=== PATIENT | male | born 1995 | race Caucasian/White ===

== ENCOUNTER 2018-04-12 16:28 | Emergency (ER) | payer BC, OTHER ==
[~2018-04-12] VITALS: Ht 175.3 cm; Wt 53.1 kg
[~2018-04-12 16:28] MED LIST: CEFP200 PO; CLON.1 PO; CLON.5 PO; CYCL10 PO; Clonazepam0.5 MG PO; INSUASPI SUBQ; INSULANI SUBQ; INSULANPEN SC; Lantus100 UNIT/1 SC; NAPR500 PO; Novolog Fl100 UNIT/1 SC; OLAN5 PO; OMEPRAZOLE MAGN20 MG PO; ONDA4 PO; ONDA8 PO; Percocet 5-3251 EACH PO; QUET25 PO; SERT100 PO; TRAZ50 PO; ZOLP5 PO; Zofran Odt4 MG SL
[2018-04-12 17:02] LABS: BASOPHILS ABSOLUTE AUTO 0.02 K/mm3 (0.00-0.23); BASOPHILS PERCENT AUTO 0 % (0-2); EOSINOPHILS PERCENT AUTO 0 % (0-6); Hematocrit 42.4 % (37.0-53.0); Hemoglobin 14.7 g/dL (13.5-17.5); IMMATURE GRAN ABSOLUTE AUTO 0.04 K/mm3 (0.00-0.10); IMMATURE GRAN PERCENT AUTO 0 % (0-1); LYMPHOCYTES ABSOLUTE AUTO 0.86 K/mm3 (0.84-5.20); LYMPHOCYTES PERCENT AUTO 7 % (21-46); MONOCYTES ABSOLUTE AUTO 0.18 K/mm3 (0.16-1.47); MONOCYTES PERCENT AUTO 2 % (4-13); Mean Corpuscular HGB 29.4 pg (26.0-34.0); Mean Corpuscular HGB Conc 34.7 g/dL (31.5-36.5); Mean Corpuscular Volume 85 fL (80-100); Mean Platelet Volume 10.1 fL (9.1-12.4); NEUTROPHILS ABSOLUTE AUTO 10.89 K/mm3 (1.96-9.15); NEUTROPHILS PERCENT AUTO 91 % (41-73); Platelet Count 260 K/mm3 (150-400); RDW Coefficient Variation 12.4 % (11.7-14.2); RDW Standard Deviation 38.1 fL (35.1-46.3); White Blood Cell Count 11.99 K/mm3 (4.00-11.30)
[2018-04-12 17:33] LABS: Alanine Aminotransfer (ALT/SGP 24 U/L (12-78); Albumin, Blood 4.6 g/dL (3.4-5.0); Albumin/Globulin Ratio 1.4 (0.8-1.8); Alk Phos 67 U/L (50-136); Anion Gap 13 mmol/L (6-16); Aspartate Aminotrans (AST/SGOT 15 U/L (12-37); Beta-hydroxybutyrate 36.4 mg/dL (0.2-2.8); Bilirubin, Total 1.2 mg/dL (0.1-1.0); Blood Urea Nitrogen 9 mg/dL (8-24); Bun/Creatinine Ratio 14.2 (12.0-20.0); CO2, Blood 24 mmol/L (21-32); Calcium, Blood 9.5 mg/dL (8.5-10.1); Chloride, Blood 102 mmol/L (98-108); Creatinine, Blood 0.63 mg/dL (0.60-1.20); Globulin, Blood 3.2 g/dL (2.2-4.0); Glomerular Filtration Rate >60 (60-); Glucose, Blood 268 mg/dL (70-99); Potassium, Blood 3.9 mmol/L (3.5-5.5); Sodium, Blood 139 mmol/L (136-145); Total Protein, Blood 7.8 g/dL (6.4-8.2)
[2018-04-12 19:05] LABS: Source, Urine Clean Catch
[2018-04-12 19:09] LABS: Appearance, Urine Clear (Clear); Bilirubin, Urine Neg (Neg); Blood, Urine Neg (Neg); Color, Urine Yellow (P-Yellow); Glucose Qualitative, Urine 4+ (Neg); Ketones, Urine 4+ (Neg); Leukocyte Esterase, Urine Neg (Neg); Nitrite, Urine Neg (Neg); Protein, Urine 2+ (Neg); Urobilinogen, Urine NORM (Normal)
[2018-04-12 19:12] LABS: Red Blood Cells, Urine 0-2 /hpf (0-2)
[2018-04-12 19:13] LABS: Bacteria Rare /hpf; Mucus Light (0-Heavy); Squamous Epithelial Cells Rare /hpf (Few)
[2018-04-12] MEDS ORDERED: Zofran Odt4 MG PO (19:25)
== END 2018-04-12 20:00 | disposition home or self-care (01) ==
LOC: ER 16:28
PROVIDERS: Emergency Medicine
DX: E10.65 Type 1 diabetes mellitus with hyperglycemia (principal); R10.13 Epigastric pain; R11.2 Nausea with vomiting, unspecified; F12.90 Cannabis use, unspecified, uncomplicated; F17.210 Nicotine dependence, cigarettes, uncomplicated; Z88.0 Allergy status to penicillin; Z88.6 Allergy status to analgesic agent
CPT/HCPCS: 36415; 71046; 80053; 81001; 82010; 82947; 83690; 85025; 96361; 96374; 99283; J1815; J2405; J7030

== ENCOUNTER 2018-07-01 08:16 | Emergency (ER) | payer BC, OTHER ==
[~2018-07-01] VITALS: Ht 175.3 cm; Wt 77.1 kg
[~2018-07-01 08:16] MED LIST changes: +Zofran Odt4 MG PO
[2018-07-01] MEDS ORDERED: NAPR500 PO (09:24)
[2018-07-01] MEDS ORDERED: CYCL10 PO (09:24)
[2018-07-01 10:05] LABS: Base Excess Venous 4.2 mmol/L; Bicarbonate Venous 27.3 mmol/L (24.0-30.0); PCO2 Venous 49.5 mmHg (38-42); PO2 Venous 115 mmHg (38-42); pH Blood Venous 7.38 (7.34-7.37)
[2018-07-01 10:12] LABS: BASOPHILS ABSOLUTE AUTO 0.02 K/mm3 (0.00-0.23); BASOPHILS PERCENT AUTO 0 % (0-2); EOSINOPHILS ABSOLUTE AUTO 0.01 K/mm3 (0.00-0.68); EOSINOPHILS PERCENT AUTO 0 % (0-6); Hematocrit 39.6 % (37.0-53.0); Hemoglobin 13.3 g/dL (13.5-17.5); IMMATURE GRAN ABSOLUTE AUTO 0.03 K/mm3 (0.00-0.10); IMMATURE GRAN PERCENT AUTO 0 % (0-1); LYMPHOCYTES ABSOLUTE AUTO 1.32 K/mm3 (0.84-5.20); LYMPHOCYTES PERCENT AUTO 12 % (21-46); MONOCYTES ABSOLUTE AUTO 0.46 K/mm3 (0.16-1.47); MONOCYTES PERCENT AUTO 4 % (4-13); Mean Corpuscular HGB 29.4 pg (26.0-34.0); Mean Corpuscular HGB Conc 33.6 g/dL (31.5-36.5); Mean Corpuscular Volume 87 fL (80-100); Mean Platelet Volume 9.8 fL (9.1-12.4); NEUTROPHILS ABSOLUTE AUTO 9.68 K/mm3 (1.96-9.15); NEUTROPHILS PERCENT AUTO 84 % (41-73); Platelet Count 242 K/mm3 (150-400); RDW Coefficient Variation 12.2 % (11.7-14.2); RDW Standard Deviation 39.1 fL (35.1-46.3); Red Blood Cell Count 4.53 M/mm3 (4.30-5.90); White Blood Cell Count 11.52 K/mm3 (4.00-11.30)
[2018-07-01 10:18] LABS: Alanine Aminotransfer (ALT/SGP 22 U/L (12-78); Albumin, Blood 4.2 g/dL (3.4-5.0); Albumin/Globulin Ratio 1.4 (0.8-1.8); Alk Phos 55 U/L (50-136); Anion Gap 8 mmol/L (6-16); Aspartate Aminotrans (AST/SGOT 14 U/L (12-37); Bilirubin, Total 0.7 mg/dL (0.1-1.0); Blood Urea Nitrogen 12 mg/dL (8-24); Bun/Creatinine Ratio 19.1 (12.0-20.0); CO2, Blood 28 mmol/L (21-32); Calcium, Blood 8.7 mg/dL (8.5-10.1); Chloride, Blood 105 mmol/L (98-108); Creatinine, Blood 0.63 mg/dL (0.60-1.20); Globulin, Blood 2.9 g/dL (2.2-4.0); Glomerular Filtration Rate >60 (60-); Glucose, Blood 180 mg/dL (70-99); Potassium, Blood 4.2 mmol/L (3.5-5.5); Sodium, Blood 141 mmol/L (136-145); Total Protein, Blood 7.1 g/dL (6.4-8.2)
[2018-07-01] MEDS ORDERED: PROM25 PO (10:53)
[2018-07-01] MEDS ORDERED: Prilosec Otc20 MG PO (10:53)
[2018-07-01] MEDS ORDERED: MIRALAX17 GM PO (10:53)
== END 2018-07-01 11:14 | disposition home or self-care (01) ==
LOC: ER 08:16
PROVIDERS: Emergency Medicine
DX: R10.12 Left upper quadrant pain (principal); R11.2 Nausea with vomiting, unspecified; E10.9 Type 1 diabetes mellitus without complications; F41.9 Anxiety disorder, unspecified; F32.9 Major depressive disorder, single episode, unspecified; F17.210 Nicotine dependence, cigarettes, uncomplicated; Z88.0 Allergy status to penicillin; Z88.6 Allergy status to analgesic agent
CPT/HCPCS: 36415; 74022; 80053; 81000; 82803; 83690; 85025; 96361; 96374; 99284-25; J2550; J7120

== ENCOUNTER 2018-11-29 17:39 | Emergency (ER) | payer BC, OTHER ==
[~2018-11-29] VITALS: Ht 175.3 cm; Wt 77.1 kg
[~2018-11-29 17:39] MED LIST changes: +MIRALAX17 GM PO; +PROM25 PO; +Prilosec Otc20 MG PO
[2018-11-29 18:24] LABS: BASOPHILS ABSOLUTE AUTO 0.04 K/mm3 (0.00-0.23); BASOPHILS PERCENT AUTO 0 % (0-2); EOSINOPHILS PERCENT AUTO 0 % (0-6); Hematocrit 44.2 % (37.0-53.0); Hemoglobin 15.1 g/dL (13.5-17.5); IMMATURE GRAN ABSOLUTE AUTO 0.04 K/mm3 (0.00-0.10); IMMATURE GRAN PERCENT AUTO 0 % (0-1); LYMPHOCYTES ABSOLUTE AUTO 1.21 K/mm3 (0.84-5.20); LYMPHOCYTES PERCENT AUTO 8 % (21-46); MONOCYTES PERCENT AUTO 3 % (4-13); Mean Corpuscular HGB 29.4 pg (26.0-34.0); Mean Corpuscular HGB Conc 34.2 g/dL (31.5-36.5); Mean Corpuscular Volume 86 fL (80-100); Mean Platelet Volume 10.3 fL (9.1-12.4); NEUTROPHILS ABSOLUTE AUTO 12.74 K/mm3 (1.96-9.15); NEUTROPHILS PERCENT AUTO 88 % (41-73); Platelet Count 300 K/mm3 (150-400); RDW Standard Deviation 38.2 fL (35.1-46.3); Red Blood Cell Count 5.13 M/mm3 (4.30-5.90); White Blood Cell Count 14.43 K/mm3 (4.00-11.30)
[2018-11-29 18:45] LABS: Alanine Aminotransfer (ALT/SGP 31 U/L (12-78); Albumin, Blood 4.5 g/dL (3.4-5.0); Albumin/Globulin Ratio 1.2 (0.8-1.8); Alk Phos 72 U/L (50-136); Anion Gap 9 mmol/L (6-16); Aspartate Aminotrans (AST/SGOT 10 U/L (12-37); Bilirubin, Total 0.7 mg/dL (0.1-1.0); Blood Urea Nitrogen 11 mg/dL (8-24); Bun/Creatinine Ratio 15.6 (12.0-20.0); CO2, Blood 27 mmol/L (21-32); Calcium, Blood 9.2 mg/dL (8.5-10.1); Chloride, Blood 102 mmol/L (98-108); Creatinine, Blood 0.71 mg/dL (0.60-1.20); Globulin, Blood 3.7 g/dL (2.2-4.0); Glomerular Filtration Rate >60 (60-); Glucose, Blood 210 mg/dL (70-99); Potassium, Blood 3.7 mmol/L (3.5-5.5); Sodium, Blood 138 mmol/L (136-145); Total Protein, Blood 8.2 g/dL (6.4-8.2)
[2018-11-29] MEDS ORDERED: ONDA4ODT MM (22:11)
[2018-11-29] MEDS ORDERED: PHENERGAN25 MG PR (22:11)
[2018-11-29] MEDS ORDERED: OMEPRAZOLE MAGN20 MG PO (22:11)
== END 2018-11-29 22:42 | disposition home or self-care (01) ==
LOC: ER 17:39
PROVIDERS: Physician Assistant
DX: K52.9 Noninfective gastroenteritis and colitis, unspecified (principal); E10.9 Type 1 diabetes mellitus without complications; F41.9 Anxiety disorder, unspecified; F32.9 Major depressive disorder, single episode, unspecified; F17.210 Nicotine dependence, cigarettes, uncomplicated; Z88.1 Allergy status to other antibiotic agents; Z88.6 Allergy status to analgesic agent; Z79.899 Other long term (current) drug therapy
CPT/HCPCS: 36415; 80053; 82947; 83690; 85025; 93005; 93010; 96361; 96374; 96375; 99284-25; J1200; J1630; J2405; J2550; J7030

== ENCOUNTER 2018-12-02 15:51 | Emergency (ER) | payer BC, OTHER ==
[~2018-12-02] VITALS: Ht 175.3 cm; Wt 74.8 kg
[2018-12-02 16:43] LABS: BASOPHILS ABSOLUTE AUTO 0.03 K/mm3 (0.00-0.23); BASOPHILS PERCENT AUTO 0 % (0-2); EOSINOPHILS PERCENT AUTO 0 % (0-6); Hematocrit 43.4 % (37.0-53.0); Hemoglobin 14.8 g/dL (13.5-17.5); IMMATURE GRAN ABSOLUTE AUTO 0.04 K/mm3 (0.00-0.10); IMMATURE GRAN PERCENT AUTO 0 % (0-1); LYMPHOCYTES ABSOLUTE AUTO 1.61 K/mm3 (0.84-5.20); LYMPHOCYTES PERCENT AUTO 12 % (21-46); MONOCYTES ABSOLUTE AUTO 0.73 K/mm3 (0.16-1.47); MONOCYTES PERCENT AUTO 6 % (4-13); Mean Corpuscular HGB 29.4 pg (26.0-34.0); Mean Corpuscular HGB Conc 34.1 g/dL (31.5-36.5); Mean Corpuscular Volume 86 fL (80-100); NEUTROPHILS ABSOLUTE AUTO 10.87 K/mm3 (1.96-9.15); NEUTROPHILS PERCENT AUTO 82 % (41-73); Platelet Count 272 K/mm3 (150-400); Red Blood Cell Count 5.03 M/mm3 (4.30-5.90); White Blood Cell Count 13.28 K/mm3 (4.00-11.30)
[2018-12-02 17:23] LABS: Magnesium, Blood 2.4 mg/dL (1.6-2.4)
[2018-12-02 17:32] LABS: Alanine Aminotransfer (ALT/SGP 58 U/L (12-78); Albumin, Blood 3.8 g/dL (3.4-5.0); Albumin/Globulin Ratio 1.2 (0.8-1.8); Alk Phos 65 U/L (50-136); Anion Gap 11 mmol/L (6-16); Aspartate Aminotrans (AST/SGOT 36 U/L (12-37); Beta-hydroxybutyrate 11.5 mg/dL (0.2-2.8); Bilirubin, Total 1.4 mg/dL (0.1-1.0); Blood Urea Nitrogen 15 mg/dL (8-24); Bun/Creatinine Ratio 21.5 (12.0-20.0); CO2, Blood 24 mmol/L (21-32); Chloride, Blood 101 mmol/L (98-108); Globulin, Blood 3.2 g/dL (2.2-4.0); Glomerular Filtration Rate >60 (60-); Glucose, Blood 224 mg/dL (70-99); Sodium, Blood 136 mmol/L (136-145)
[2018-12-02 19:58] LABS: Source, Urine Clean Catch
[2018-12-02 20:05] LABS: Appearance, Urine Clear (Clear); Bilirubin, Urine Neg (Neg); Blood, Urine 1+ (Neg); Color, Urine Yellow (P-Yellow); Glucose Qualitative, Urine 2+ (Neg); Ketones, Urine 4+ (Neg); Leukocyte Esterase, Urine Neg (Neg); Nitrite, Urine Neg (Neg); Protein, Urine 1+ (Neg); Specific Gravity, Urine 1.025 (1.003-1.022); Urobilinogen, Urine 2+ (Normal)
[2018-12-02 20:37] LABS: Bacteria Not Seen /hpf; Red Blood Cells, Urine 0-2 /hpf (0-2); Squamous Epithelial Cells Rare /hpf (Few); White Blood Cells, Urine 0-2 /hpf (0-5)
[2018-12-02] MEDS ORDERED: PROM25 PO (21:52)
[2018-12-02] MEDS ORDERED: ONDA4ODT MM (21:52)
== END 2018-12-02 22:03 | disposition home or self-care (01) ==
LOC: ER 15:51
PROVIDERS: Physician Assistant
DX: E10.65 Type 1 diabetes mellitus with hyperglycemia (principal); E86.0 Dehydration; K29.70 Gastritis, unspecified, without bleeding; Z88.0 Allergy status to penicillin; Z88.8 Allergy status to other drugs, medicaments and biological substances; Z79.899 Other long term (current) drug therapy; F41.9 Anxiety disorder, unspecified; F32.9 Major depressive disorder, single episode, unspecified; F17.210 Nicotine dependence, cigarettes, uncomplicated
CPT/HCPCS: 36415; 80053; 81001; 82010; 82947; 83735; 85025; 93005; 93010; 96361; 96374; 96375; 99283-25; J2405; J2550; J7030

== ENCOUNTER → 2018-12-02 | Outpatient (CLI) | payer BC, OTHER ==
[~2018-12-02] MED LIST changes: +ONDA4ODT MM; +PHENERGAN25 MG PR
[2018-12-02 13:30] LABS: BASOPHILS ABSOLUTE AUTO 0.03 K/mm3 (0.00-0.23); BASOPHILS PERCENT AUTO 0 % (0-2); EOSINOPHILS ABSOLUTE AUTO 0.02 K/mm3 (0.00-0.68); EOSINOPHILS PERCENT AUTO 0 % (0-6); Hematocrit 47.5 % (37.0-53.0); Hemoglobin 16.6 g/dL (13.5-17.5); IMMATURE GRAN ABSOLUTE AUTO 0.05 K/mm3 (0.00-0.10); IMMATURE GRAN PERCENT AUTO 0 % (0-1); LYMPHOCYTES ABSOLUTE AUTO 1.52 K/mm3 (0.84-5.20); LYMPHOCYTES PERCENT AUTO 11 % (21-46); MONOCYTES ABSOLUTE AUTO 0.78 K/mm3 (0.16-1.47); MONOCYTES PERCENT AUTO 6 % (4-13); Mean Corpuscular HGB 29.2 pg (26.0-34.0); Mean Corpuscular HGB Conc 34.9 g/dL (31.5-36.5); Mean Corpuscular Volume 84 fL (80-100); Mean Platelet Volume 10.2 fL (9.1-12.4); NEUTROPHILS ABSOLUTE AUTO 11.63 K/mm3 (1.96-9.15); NEUTROPHILS PERCENT AUTO 83 % (41-73); Platelet Count 319 K/mm3 (150-400); RDW Coefficient Variation 12.3 % (11.7-14.2); RDW Standard Deviation 37.1 fL (35.1-46.3); Red Blood Cell Count 5.69 M/mm3 (4.30-5.90); White Blood Cell Count 14.03 K/mm3 (4.00-11.30)
[2018-12-02 13:45] LABS: Alanine Aminotransfer (ALT/SGP 55 U/L (12-78); Albumin, Blood 4.6 g/dL (3.4-5.0); Albumin/Globulin Ratio 1.2 (0.8-1.8); Alk Phos 78 U/L (40-126); Anion Gap 13 mmol/L (6-16); Aspartate Aminotrans (AST/SGOT 34 U/L (12-37); Bilirubin, Total 1.7 mg/dL (0.1-1.0); Blood Urea Nitrogen 16 mg/dL (8-24); CO2, Blood 29 mmol/L (21-32); Calcium, Blood 9.7 mg/dL (8.5-10.1); Chloride, Blood 94 mmol/L (98-108); Globulin, Blood 3.7 g/dL (2.2-4.0); Glomerular Filtration Rate >60 (60-); Glucose, Blood 216 mg/dL (70-99); Potassium, Blood 3.9 mmol/L (3.5-5.5); Sodium, Blood 136 mmol/L (136-145); Total Protein, Blood 8.3 g/dL (6.4-8.2)
== END ==
LOC: LAB SHORT 13:24 → LAB EV 13:24
PROVIDERS: Emergency Medicine
DX: R11.2 Nausea with vomiting, unspecified (principal); R10.9 Unspecified abdominal pain
CPT/HCPCS: 80053; 82010; 83690; 85025

== ENCOUNTER 2018-12-04 20:25 | Emergency (ER) | payer BC, OTHER ==
[~2018-12-04] VITALS: Ht 175.3 cm; Wt 72.6 kg
[2018-12-04 21:10] LABS: BASOPHILS ABSOLUTE AUTO 0.05 K/mm3 (0.00-0.23); BASOPHILS PERCENT AUTO 0 % (0-2); EOSINOPHILS ABSOLUTE AUTO 0.02 K/mm3 (0.00-0.68); EOSINOPHILS PERCENT AUTO 0 % (0-6); Hemoglobin 15.4 g/dL (13.5-17.5); IMMATURE GRAN ABSOLUTE AUTO 0.04 K/mm3 (0.00-0.10); IMMATURE GRAN PERCENT AUTO 0 % (0-1); LYMPHOCYTES ABSOLUTE AUTO 1.74 K/mm3 (0.84-5.20); LYMPHOCYTES PERCENT AUTO 15 % (21-46); MONOCYTES ABSOLUTE AUTO 0.61 K/mm3 (0.16-1.47); MONOCYTES PERCENT AUTO 5 % (4-13); Mean Corpuscular HGB 29.3 pg (26.0-34.0); Mean Corpuscular HGB Conc 34.2 g/dL (31.5-36.5); Mean Corpuscular Volume 86 fL (80-100); Mean Platelet Volume 9.9 fL (9.1-12.4); NEUTROPHILS ABSOLUTE AUTO 9.04 K/mm3 (1.96-9.15); NEUTROPHILS PERCENT AUTO 79 % (41-73); Platelet Count 309 K/mm3 (150-400); RDW Coefficient Variation 11.8 % (11.7-14.2); Red Blood Cell Count 5.25 M/mm3 (4.30-5.90)
[2018-12-04 21:53] LABS: Beta-hydroxybutyrate 5.7 mg/dL (0.2-2.8)
[2018-12-04 22:14] LABS: Alanine Aminotransfer (ALT/SGP 148 U/L (12-78); Albumin, Blood 4.2 g/dL (3.4-5.0); Albumin/Globulin Ratio 1.3 (0.8-1.8); Alk Phos 72 U/L (50-136); Anion Gap 9 mmol/L (6-16); Aspartate Aminotrans (AST/SGOT 67 U/L (12-37); Bilirubin, Total 1.1 mg/dL (0.1-1.0); Blood Urea Nitrogen 11 mg/dL (8-24); CO2, Blood 30 mmol/L (21-32); Calcium, Blood 8.8 mg/dL (8.5-10.1); Chloride, Blood 102 mmol/L (98-108); Creatinine, Blood 0.79 mg/dL (0.60-1.20); Globulin, Blood 3.3 g/dL (2.2-4.0); Glomerular Filtration Rate >60 (60-); Glucose, Blood 40 mg/dL (70-99); Potassium, Blood 3.5 mmol/L (3.5-5.5); Sodium, Blood 141 mmol/L (136-145); Total Protein, Blood 7.5 g/dL (6.4-8.2)
== END 2018-12-05 00:28 | disposition home or self-care (01) ==
LOC: ER 20:25
PROVIDERS: Emergency Medicine
DX: K52.9 Noninfective gastroenteritis and colitis, unspecified (principal); E10.649 Type 1 diabetes mellitus with hypoglycemia without coma; Z88.8 Allergy status to other drugs, medicaments and biological substances; Z79.4 Long term (current) use of insulin; F32.9 Major depressive disorder, single episode, unspecified; F41.9 Anxiety disorder, unspecified; F17.210 Nicotine dependence, cigarettes, uncomplicated
CPT/HCPCS: 36415; 80053; 82010; 82947; 83690; 85025; 96374; 96375; 99284-25; J2405

== ENCOUNTER 2019-04-20 15:52 | Emergency (ER) | payer BC, OTHER ==
[~2019-04-20] VITALS: Ht 175.3 cm; Wt 77.1 kg
[2019-04-20 16:24] LABS: BASOPHILS ABSOLUTE AUTO 0.04 K/mm3 (0.00-0.23); BASOPHILS PERCENT AUTO 0 % (0-2); EOSINOPHILS ABSOLUTE AUTO 0.02 K/mm3 (0.00-0.68); EOSINOPHILS PERCENT AUTO 0 % (0-6); Hematocrit 45.4 % (37.0-53.0); Hemoglobin 15.2 g/dL (13.5-17.5); IMMATURE GRAN ABSOLUTE AUTO 0.08 K/mm3 (0.00-0.10); IMMATURE GRAN PERCENT AUTO 0 % (0-1); LYMPHOCYTES ABSOLUTE AUTO 1.36 K/mm3 (0.84-5.20); LYMPHOCYTES PERCENT AUTO 7 % (21-46); MONOCYTES ABSOLUTE AUTO 0.63 K/mm3 (0.16-1.47); MONOCYTES PERCENT AUTO 3 % (4-13); Mean Corpuscular HGB Conc 33.5 g/dL (31.5-36.5); Mean Corpuscular Volume 87 fL (80-100); Mean Platelet Volume 10.3 fL (9.1-12.4); NEUTROPHILS ABSOLUTE AUTO 16.38 K/mm3 (1.96-9.15); NEUTROPHILS PERCENT AUTO 89 % (41-73); Platelet Count 295 K/mm3 (150-400); RDW Coefficient Variation 12.4 % (11.7-14.2); RDW Standard Deviation 38.8 fL (35.1-46.3); Red Blood Cell Count 5.25 M/mm3 (4.30-5.90); White Blood Cell Count 18.51 K/mm3 (4.00-11.30)
[2019-04-20 16:40] LABS: Alanine Aminotransfer (ALT/SGP 25 U/L (12-78); Albumin, Blood 4.7 g/dL (3.4-5.0); Albumin/Globulin Ratio 1.3 (0.8-1.8); Alk Phos 71 U/L (50-136); Anion Gap 8 mmol/L (6-16); Aspartate Aminotrans (AST/SGOT 13 U/L (12-37); Bilirubin, Total 0.8 mg/dL (0.1-1.0); Blood Urea Nitrogen 13 mg/dL (8-24); Bun/Creatinine Ratio 19.1 (12.0-20.0); CO2, Blood 28 mmol/L (21-32); Calcium, Blood 9.8 mg/dL (8.5-10.1); Chloride, Blood 105 mmol/L (98-108); Creatinine, Blood 0.68 mg/dL (0.60-1.20); Globulin, Blood 3.5 g/dL (2.2-4.0); Glomerular Filtration Rate >60 (60-); Glucose, Blood 167 mg/dL (70-99); Sodium, Blood 141 mmol/L (136-145); Total Protein, Blood 8.2 g/dL (6.4-8.2)
[2019-04-20] MEDS ORDERED: INSULANPEN SC (17:57)
[2019-04-20 18:03] LABS: Source, Urine Clean Catch
[2019-04-20 18:08] LABS: Bilirubin, Urine Neg (Neg); Blood, Urine Neg (Neg); Glucose Qualitative, Urine Neg (Neg); Ketones, Urine 4+ (Neg); Leukocyte Esterase, Urine Neg (Neg); Nitrite, Urine Neg (Neg); Protein, Urine 1+ (Neg); Urobilinogen, Urine NORM (Normal)
[2019-04-20 18:16] LABS: Appearance, Urine Clear (Clear); Color, Urine Yellow (P-Yellow)
[2019-04-20] MEDS ORDERED: COMPAZINE10 MG PO (18:29)
== END 2019-04-20 19:03 | disposition home or self-care (01) ==
LOC: ER 15:52
PROVIDERS: Physician Assistant
DX: R11.2 Nausea with vomiting, unspecified (principal); E86.0 Dehydration; E11.9 Type 2 diabetes mellitus without complications; F41.9 Anxiety disorder, unspecified; F31.9 Bipolar disorder, unspecified; F17.210 Nicotine dependence, cigarettes, uncomplicated
CPT/HCPCS: 36415; 80053; 82947; 85025; 96361; 96374; 96375; 99284-25; J1200; J1630; J2405; J7030

== ENCOUNTER → 2019-04-22 | Outpatient (CLI) | payer BC, OTHER ==
[~2019-04-22] MED LIST changes: +ARTHRITIS PAIN57 GM TOP; +COMPAZINE10 MG PO; +METO10 PO; +Norco 5-325 Ta1 EACH PO; +Protonix40 MG PO
[2019-04-22 10:18] LABS: BASOPHILS ABSOLUTE AUTO 0.02 K/mm3 (0.00-0.23); BASOPHILS PERCENT AUTO 0 % (0-2); EOSINOPHILS PERCENT AUTO 0 % (0-6); Hematocrit 41.7 % (37.0-53.0); Hemoglobin 14.6 g/dL (13.5-17.5); IMMATURE GRAN ABSOLUTE AUTO 0.04 K/mm3 (0.00-0.10); IMMATURE GRAN PERCENT AUTO 0 % (0-1); LYMPHOCYTES ABSOLUTE AUTO 1.14 K/mm3 (0.84-5.20); LYMPHOCYTES PERCENT AUTO 8 % (21-46); MONOCYTES ABSOLUTE AUTO 0.62 K/mm3 (0.16-1.47); MONOCYTES PERCENT AUTO 4 % (4-13); Mean Corpuscular HGB 29.4 pg (26.0-34.0); Mean Platelet Volume 10.1 fL (9.1-12.4); NEUTROPHILS ABSOLUTE AUTO 12.85 K/mm3 (1.96-9.15); NEUTROPHILS PERCENT AUTO 88 % (41-73); Platelet Count 275 K/mm3 (150-400); RDW Coefficient Variation 12.5 % (11.7-14.2); RDW Standard Deviation 37.9 fL (35.1-46.3); Red Blood Cell Count 4.97 M/mm3 (4.30-5.90); White Blood Cell Count 14.67 K/mm3 (4.00-11.30)
[2019-04-22 10:27] LABS: Mean Corpuscular Volume 84 fL (80-100)
[2019-04-22 10:28] LABS: Alanine Aminotransfer (ALT/SGP 25 U/L (12-78); Albumin, Blood 4.5 g/dL (3.4-5.0); Albumin/Globulin Ratio 1.3 (0.8-1.8); Alk Phos 68 U/L (40-126); Anion Gap 12 mmol/L (6-16); Aspartate Aminotrans (AST/SGOT 14 U/L (12-37); Bilirubin, Total 1.1 mg/dL (0.1-1.0); Blood Urea Nitrogen 14 mg/dL (8-24); Bun/Creatinine Ratio 17.5 (12.0-20.0); CO2, Blood 29 mmol/L (21-32); Calcium, Blood 9.2 mg/dL (8.5-10.1); Chloride, Blood 97 mmol/L (98-108); Globulin, Blood 3.5 g/dL (2.2-4.0); Glomerular Filtration Rate >60 (60-); Glucose, Blood 171 mg/dL (70-99); Potassium, Blood 3.9 mmol/L (3.5-5.5); Sodium, Blood 138 mmol/L (136-145)
== END | disposition home or self-care (01) ==
LOC: LAB EV 10:12 → LAB SHORT 10:12
PROVIDERS: Physician Assistant Medical
DX: R10.84 Generalized abdominal pain (principal)
CPT/HCPCS: 80053; 83690; 85025

== ENCOUNTER 2019-04-24 19:27 | Emergency (ER) | payer BC, OTHER ==
[~2019-04-24] VITALS: Ht 177.8 cm; Wt 73.0 kg
[~2019-04-24 19:27] MED LIST changes: -ARTHRITIS PAIN57 GM TOP; -METO10 PO; -Norco 5-325 Ta1 EACH PO; -Protonix40 MG PO
== END 2019-04-24 23:11 | disposition home or self-care (01) ==
LOC: ER 19:27
DX: R11.2 Nausea with vomiting, unspecified (principal); R19.7 Diarrhea, unspecified; Z88.0 Allergy status to penicillin; Z88.6 Allergy status to analgesic agent; Z79.4 Long term (current) use of insulin; Z79.899 Other long term (current) drug therapy; E10.9 Type 1 diabetes mellitus without complications; F32.9 Major depressive disorder, single episode, unspecified; F41.9 Anxiety disorder, unspecified; F17.210 Nicotine dependence, cigarettes, uncomplicated
CPT/HCPCS: 76705; 82947; 96361; 96374; 96375; 99284-25; J1200; J1630; J2550; J7030

== ENCOUNTER → 2019-04-24 | Outpatient (CLI) | payer BC, OTHER ==
[2019-04-24 18:26] LABS: BASOPHILS ABSOLUTE AUTO 0.02 K/mm3 (0.00-0.23); BASOPHILS PERCENT AUTO 0 % (0-2); EOSINOPHILS ABSOLUTE AUTO 0.02 K/mm3 (0.00-0.68); EOSINOPHILS PERCENT AUTO 0 % (0-6); Hematocrit 42.8 % (37.0-53.0); IMMATURE GRAN ABSOLUTE AUTO 0.02 K/mm3 (0.00-0.10); IMMATURE GRAN PERCENT AUTO 0 % (0-1); LYMPHOCYTES ABSOLUTE AUTO 1.83 K/mm3 (0.84-5.20); LYMPHOCYTES PERCENT AUTO 19 % (21-46); MONOCYTES ABSOLUTE AUTO 0.63 K/mm3 (0.16-1.47); MONOCYTES PERCENT AUTO 6 % (4-13); Mean Corpuscular Volume 83 fL (80-100); Mean Platelet Volume 10.3 fL (9.1-12.4); NEUTROPHILS ABSOLUTE AUTO 7.27 K/mm3 (1.96-9.15); NEUTROPHILS PERCENT AUTO 74 % (41-73); Platelet Count 291 K/mm3 (150-400); RDW Coefficient Variation 12.3 % (11.7-14.2); Red Blood Cell Count 5.18 M/mm3 (4.30-5.90); White Blood Cell Count 9.79 K/mm3 (4.00-11.30)
[2019-04-24 18:35] LABS: Alanine Aminotransfer (ALT/SGP 22 U/L (12-78); Albumin, Blood 4.3 g/dL (3.4-5.0); Albumin/Globulin Ratio 1.3 (0.8-1.8); Alk Phos 67 U/L (40-126); Anion Gap 11 mmol/L (6-16); Aspartate Aminotrans (AST/SGOT 15 U/L (12-37); Bilirubin, Total 1.4 mg/dL (0.1-1.0); Blood Urea Nitrogen 12 mg/dL (8-24); Bun/Creatinine Ratio 16.9 (12.0-20.0); CO2, Blood 29 mmol/L (21-32); Calcium, Blood 9.5 mg/dL (8.5-10.1); Chloride, Blood 99 mmol/L (98-108); Creatinine, Blood 0.71 mg/dL (0.60-1.20); Globulin, Blood 3.4 g/dL (2.2-4.0); Glomerular Filtration Rate >60 (60-); Glucose, Blood 130 mg/dL (70-99); Potassium, Blood 3.7 mmol/L (3.5-5.5); Sodium, Blood 139 mmol/L (136-145); Total Protein, Blood 7.7 g/dL (6.4-8.2)
== END | disposition home or self-care (01) ==
LOC: LAB EV 18:20 → LAB SHORT 18:20
PROVIDERS: Physician Assistant
DX: R10.13 Epigastric pain (principal)
CPT/HCPCS: 80053; 83690; 85025

== ENCOUNTER 2019-04-26 00:34 | Emergency (ER) | payer BC, OTHER ==
[~2019-04-26] VITALS: Ht 177.8 cm; Wt 72.6 kg
[2019-04-26 04:07] LABS: BASOPHILS ABSOLUTE AUTO 0.07 K/mm3 (0.00-0.23); BASOPHILS PERCENT AUTO 1 % (0-2); EOSINOPHILS ABSOLUTE AUTO 0.13 K/mm3 (0.00-0.68); EOSINOPHILS PERCENT AUTO 2 % (0-6); Hematocrit 40.4 % (37.0-53.0); Hemoglobin 13.6 g/dL (13.5-17.5); IMMATURE GRAN ABSOLUTE AUTO 0.01 K/mm3 (0.00-0.10); IMMATURE GRAN PERCENT AUTO 0 % (0-1); LYMPHOCYTES ABSOLUTE AUTO 1.87 K/mm3 (0.84-5.20); LYMPHOCYTES PERCENT AUTO 24 % (21-46); MONOCYTES ABSOLUTE AUTO 0.59 K/mm3 (0.16-1.47); MONOCYTES PERCENT AUTO 8 % (4-13); Mean Corpuscular HGB 28.9 pg (26.0-34.0); Mean Corpuscular HGB Conc 33.7 g/dL (31.5-36.5); Mean Platelet Volume 10.3 fL (9.1-12.4); NEUTROPHILS ABSOLUTE AUTO 5.01 K/mm3 (1.96-9.15); NEUTROPHILS PERCENT AUTO 65 % (41-73); Platelet Count 239 K/mm3 (150-400); RDW Coefficient Variation 11.9 % (11.7-14.2); RDW Standard Deviation 37.4 fL (35.1-46.3); White Blood Cell Count 7.68 K/mm3 (4.00-11.30)
[2019-04-26 04:09] LABS: Mean Corpuscular Volume 86 fL (80-100)
[2019-04-26 04:31] LABS: Alanine Aminotransfer (ALT/SGP 22 U/L (12-78); Albumin, Blood 3.8 g/dL (3.4-5.0); Albumin/Globulin Ratio 1.4 (0.8-1.8); Alk Phos 57 U/L (50-136); Anion Gap 9 mmol/L (6-16); Aspartate Aminotrans (AST/SGOT 9 U/L (12-37); Bilirubin, Total 1.4 mg/dL (0.1-1.0); Blood Urea Nitrogen 10 mg/dL (8-24); Bun/Creatinine Ratio 15.4 (12.0-20.0); CO2, Blood 27 mmol/L (21-32); Calcium, Blood 8.4 mg/dL (8.5-10.1); Chloride, Blood 99 mmol/L (98-108); Creatinine, Blood 0.65 mg/dL (0.60-1.20); Globulin, Blood 2.7 g/dL (2.2-4.0); Glomerular Filtration Rate >60 (60-); Glucose, Blood 301 mg/dL (70-99); Magnesium, Blood 2.1 mg/dL (1.6-2.4); Sodium, Blood 135 mmol/L (136-145); Total Protein, Blood 6.5 g/dL (6.4-8.2)
[2019-04-26] MEDS ORDERED: METO10 PO (05:28)
[2019-04-26] MEDS ORDERED: Protonix40 MG PO (05:28)
== END 2019-04-26 08:10 | disposition home or self-care (01) ==
LOC: ER 00:34
PROVIDERS: Emergency Medicine
DX: G43.A0 Cyclical vomiting, in migraine, not intractable (principal); E86.0 Dehydration; E10.65 Type 1 diabetes mellitus with hyperglycemia; F41.9 Anxiety disorder, unspecified; F32.9 Major depressive disorder, single episode, unspecified; F17.200 Nicotine dependence, unspecified, uncomplicated; Z88.1 Allergy status to other antibiotic agents; Z79.4 Long term (current) use of insulin
CPT/HCPCS: 36415; 80053; 82947; 83690; 83735; 85025; 96361; 96374; 96375; 96376; 99284-25; J1200; J1630; J2765; J7120

== ENCOUNTER 2019-06-09 17:01 | Emergency (ER) | payer OTHER ==
[~2019-06-09] VITALS: Ht 177.8 cm; Wt 77.1 kg
[~2019-06-09 17:01] MED LIST changes: +METO10 PO; +Protonix40 MG PO
[2019-06-09 17:58] LABS: BASOPHILS ABSOLUTE AUTO 0.04 K/mm3 (0.00-0.23); BASOPHILS PERCENT AUTO 0 % (0-2); EOSINOPHILS ABSOLUTE AUTO 0.06 K/mm3 (0.00-0.68); EOSINOPHILS PERCENT AUTO 0 % (0-6); Hematocrit 43.8 % (37.0-53.0); Hemoglobin 14.9 g/dL (13.5-17.5); IMMATURE GRAN ABSOLUTE AUTO 0.11 K/mm3 (0.00-0.10); IMMATURE GRAN PERCENT AUTO 1 % (0-1); LYMPHOCYTES ABSOLUTE AUTO 1.49 K/mm3 (0.84-5.20); LYMPHOCYTES PERCENT AUTO 9 % (21-46); MONOCYTES ABSOLUTE AUTO 1.16 K/mm3 (0.16-1.47); MONOCYTES PERCENT AUTO 7 % (4-13); Mean Corpuscular HGB 29.3 pg (26.0-34.0); Mean Corpuscular Volume 86 fL (80-100); Mean Platelet Volume 10.4 fL (9.1-12.4); NEUTROPHILS ABSOLUTE AUTO 14.16 K/mm3 (1.96-9.15); NEUTROPHILS PERCENT AUTO 83 % (41-73); Platelet Count 255 K/mm3 (150-400); RDW Coefficient Variation 12.3 % (11.7-14.2); RDW Standard Deviation 38.8 fL (35.1-46.3); Red Blood Cell Count 5.09 M/mm3 (4.30-5.90); White Blood Cell Count 17.02 K/mm3 (4.00-11.30)
[2019-06-09 18:08] LABS: Alanine Aminotransfer (ALT/SGP 31 U/L (12-78); Albumin, Blood 4.3 g/dL (3.4-5.0); Albumin/Globulin Ratio 1.2 (0.8-1.8); Alk Phos 75 U/L (50-136); Anion Gap 8 mmol/L (6-16); Aspartate Aminotrans (AST/SGOT 22 U/L (12-37); Bilirubin, Total 0.9 mg/dL (0.1-1.0); Blood Urea Nitrogen 13 mg/dL (8-24); Bun/Creatinine Ratio 19.8 (12.0-20.0); CO2, Blood 28 mmol/L (21-32); Calcium, Blood 9.7 mg/dL (8.5-10.1); Chloride, Blood 104 mmol/L (98-108); Creatinine, Blood 0.66 mg/dL (0.60-1.20); Globulin, Blood 3.6 g/dL (2.2-4.0); Glomerular Filtration Rate >60 (60-); Glucose, Blood 140 mg/dL (70-99); Potassium, Blood 3.8 mmol/L (3.5-5.5); Sodium, Blood 140 mmol/L (136-145); Total Protein, Blood 7.9 g/dL (6.4-8.2)
[2019-06-09 18:10] LABS: International Normalized Ratio 1.02; Prothrombin Time Results 10.8 Sec (9.7-11.5)
[2019-06-09 19:17] LABS: Source, Urine Clean Catch
[2019-06-09 19:27] LABS: Bilirubin, Urine Neg (Neg); Blood, Urine 5+ (Neg); Glucose Qualitative, Urine Neg (Neg); Ketones, Urine 3+ (Neg); Leukocyte Esterase, Urine Neg (Neg); Nitrite, Urine Neg (Neg); Protein, Urine 3+ (Neg); Specific Gravity, Urine 1.015 (1.003-1.022); Urobilinogen, Urine NORM (Normal)
[2019-06-09 19:34] LABS: Appearance, Urine Clear (Clear); Color, Urine Yellow (P-Yellow)
[2019-06-09 19:36] LABS: Amorphous Light (0-Heavy); Bacteria Few /hpf; Hyaline Casts 0-2 /lpf (0-2); Squamous Epithelial Cells Not Seen /hpf (Few)
[2019-06-09] MEDS ORDERED: CYCL10 PO (19:51)
[2019-06-09] MEDS ORDERED: Norco 5-325 Ta1 EACH PO (19:51)
== END 2019-06-09 20:52 | disposition home or self-care (01) ==
LOC: ER 17:01
PROVIDERS: Physician Assistant
DX: S40.012A Contusion of left shoulder, initial encounter (principal); M54.2 Cervicalgia; M25.561 Pain in right knee; R07.9 Chest pain, unspecified; M85.80 Other specified disorders of bone density and structure, unspecified site; M54.6 Pain in thoracic spine; V49.9XXA Car occupant (driver) (passenger) injured in unspecified traffic accident, initial encounter; Z88.0 Allergy status to penicillin; Z88.2 Allergy status to sulfonamides; Z79.899 Other long term (current) drug therapy; E10.9 Type 1 diabetes mellitus without complications; F32.9 Major depressive disorder, single episode, unspecified; F41.9 Anxiety disorder, unspecified; F17.210 Nicotine dependence, cigarettes, uncomplicated
CPT/HCPCS: 36415; 71260; 72125; 73562-RT; 80053; 81001; 83690; 85025; 85610; 85730; 86850; 86900; 86901; 90471; 90714; 96361; 96374-59; 96375-59; 99284-25; J2270; J3010; J7030; L0160; Q9967

== ENCOUNTER 2019-06-20 00:24 | Emergency (ER) | payer BC, OTHER ==
[~2019-06-20] VITALS: Ht 175.3 cm; Wt 77.1 kg
[~2019-06-20 00:24] MED LIST changes: +Norco 5-325 Ta1 EACH PO
[2019-06-20 03:36] LABS: BASOPHILS ABSOLUTE AUTO 0.02 K/mm3 (0.00-0.23); BASOPHILS PERCENT AUTO 0 % (0-2); EOSINOPHILS PERCENT AUTO 0 % (0-6); Hematocrit 39.9 % (37.0-53.0); Hemoglobin 13.6 g/dL (13.5-17.5); IMMATURE GRAN ABSOLUTE AUTO 0.05 K/mm3 (0.00-0.10); IMMATURE GRAN PERCENT AUTO 0 % (0-1); LYMPHOCYTES ABSOLUTE AUTO 1.17 K/mm3 (0.84-5.20); LYMPHOCYTES PERCENT AUTO 9 % (21-46); MONOCYTES ABSOLUTE AUTO 0.43 K/mm3 (0.16-1.47); MONOCYTES PERCENT AUTO 3 % (4-13); Mean Corpuscular HGB 29.1 pg (26.0-34.0); Mean Corpuscular HGB Conc 34.1 g/dL (31.5-36.5); Mean Corpuscular Volume 85 fL (80-100); Mean Platelet Volume 9.7 fL (9.1-12.4); NEUTROPHILS ABSOLUTE AUTO 11.14 K/mm3 (1.96-9.15); NEUTROPHILS PERCENT AUTO 87 % (41-73); Platelet Count 311 K/mm3 (150-400); RDW Coefficient Variation 12.5 % (11.7-14.2); RDW Standard Deviation 38.7 fL (35.1-46.3); Red Blood Cell Count 4.67 M/mm3 (4.30-5.90); White Blood Cell Count 12.81 K/mm3 (4.00-11.30)
[2019-06-20 03:37] LABS: Base Excess Venous 3.3 mmol/L; Bicarbonate Venous 27.2 mmol/L (24.0-30.0); PO2 Venous 117 mmHg (38-42); pH Blood Venous 7.45 (7.34-7.37)
[2019-06-20 03:58] LABS: Alanine Aminotransfer (ALT/SGP 25 U/L (12-78); Albumin, Blood 4.1 g/dL (3.4-5.0); Albumin/Globulin Ratio 1.1 (0.8-1.8); Alk Phos 89 U/L (50-136); Anion Gap 10 mmol/L (6-16); Aspartate Aminotrans (AST/SGOT 11 U/L (12-37); Bilirubin, Total 0.8 mg/dL (0.1-1.0); Blood Urea Nitrogen 16 mg/dL (8-24); Bun/Creatinine Ratio 29.5 (12.0-20.0); CO2, Blood 27 mmol/L (21-32); Calcium, Blood 9.2 mg/dL (8.5-10.1); Chloride, Blood 100 mmol/L (98-108); Creatinine, Blood 0.54 mg/dL (0.60-1.20); Ethanol (Alcohol), Blood, Med <3 mg/dL; Globulin, Blood 3.7 g/dL (2.2-4.0); Glomerular Filtration Rate >60 (60-); Glucose, Blood 235 mg/dL (70-99); Magnesium, Blood 1.9 mg/dL (1.6-2.4); Sodium, Blood 137 mmol/L (136-145); Total Protein, Blood 7.8 g/dL (6.4-8.2)
[2019-06-20 04:10] LABS: Beta-hydroxybutyrate 7.2 mg/dL (0.2-2.8)
[2019-06-20 04:23] LABS: Source, Urine Clean Catch
[2019-06-20 04:27] LABS: Bilirubin, Urine Neg (Neg); Blood, Urine 1+ (Neg); Glucose Qualitative, Urine 4+ (Neg); Ketones, Urine 4+ (Neg); Leukocyte Esterase, Urine Neg (Neg); Nitrite, Urine Neg (Neg); Protein, Urine 2+ (Neg); Specific Gravity, Urine 1.025 (1.003-1.022); Urobilinogen, Urine NORM (Normal)
[2019-06-20 04:32] LABS: Appearance, Urine Clear (Clear); Color, Urine Yellow (P-Yellow)
[2019-06-20 04:37] LABS: Amorphous Light (0-Heavy); Bacteria Few /hpf; Mucus Light (0-Heavy); Squamous Epithelial Cells Not Seen /hpf (Few)
[2019-06-20 04:41] LABS: U Amphetamine Screen Not Detected; U Barbituate Screen Not Detected; U Benzodiazapine Screen Not Detected; U Buprenorphine Screen Not Detected; U Cannabinoids Screen DETECTED; U Cocaine Screen Not Detected; U Methadone Screen Not Detected; U Methamphetamine Screen Not Detected; U Opiates Screen Not Detected; U Oxycodone Screen Not Detected; U Phencyclidine Screen Not Detected; U Propoxyphene Screen Not Detected
== END 2019-06-20 06:45 | disposition home or self-care (01) ==
LOC: ER 00:24
PROVIDERS: Emergency Medicine
DX: G43.A0 Cyclical vomiting, in migraine, not intractable (principal); E10.65 Type 1 diabetes mellitus with hyperglycemia; F17.210 Nicotine dependence, cigarettes, uncomplicated; Z88.1 Allergy status to other antibiotic agents; Z88.8 Allergy status to other drugs, medicaments and biological substances; Z79.899 Other long term (current) drug therapy
CPT/HCPCS: 36415; 80053; 81001; 82010; 82803; 83690; 83735; 85025; 96361; 96374; 96375; 96376; 99283-25; G0480; J1200; J1630; J2765; J7030

== ENCOUNTER 2019-07-26 23:14 | Emergency (ER) | payer BC, OTHER ==
[~2019-07-26] VITALS: Ht 175.3 cm; Wt 77.1 kg
[2019-07-27 00:08] LABS: BASOPHILS ABSOLUTE AUTO 0.02 K/mm3 (0.00-0.23); BASOPHILS PERCENT AUTO 0 % (0-2); EOSINOPHILS PERCENT AUTO 0 % (0-6); Hematocrit 41.2 % (37.0-53.0); IMMATURE GRAN ABSOLUTE AUTO 0.05 K/mm3 (0.00-0.10); IMMATURE GRAN PERCENT AUTO 0 % (0-1); LYMPHOCYTES ABSOLUTE AUTO 0.77 K/mm3 (0.84-5.20); LYMPHOCYTES PERCENT AUTO 5 % (21-46); MONOCYTES ABSOLUTE AUTO 0.32 K/mm3 (0.16-1.47); MONOCYTES PERCENT AUTO 2 % (4-13); Mean Corpuscular HGB 29.2 pg (26.0-34.0); Mean Corpuscular Volume 86 fL (80-100); Mean Platelet Volume 10.2 fL (9.1-12.4); NEUTROPHILS ABSOLUTE AUTO 13.23 K/mm3 (1.96-9.15); NEUTROPHILS PERCENT AUTO 92 % (41-73); Platelet Count 277 K/mm3 (150-400); RDW Coefficient Variation 12.1 % (11.7-14.2); White Blood Cell Count 14.39 K/mm3 (4.00-11.30)
[2019-07-27 00:34] LABS: Alanine Aminotransfer (ALT/SGP 25 U/L (12-78); Albumin, Blood 4.2 g/dL (3.4-5.0); Albumin/Globulin Ratio 1.1 (0.8-1.8); Alk Phos 82 U/L (50-136); Anion Gap 11 mmol/L (6-16); Aspartate Aminotrans (AST/SGOT 11 U/L (12-37); Bilirubin, Total 0.9 mg/dL (0.1-1.0); Blood Urea Nitrogen 14 mg/dL (8-24); Bun/Creatinine Ratio 26.1 (12.0-20.0); CO2, Blood 26 mmol/L (21-32); Calcium, Blood 9.4 mg/dL (8.5-10.1); Chloride, Blood 101 mmol/L (98-108); Creatinine, Blood 0.54 mg/dL (0.60-1.20); Globulin, Blood 3.7 g/dL (2.2-4.0); Glomerular Filtration Rate >60 (60-); Glucose, Blood 295 mg/dL (70-99); Potassium, Blood 3.7 mmol/L (3.5-5.5); Sodium, Blood 138 mmol/L (136-145); Total Protein, Blood 7.9 g/dL (6.4-8.2)
[2019-07-27] MEDS ORDERED: ARTHRITIS PAIN57 GM TOP (01:02)
[2019-07-27] MEDS ORDERED: METO10 PO (01:02)
[2019-07-28] MEDS ORDERED: PROM25 PO (03:11)
== END 2019-07-27 01:44 | disposition home or self-care (01) ==
LOC: ER 23:14
PROVIDERS: Emergency Medicine
DX: E10.65 Type 1 diabetes mellitus with hyperglycemia (principal); G43.A0 Cyclical vomiting, in migraine, not intractable; F17.210 Nicotine dependence, cigarettes, uncomplicated; Z88.0 Allergy status to penicillin; Z88.8 Allergy status to other drugs, medicaments and biological substances
CPT/HCPCS: 36415; 80053; 82010; 82947; 85025; 93005; 93010; 96361; 96374; 96375; 99284-25; J1200; J1630; J1815; J2405; J7030

== ENCOUNTER 2019-07-27 23:35 | Emergency (ER) | payer BC, OTHER ==
[~2019-07-27] VITALS: Ht 175.3 cm; Wt 77.1 kg
[~2019-07-27 23:35] MED LIST changes: +ARTHRITIS PAIN57 GM TOP
[2019-07-28 01:10] LABS: BASOPHILS ABSOLUTE AUTO 0.04 K/mm3 (0.00-0.23); BASOPHILS PERCENT AUTO 0 % (0-2); EOSINOPHILS ABSOLUTE AUTO 0.01 K/mm3 (0.00-0.68); EOSINOPHILS PERCENT AUTO 0 % (0-6); Hematocrit 39.9 % (37.0-53.0); Hemoglobin 13.7 g/dL (13.5-17.5); IMMATURE GRAN ABSOLUTE AUTO 0.06 K/mm3 (0.00-0.10); IMMATURE GRAN PERCENT AUTO 0 % (0-1); LYMPHOCYTES ABSOLUTE AUTO 1.28 K/mm3 (0.84-5.20); LYMPHOCYTES PERCENT AUTO 9 % (21-46); MONOCYTES ABSOLUTE AUTO 0.63 K/mm3 (0.16-1.47); MONOCYTES PERCENT AUTO 4 % (4-13); Mean Corpuscular HGB 29.5 pg (26.0-34.0); Mean Corpuscular HGB Conc 34.3 g/dL (31.5-36.5); Mean Corpuscular Volume 86 fL (80-100); NEUTROPHILS ABSOLUTE AUTO 12.71 K/mm3 (1.96-9.15); NEUTROPHILS PERCENT AUTO 86 % (41-73); Platelet Count 272 K/mm3 (150-400); RDW Coefficient Variation 12.1 % (11.7-14.2); Red Blood Cell Count 4.65 M/mm3 (4.30-5.90); White Blood Cell Count 14.73 K/mm3 (4.00-11.30)
[2019-07-28 01:33] LABS: Alanine Aminotransfer (ALT/SGP 28 U/L (12-78); Albumin, Blood 4.4 g/dL (3.4-5.0); Albumin/Globulin Ratio 1.2 (0.8-1.8); Alk Phos 85 U/L (50-136); Anion Gap 8 mmol/L (6-16); Aspartate Aminotrans (AST/SGOT 25 U/L (12-37); Blood Urea Nitrogen 12 mg/dL (8-24); Bun/Creatinine Ratio 20.2 (12.0-20.0); CO2, Blood 29 mmol/L (21-32); Calcium, Blood 9.5 mg/dL (8.5-10.1); Chloride, Blood 99 mmol/L (98-108); Creatinine, Blood 0.59 mg/dL (0.60-1.20); Globulin, Blood 3.8 g/dL (2.2-4.0); Glomerular Filtration Rate >60 (60-); Glucose, Blood 88 mg/dL (70-99); Potassium, Blood 3.8 mmol/L (3.5-5.5); Sodium, Blood 136 mmol/L (136-145); Total Protein, Blood 8.2 g/dL (6.4-8.2)
[2019-07-28 01:39] LABS: Beta-hydroxybutyrate 8.5 mg/dL (0.2-2.8)
[2019-07-28] MEDS ORDERED: PROM25 PO (03:11)
== END 2019-07-28 03:18 | disposition home or self-care (01) ==
LOC: ER 23:35
PROVIDERS: Emergency Medicine
DX: R11.2 Nausea with vomiting, unspecified (principal); E86.0 Dehydration; R10.9 Unspecified abdominal pain; E10.9 Type 1 diabetes mellitus without complications; F32.9 Major depressive disorder, single episode, unspecified; F41.9 Anxiety disorder, unspecified; F17.210 Nicotine dependence, cigarettes, uncomplicated; Z88.0 Allergy status to penicillin; Z88.6 Allergy status to analgesic agent; Z79.899 Other long term (current) drug therapy
CPT/HCPCS: 36415; 80053; 82010; 82800; 83690; 85025; 96361; 96374; 96375; 96376; 99283; J1630; J2550; J7120

== ENCOUNTER → 2019-07-29 | Outpatient (CLI) | payer BC, OTHER ==
[2019-07-29 13:56] LABS: Alanine Aminotransfer (ALT/SGP 22 U/L (12-78); Albumin, Blood 4.2 g/dL (3.4-5.0); Albumin/Globulin Ratio 1.2 (0.8-1.8); Alk Phos 81 U/L (40-126); Anion Gap 10 mmol/L (6-16); Aspartate Aminotrans (AST/SGOT 13 U/L (12-37); Bilirubin, Total 0.9 mg/dL (0.1-1.0); Blood Urea Nitrogen 8 mg/dL (8-24); Bun/Creatinine Ratio 9.9 (12.0-20.0); CO2, Blood 29 mmol/L (21-32); Chloride, Blood 97 mmol/L (98-108); Creatinine, Blood 0.81 mg/dL (0.60-1.20); Globulin, Blood 3.6 g/dL (2.2-4.0); Glomerular Filtration Rate >60 (60-); Glucose, Blood 254 mg/dL (70-99); Potassium, Blood 3.7 mmol/L (3.5-5.5); Sodium, Blood 136 mmol/L (136-145); Total Protein, Blood 7.8 g/dL (6.4-8.2)
== END | disposition home or self-care (01) ==
LOC: LAB EV 13:32 → LAB SHORT 13:32
PROVIDERS: Family Medicine
DX: R11.2 Nausea with vomiting, unspecified (principal)
CPT/HCPCS: 80053; 83690

== ENCOUNTER → 2019-08-03 | Outpatient (CLI) | payer BC, OTHER | END | disposition home or self-care (01) | LOC: LAB SHORT 15:33 → LAB EV 15:33 | DX: R10.13 Epigastric pain (principal) | CPT/HCPCS: 87338 ==

== ENCOUNTER 2020-04-19 18:15 | Emergency (ER) | payer OTHER ==
[~2020-04-19] VITALS: Ht 175.3 cm; Wt 86.2 kg
[2020-04-19 18:51] LABS: BASOPHILS ABSOLUTE AUTO 0.03 K/mm3 (0.00-0.23); BASOPHILS PERCENT AUTO 0 % (0-2); EOSINOPHILS PERCENT AUTO 0 % (0-6); Hematocrit 43.9 % (37.0-53.0); Hemoglobin 14.8 g/dL (13.5-17.5); IMMATURE GRAN ABSOLUTE AUTO 0.07 K/mm3 (0.00-0.10); IMMATURE GRAN PERCENT AUTO 0 % (0-1); LYMPHOCYTES ABSOLUTE AUTO 0.79 K/mm3 (0.84-5.20); LYMPHOCYTES PERCENT AUTO 4 % (21-46); MONOCYTES ABSOLUTE AUTO 0.29 K/mm3 (0.16-1.47); MONOCYTES PERCENT AUTO 2 % (4-13); Mean Corpuscular HGB 28.6 pg (26.0-34.0); Mean Corpuscular HGB Conc 33.7 g/dL (31.5-36.5); Mean Corpuscular Volume 85 fL (80-100); Mean Platelet Volume 10.1 fL (9.1-12.4); NEUTROPHILS ABSOLUTE AUTO 17.16 K/mm3 (1.96-9.15); NEUTROPHILS PERCENT AUTO 94 % (41-73); Platelet Count 322 K/mm3 (150-400); RDW Coefficient Variation 11.9 % (11.7-14.2); RDW Standard Deviation 36.5 fL (35.1-46.3); Red Blood Cell Count 5.18 M/mm3 (4.30-5.90); White Blood Cell Count 18.34 K/mm3 (4.00-11.30)
[2020-04-19 19:17] LABS: Base Excess Venous -2.3 mmol/L; Bicarbonate Venous 24.2 mmol/L (24.0-30.0); PCO2 Venous 22.8 mmHg (38-42); PO2 Venous 58.6 mmHg (38-42)
[2020-04-19 19:18] LABS: pH Blood Venous 7.55 (7.34-7.37)
[2020-04-19 19:24] LABS: Alanine Aminotransfer (ALT/SGP 29 U/L (12-78); Albumin, Blood 4.8 g/dL (3.4-5.0); Albumin/Globulin Ratio 1.3 (0.8-1.8); Alk Phos 81 U/L (50-136); Anion Gap 16 mmol/L (6-16); Aspartate Aminotrans (AST/SGOT 16 U/L (12-37); Bilirubin, Total 1.5 mg/dL (0.1-1.0); Blood Urea Nitrogen 18 mg/dL (8-24); Bun/Creatinine Ratio 25.8 (12.0-20.0); CO2, Blood 20 mmol/L (21-32); Calcium, Blood 9.8 mg/dL (8.5-10.1); Chloride, Blood 100 mmol/L (98-108); Globulin, Blood 3.7 g/dL (2.2-4.0); Glomerular Filtration Rate >60 (60-); Glucose, Blood 289 mg/dL (70-99); Potassium, Blood 3.8 mmol/L (3.5-5.5); Sodium, Blood 136 mmol/L (136-145); Total Protein, Blood 8.5 g/dL (6.4-8.2)
[2020-04-19 20:40] LABS: Source, Urine Clean Catch
[2020-04-19 20:45] LABS: Bilirubin, Urine Neg (Neg); Blood, Urine 1+ (Neg); Glucose Qualitative, Urine 4+ (Neg); Ketones, Urine 4+ (Neg); Leukocyte Esterase, Urine Neg (Neg); Nitrite, Urine Neg (Neg); Protein, Urine 1+ (Neg); Urobilinogen, Urine NORM (Normal)
[2020-04-19 20:50] LABS: Appearance, Urine Clear (Clear); Color, Urine Yellow (P-Yellow)
[2020-04-19 20:52] LABS: Bacteria Few /hpf; Red Blood Cells, Urine 0-2 /hpf (0-2); Squamous Epithelial Cells Rare /hpf (Few)
[2020-04-19] MEDS ORDERED: PROM25 PO (22:35)
[2020-04-19 22:55] LABS: Calcium, Ionized (POC) 1.14 mmol/L (1.10-1.46); Chloride (POC) 101 mmol/L (98-108); Creatinine (POC) 0.6 mg/dL (0.8-1.3); Glucose (ISTAT POC) 300 mg/dL (70-99); Hemoglobin (POC) 13.3 g/dL (13.5-17.5); Potassium (POC) 4.1 mmol/L (3.5-5.5); Sodium (POC) 136 mmol/L (135-148); Total CO2 (POC) 23 mmol/L (21-32)
[2020-04-22] MEDS ORDERED: COMPAZINE10 MG PO (17:44)
== END 2020-04-19 23:56 | disposition home or self-care (01) ==
LOC: ER 18:15
PROVIDERS: Emergency Medicine; Physician Assistant
DX: E10.9 Type 1 diabetes mellitus without complications (principal); E86.0 Dehydration; R10.13 Epigastric pain; R11.2 Nausea with vomiting, unspecified; Z88.0 Allergy status to penicillin; Z88.6 Allergy status to analgesic agent; F17.210 Nicotine dependence, cigarettes, uncomplicated
CPT/HCPCS: 36415; 71046; 80047; 80053; 81001; 82803; 82947; 83690; 85014; 85025; 87086; 93005; 93010; 96361; 96374; 96375; 99285-25; J1200; J1630; J1815; J2405; J7030; J7120

== ENCOUNTER 2020-04-26 19:26 | Observation (INO) | payer BC, OTHER ==
[~2020-04-26] VITALS: Ht 177.8 cm; Wt 82.0 kg
[~2020-04-26 19:26] MED LIST changes: +BASAGLAR K100 UNIT/1 SC
[2020-04-26] MEDS ORDERED: NOVOLOG FL100 UNIT/3 SC (19:43)
--- NOTE | 2020-04-27 04:08 | NUR ---
SHIFT SUMMARY- PT. NEW ADMISSION FROM THE ED. A&OX4, TRANSFERRED INDEPENDENTLY INTO BED. NO C/O N/V, PAIN, OR DISCOMFORT. PT. ASLEEP DURING MOST OF THE NIGHT, NO APPARENT DISTRESS NOTED. IV FLUIDS RUNNING. CALL LIGHT WITHIN REACH AND SIDE RAILS UP X2. WILL CONTINUE TO MONITOR.
[2020-04-27 05:36] LABS: BASOPHILS ABSOLUTE AUTO 0.05 K/mm3 (0.00-0.23); BASOPHILS PERCENT AUTO 0 % (0-2); EOSINOPHILS ABSOLUTE AUTO 0.27 K/mm3 (0.00-0.68); EOSINOPHILS PERCENT AUTO 2 % (0-6); Hematocrit 42.2 % (37.0-53.0); Hemoglobin 14.4 g/dL (13.5-17.5); IMMATURE GRAN ABSOLUTE AUTO 0.06 K/mm3 (0.00-0.10); IMMATURE GRAN PERCENT AUTO 0 % (0-1); LYMPHOCYTES ABSOLUTE AUTO 4.37 K/mm3 (0.84-5.20); LYMPHOCYTES PERCENT AUTO 32 % (21-46); MONOCYTES ABSOLUTE AUTO 1.39 K/mm3 (0.16-1.47); MONOCYTES PERCENT AUTO 10 % (4-13); Mean Corpuscular HGB 28.9 pg (26.0-34.0); Mean Corpuscular HGB Conc 34.1 g/dL (31.5-36.5); Mean Corpuscular Volume 85 fL (80-100); Mean Platelet Volume 10.2 fL (9.1-12.4); NEUTROPHILS PERCENT AUTO 55 % (41-73); Platelet Count 313 K/mm3 (150-400); RDW Coefficient Variation 11.7 % (11.7-14.2); RDW Standard Deviation 35.5 fL (35.1-46.3); Red Blood Cell Count 4.99 M/mm3 (4.30-5.90); White Blood Cell Count 13.54 K/mm3 (4.00-11.30)
[2020-04-27 06:14] LABS: Alanine Aminotransfer (ALT/SGP 155 U/L (12-78); Albumin, Blood 3.1 g/dL (3.4-5.0); Albumin/Globulin Ratio 1.1 (0.8-1.8); Alk Phos 65 U/L (50-136); Anion Gap 6 mmol/L (6-16); Aspartate Aminotrans (AST/SGOT 76 U/L (12-37); Bilirubin, Total 2.2 mg/dL (0.1-1.0); Blood Urea Nitrogen 16 mg/dL (8-24); Bun/Creatinine Ratio 18.1 (12.0-20.0); CO2, Blood 36 mmol/L (21-32); Calcium, Blood 7.9 mg/dL (8.5-10.1); Chloride, Blood 93 mmol/L (98-108); Creatinine, Blood 0.88 mg/dL (0.60-1.20); Globulin, Blood 2.8 g/dL (2.2-4.0); Glomerular Filtration Rate >60 (60-); Glucose, Blood 41 mg/dL (70-99); Potassium, Blood 2.7 mmol/L (3.5-5.5); Sodium, Blood 135 mmol/L (136-145); Total Protein, Blood 5.9 g/dL (6.4-8.2)
--- NOTE | 2020-04-27 06:47 | NUR ---
RECEIVED CALL FROM LAB WITH GLUCOSE RESULT OF 41. PT. ASYMPTOMATIC. A&O SITTING UP IN BED. PT. GIVEN OJ AND A SANDWICH TO EAT. NOTIFIED DR. BETHEA, GIVEN ORDER FOR 1 AMP D50. THIS NURSE HELD MED DUE TO REPEAT BS OF 73. PT. IS AWAKE CONTS TO BE ASYMPTOMATIC SITTING UP IN BED, NO APPARENT DISTRESS NOTED. WILL CONT TO MONITOR.
[2020-04-27 08:59] LABS: Source, Urine Clean Catch
[2020-04-27 09:10] LABS: Bilirubin, Urine Neg (Neg); Blood, Urine Neg (Neg); Glucose Qualitative, Urine Neg (Neg); Ketones, Urine Neg (Neg); Leukocyte Esterase, Urine Neg (Neg); Nitrite, Urine Neg (Neg); Protein, Urine Neg (Neg); Specific Gravity, Urine 1.005 (1.003-1.022); Urobilinogen, Urine 1+ (Normal)
[2020-04-27 09:27] LABS: Appearance, Urine Clear (Clear); Color, Urine Yellow (P-Yellow)
[2020-04-27 09:34] LABS: U Amphetamine Screen Not Detected; U Barbituate Screen Not Detected; U Benzodiazapine Screen Not Detected; U Buprenorphine Screen Not Detected; U Cannabinoids Screen DETECTED; U Cocaine Screen Not Detected; U Methadone Screen Not Detected; U Methamphetamine Screen Not Detected; U Opiates Screen Not Detected; U Oxycodone Screen Not Detected; U Phencyclidine Screen Not Detected; U Propoxyphene Screen Not Detected
[2020-04-27 13:45] LABS: Anion Gap 4 mmol/L (6-16); Blood Urea Nitrogen 14 mg/dL (8-24); CO2, Blood 37 mmol/L (21-32); Calcium, Blood 8.2 mg/dL (8.5-10.1); Chloride, Blood 94 mmol/L (98-108); Creatinine, Blood 0.94 mg/dL (0.60-1.20); Glomerular Filtration Rate >60 (60-); Glucose, Blood 141 mg/dL (70-99); Potassium, Blood 3.3 mmol/L (3.5-5.5); Sodium, Blood 135 mmol/L (136-145)
--- NOTE | 2020-04-27 17:54 | NUR ---
SUMMARY PT SITTING UP IN BED EATING DINNER, PT HAS SLEPT OFF AND ON T/O THE DAY, PT WAS ABLE TO GET UP AND TAKE A SHOWER, PT REPORTED EMESIS AT THE BEGINNING OF THE SHIFT, BUT NONE SINCE THEN, VSS, NO ACUTE CHANGES, WILL CONT TO MONITOR
--- NOTE | 2020-04-28 04:18 | NUR ---
SHIFT SUMMARY ADMITTED FOR TRANSAMINITIS. FULL CODE. PLAN IS FOR DC TODAY IF LABS SHOW IMPROVEMENT. HE CAME IN WITH N/V (HX OF CANNABIS HYPEREMESIS SYNDROME). HE DOES SELF MEDICATE WITH MARIJUANA DAILY TO MANAGE HIS MENTAL HEALTH ISSUES. HE WAS FOUND TO BE SEVERELY DEHYDRATED ON ADMIT. HE IS A DM1, ADA DIET, ACHS CHEMSTICKS. REPORTING HE FEELS MUCH IMPROVED, HE DID EAT DINNER AND A SNACK THIS PAST DINNERTIME. IV POTASSIUM GIVEN THIS SHIFT ORDERED.
[2020-04-28 05:19] LABS: BASOPHILS ABSOLUTE AUTO 0.06 K/mm3 (0.00-0.23); BASOPHILS PERCENT AUTO 1 % (0-2); EOSINOPHILS ABSOLUTE AUTO 0.27 K/mm3 (0.00-0.68); EOSINOPHILS PERCENT AUTO 3 % (0-6); Hemoglobin 12.8 g/dL (13.5-17.5); IMMATURE GRAN ABSOLUTE AUTO 0.03 K/mm3 (0.00-0.10); IMMATURE GRAN PERCENT AUTO 0 % (0-1); LYMPHOCYTES ABSOLUTE AUTO 3.38 K/mm3 (0.84-5.20); LYMPHOCYTES PERCENT AUTO 34 % (21-46); MONOCYTES ABSOLUTE AUTO 0.86 K/mm3 (0.16-1.47); MONOCYTES PERCENT AUTO 9 % (4-13); Mean Corpuscular HGB 28.8 pg (26.0-34.0); Mean Corpuscular HGB Conc 32.8 g/dL (31.5-36.5); Mean Corpuscular Volume 88 fL (80-100); Mean Platelet Volume 10.7 fL (9.1-12.4); NEUTROPHILS ABSOLUTE AUTO 5.26 K/mm3 (1.96-9.15); NEUTROPHILS PERCENT AUTO 53 % (41-73); Platelet Count 263 K/mm3 (150-400); RDW Coefficient Variation 11.5 % (11.7-14.2); RDW Standard Deviation 36.9 fL (35.1-46.3); Red Blood Cell Count 4.44 M/mm3 (4.30-5.90); White Blood Cell Count 9.86 K/mm3 (4.00-11.30)
[2020-04-28 05:44] LABS: Alanine Aminotransfer (ALT/SGP 123 U/L (12-78); Albumin, Blood 2.9 g/dL (3.4-5.0); Alk Phos 59 U/L (50-136); Anion Gap 2 mmol/L (6-16); Aspartate Aminotrans (AST/SGOT 41 U/L (12-37); Bilirubin, Total 1.1 mg/dL (0.1-1.0); Blood Urea Nitrogen 13 mg/dL (8-24); Bun/Creatinine Ratio 15.5 (12.0-20.0); CO2, Blood 33 mmol/L (21-32); Calcium, Blood 8.1 mg/dL (8.5-10.1); Chloride, Blood 102 mmol/L (98-108); Creatinine, Blood 0.84 mg/dL (0.60-1.20); Globulin, Blood 2.8 g/dL (2.2-4.0); Glomerular Filtration Rate >60 (60-); Glucose, Blood 209 mg/dL (70-99); Potassium, Blood 5.1 mmol/L (3.5-5.5); Sodium, Blood 137 mmol/L (136-145); Total Protein, Blood 5.7 g/dL (6.4-8.2)
[2020-04-28] MEDS ORDERED: ACET325 PO (10:47)
[2020-04-28] MEDS ORDERED: OLAN5 PO (10:47)
[2020-04-28] MEDS ORDERED: PROM25 PO (10:48)
[2020-04-28] MEDS ORDERED: GLUCAGON EMERGEN1 MG IJ (10:48)
--- NOTE | 2020-04-28 11:08 | NUR ---
SUMMARY/DISCHARGE PT DISCHARGED TO HOME, PT VERBALIZED UNDERSTANDING OF DISCHARGE INSTRUCTIONS REGARDING MEDS AND FOLLOW UP, PT DECLINED A WHEELCHAIR AND WAS ABLE TO AMBULATE SAFELY TO THE ELEVATOR
== END 2020-04-28 10:56 | disposition home or self-care (01) ==
LOC: ER 19:26 → MEDS 21:48
PROVIDERS: Family Medicine; Nurse Practitioner Acute Care; ADMIT Internal Medicine
DX: R11.2 Nausea with vomiting, unspecified (principal); F12.99 Cannabis use, unspecified with unspecified cannabis-induced disorder; E10.65 Type 1 diabetes mellitus with hyperglycemia; F31.9 Bipolar disorder, unspecified; F17.210 Nicotine dependence, cigarettes, uncomplicated; R74.0 Nonspecific elevation of levels of transaminase and lactic acid dehydrogenase [LDH]; R65.10 Systemic inflammatory response syndrome (SIRS) of non-infectious origin without acute organ dysfunction; E86.0 Dehydration; Z88.0 Allergy status to penicillin; Z88.6 Allergy status to analgesic agent; Z79.899 Other long term (current) drug therapy
CPT/HCPCS: 36415; 71045; 76705; 80048; 80053; 81003; 82947; 83735; 85025; 96360; 96361; 96372; 96374; 99285-25; A9270-GY; G0378; G0480; J1650; J1815; J2765; J3480; J7030; J7120

== ENCOUNTER 2020-08-15 11:14 | Inpatient (IN) | payer OTHER ==
[~2020-08-15] VITALS: Ht 172.7 cm; Wt 79.5 kg
[~2020-08-15 11:14] MED LIST changes: +ACET325 PO; +GLUCAGON EMERGEN1 MG IJ; +NOVOLOG FL100 UNIT/3 SC
[2020-08-15 12:00] LABS: Calcium, Ionized (POC) 0.94 mmol/L (1.10-1.46); Chloride (POC) 88 mmol/L (98-108); Glucose (ISTAT POC) 203 mg/dL (70-99); Hemoglobin (POC) 18.7 g/dL (13.5-17.5); Potassium (POC) 3.8 mmol/L (3.5-5.5); Sodium (POC) 131 mmol/L (135-148); Total CO2 (POC) 30 mmol/L (21-32)
[2020-08-15 12:15] LABS: BASOPHILS ABSOLUTE AUTO 0.04 K/mm3 (0.00-0.23); BASOPHILS PERCENT AUTO 0 % (0-2); Base Excess Venous 11.5 mmol/L; Bicarbonate Venous 34.9 mmol/L (24.0-30.0); EOSINOPHILS ABSOLUTE AUTO 0.01 K/mm3 (0.00-0.68); EOSINOPHILS PERCENT AUTO 0 % (0-6); Hematocrit 50.6 % (37.0-53.0); Hemoglobin 17.8 g/dL (13.5-17.5); IMMATURE GRAN ABSOLUTE AUTO 0.13 K/mm3 (0.00-0.10); IMMATURE GRAN PERCENT AUTO 1 % (0-1); LYMPHOCYTES ABSOLUTE AUTO 1.83 K/mm3 (0.84-5.20); LYMPHOCYTES PERCENT AUTO 7 % (21-46); MONOCYTES ABSOLUTE AUTO 1.72 K/mm3 (0.16-1.47); MONOCYTES PERCENT AUTO 7 % (4-13); Mean Corpuscular HGB 28.5 pg (26.0-34.0); Mean Corpuscular HGB Conc 35.2 g/dL (31.5-36.5); Mean Corpuscular Volume 81 fL (80-100); Mean Platelet Volume 9.9 fL (9.1-12.4); NEUTROPHILS ABSOLUTE AUTO 21.31 K/mm3 (1.96-9.15); NEUTROPHILS PERCENT AUTO 85 % (41-73); PCO2 Venous 30.6 mmHg (38-42); PO2 Venous 38.1 mmHg (38-42); Platelet Count 428 K/mm3 (150-400); RDW Coefficient Variation 11.9 % (11.7-14.2); RDW Standard Deviation 34.1 fL (35.1-46.3); Red Blood Cell Count 6.25 M/mm3 (4.30-5.90); White Blood Cell Count 25.04 K/mm3 (4.00-11.30)
[2020-08-15 12:16] LABS: pH Blood Venous 7.64 (7.34-7.37)
[2020-08-15 12:36] LABS: Alanine Aminotransfer (ALT/SGP 34 U/L (12-78); Albumin, Blood 5.2 g/dL (3.4-5.0); Albumin/Globulin Ratio 1.2 (0.8-1.8); Alk Phos 102 U/L (50-136); Anion Gap 16 mmol/L (6-16); Aspartate Aminotrans (AST/SGOT 18 U/L (12-37); Bilirubin, Total 1.4 mg/dL (0.1-1.0); Blood Urea Nitrogen 31 mg/dL (8-24); Bun/Creatinine Ratio 30.1 (12.0-20.0); CO2, Blood 29 mmol/L (21-32); Calcium, Blood 10.8 mg/dL (8.5-10.1); Chloride, Blood 87 mmol/L (98-108); Creatinine, Blood 1.03 mg/dL (0.60-1.20); Globulin, Blood 4.5 g/dL (2.2-4.0); Glomerular Filtration Rate >60 (60-); Glucose, Blood 194 mg/dL (70-99); Potassium, Blood 3.3 mmol/L (3.5-5.5); Sodium, Blood 132 mmol/L (136-145); Total Protein, Blood 9.7 g/dL (6.4-8.2)
[2020-08-15 12:42] LABS: Beta-hydroxybutyrate 28.9 mg/dL (0.2-2.8); Magnesium, Blood 2.2 mg/dL (1.6-2.4)
[2020-08-15 14:02] LABS: Source, Urine Clean Catch
[2020-08-15 14:07] LABS: Bilirubin, Urine Neg (Neg); Blood, Urine 1+ (Neg); Glucose Qualitative, Urine 1+ (Neg); Ketones, Urine 3+ (Neg); Leukocyte Esterase, Urine Neg (Neg); Nitrite, Urine Neg (Neg); Protein, Urine 2+ (Neg); Urobilinogen, Urine NORM (Normal)
[2020-08-15 14:16] LABS: Appearance, Urine Clear (Clear); Color, Urine Yellow (P-Yellow)
[2020-08-15 14:18] LABS: Bacteria Rare /hpf; Hyaline Casts Rare /lpf (0-2); Mucus Light (0-Heavy); Red Blood Cells, Urine Not Seen /hpf (0-2); Squamous Epithelial Cells Rare /hpf (Few); White Blood Cells, Urine 0-2 /hpf (0-5)
--- NOTE | 2020-08-15 18:06 | NUR ---
PT AOX4, BUT VERY WITHDRAWN AND DOES NOT WANT TO TALK. TREATED NAUSEA PER EMAR. PT VERY TIRED AND WANTING TO SLEEP. PT DOES NOT WANT TO TALK WITH NURSING STAFF AND JUST ROLLS OVER TO SLEEP. PT HAS CALL LIGHT WITHIN REACH INDEPENDENT IN ROOM WILL CONTINE TO MONITOR.
[2020-08-15 18:31] LABS: U Amphetamine Screen Not Detected; U Barbituate Screen Not Detected; U Benzodiazapine Screen Not Detected; U Buprenorphine Screen Not Detected; U Cannabinoids Screen DETECTED; U Cocaine Screen Not Detected; U Methadone Screen Not Detected; U Methamphetamine Screen Not Detected; U Opiates Screen Not Detected; U Oxycodone Screen Not Detected; U Phencyclidine Screen Not Detected; U Propoxyphene Screen Not Detected
--- NOTE | 2020-08-16 01:34 | NUR ---
08/16/20 0105 PT C/O NAUSEA AND VOMITING. HAD EMESIS IN SEVERAL EMESIS BAGS WITH RESIDUAL GATORADE,SODA AND GASTRIC CONTENTS. STATES HE HAS HAD SOME VOMITING "THE PAST COUPLE HOURS". INFORMED PT TO NOTIFY RN SO SHE CAN GIVE HIM MEDS TO CONTROL N & V. STATES HE WILL. ALSO HE REQUESTED TO SHOWER NOW HE FEELS HE WILL FEEL BETTER AFTERWARDS. IV FLUIDS STOPPED AND SITE COVERED FOR SHOWER.
[2020-08-16 05:27] LABS: Hematocrit 38.3 % (37.0-53.0); Hemoglobin 12.9 g/dL (13.5-17.5); Mean Corpuscular HGB 28.5 pg (26.0-34.0); Mean Corpuscular HGB Conc 33.7 g/dL (31.5-36.5); Mean Corpuscular Volume 85 fL (80-100); Mean Platelet Volume 9.7 fL (9.1-12.4); Platelet Count 268 K/mm3 (150-400); RDW Coefficient Variation 11.8 % (11.7-14.2); RDW Standard Deviation 35.8 fL (35.1-46.3); Red Blood Cell Count 4.53 M/mm3 (4.30-5.90)
[2020-08-16 05:56] LABS: Anion Gap 9 mmol/L (6-16); Blood Urea Nitrogen 16 mg/dL (8-24); Bun/Creatinine Ratio 18.7 (12.0-20.0); CO2, Blood 28 mmol/L (21-32); Chloride, Blood 99 mmol/L (98-108); Creatinine, Blood 0.86 mg/dL (0.60-1.20); Glomerular Filtration Rate >60 (60-); Glucose, Blood 263 mg/dL (70-99); Potassium, Blood 3.6 mmol/L (3.5-5.5); Sodium, Blood 136 mmol/L (136-145)
[2020-08-16 05:59] LABS: Calcium, Blood 8.4 mg/dL (8.5-10.1)
--- NOTE | 2020-08-16 06:03 | NUR ---
08/16/20 0600 PT CONTINUES TO HAVE EPISODES OF N/V THROUGHOUT SHIFT. RN PAGED MD AND UPDATED CLINICAL NUTRITIONIST MD. NEW ANTI-EMETIC GIVEN. RN ENCOURAGED PT TO SLOW DOWN ON HIS INTAKE TO ALLOW STOMACH TO RECUPERATE. HE STATES, "I HAVE BEEN!" VITALS AND LABWORK STABLE.
--- NOTE | 2020-08-16 08:45 | NUR ---
PT SOME WHAT IRRITABLE UPON AWAKENING. DENIES PAIN. A/O X3. STATES NAUSEA PERSISTS, BUT NOT THROWING UP AT THIS TIME. H/R REG, NO MURMER NOTED. NO TELE. LUNGS CLEAR, RESP EASY, UNLABORED. ON R.A. BT X4 LAST BM 2-3 DAYS PER PT. BUT STATES THROWING UP ANYTHING HE EATS. VOIDS INDEPENDANT TO BATHROOM. BED IN LOW POSITION, CALL LITE IN REACH, CALLS APPROP
--- NOTE | 2020-08-16 18:29 | NUR ---
PT PLEASANT COOP TODAY. EMESIS HAS DECREASED MUCH. STATES ONLY 50CC THIS AFT. NO NEW CONCERNS. CONTINUES TO BE IND IN ROOM. BED IN LOW POSITION, CALL LITE IN REACH, CALLS APROP. BLOOD SUGARS WNL.
--- NOTE | 2020-08-16 20:16 | NUR ---
Reviewed discharge instructions wiht pt. Discussed increased risk of return of nausea wiht continued Cannabis uses. Pt states understanding and has a plan to reduce/quit use. He will continue his home insulin regimn and as phenergan if needed for nausea.
== END 2020-08-16 20:12 | disposition home or self-care (01) | DRG 641 ==
LOC: ER 11:14 → MEDS 11:15
PROVIDERS: Emergency Medicine; Nurse Practitioner Acute Care; ADMIT Internal Medicine
DX: E86.0 Dehydration (principal); R65.10 Systemic inflammatory response syndrome (SIRS) of non-infectious origin without acute organ dysfunction; E87.1 Hypo-osmolality and hyponatremia; E87.6 Hypokalemia; E10.69 Type 1 diabetes mellitus with other specified complication; E87.3 Alkalosis; E83.52 Hypercalcemia; F31.9 Bipolar disorder, unspecified; F17.210 Nicotine dependence, cigarettes, uncomplicated; Z86.14 Personal history of Methicillin resistant Staphylococcus aureus infection
CPT/HCPCS: 36415; 71045; 80047; 80048; 80053; 81001; 82010; 82803; 82947; 83735; 85014; 85025; 85027; 96361; 96374; 96375; 96376; 99284-25; A9270; A9270-GY; J0780; J1200; J1650; J2405; J2550; J2765; J3480; J7030

== ENCOUNTER 2021-01-04 10:00 | Emergency (ER) | payer OTHER ==
[~2021-01-04] VITALS: Ht 175.3 cm; Wt 90.7 kg
[2021-01-04 11:09] LABS: BASOPHILS ABSOLUTE AUTO 0.03 K/mm3 (0.00-0.23); BASOPHILS PERCENT AUTO 0 % (0-2); EOSINOPHILS ABSOLUTE AUTO 0.21 K/mm3 (0.00-0.68); EOSINOPHILS PERCENT AUTO 3 % (0-6); Hematocrit 46.1 % (37.0-53.0); Hemoglobin 15.4 g/dL (13.5-17.5); IMMATURE GRAN ABSOLUTE AUTO 0.03 K/mm3 (0.00-0.10); IMMATURE GRAN PERCENT AUTO 0 % (0-1); LYMPHOCYTES ABSOLUTE AUTO 1.74 K/mm3 (0.84-5.20); LYMPHOCYTES PERCENT AUTO 22 % (21-46); MONOCYTES ABSOLUTE AUTO 0.42 K/mm3 (0.16-1.47); MONOCYTES PERCENT AUTO 5 % (4-13); Mean Corpuscular HGB 28.4 pg (26.0-34.0); Mean Corpuscular HGB Conc 33.4 g/dL (31.5-36.5); Mean Corpuscular Volume 85 fL (80-100); Mean Platelet Volume 10.1 fL (9.1-12.4); NEUTROPHILS ABSOLUTE AUTO 5.33 K/mm3 (1.96-9.15); NEUTROPHILS PERCENT AUTO 69 % (41-73); Platelet Count 245 K/mm3 (150-400); RDW Coefficient Variation 12.2 % (11.7-14.2); RDW Standard Deviation 37.5 fL (35.1-46.3); Red Blood Cell Count 5.42 M/mm3 (4.30-5.90); White Blood Cell Count 7.76 K/mm3 (4.00-11.30)
[2021-01-04 11:22] LABS: Alanine Aminotransfer (ALT/SGP 20 U/L (12-78); Albumin, Blood 3.9 g/dL (3.4-5.0); Albumin/Globulin Ratio 1.1 (0.8-1.8); Alk Phos 59 U/L (50-136); Anion Gap 6 mmol/L (6-16); Aspartate Aminotrans (AST/SGOT 9 U/L (12-37); Bilirubin, Total 0.6 mg/dL (0.1-1.0); Blood Urea Nitrogen 11 mg/dL (8-24); Bun/Creatinine Ratio 15.9 (12.0-20.0); CO2, Blood 28 mmol/L (21-32); Chloride, Blood 109 mmol/L (98-108); Creatinine, Blood 0.69 mg/dL (0.60-1.20); Globulin, Blood 3.5 g/dL (2.2-4.0); Glomerular Filtration Rate >60 (60-); Glucose, Blood 92 mg/dL (70-99); Potassium, Blood 4.3 mmol/L (3.5-5.5); Sodium, Blood 143 mmol/L (136-145); Total Protein, Blood 7.4 g/dL (6.4-8.2)
[2021-01-04] MEDS ORDERED: PROM25 PO (11:48)
== END 2021-01-04 12:03 | disposition home or self-care (01) ==
LOC: ER 10:00
PROVIDERS: Emergency Medicine
DX: E10.9 Type 1 diabetes mellitus without complications (principal); R11.2 Nausea with vomiting, unspecified; Z88.0 Allergy status to penicillin; Z88.6 Allergy status to analgesic agent
CPT/HCPCS: 36415; 80053; 82947; 85025; 99283

== ENCOUNTER 2021-05-11 23:04 | Emergency (ER) | payer OTHER ==
[~2021-05-11] VITALS: Ht 175.3 cm; Wt 86.2 kg
[2021-05-11 23:41] LABS: BASOPHILS ABSOLUTE AUTO 0.05 K/mm3 (0.00-0.23); BASOPHILS PERCENT AUTO 1 % (0-2); EOSINOPHILS ABSOLUTE AUTO 0.28 K/mm3 (0.00-0.68); EOSINOPHILS PERCENT AUTO 3 % (0-6); Hematocrit 41.7 % (37.0-53.0); Hemoglobin 14.1 g/dL (13.5-17.5); IMMATURE GRAN ABSOLUTE AUTO 0.02 K/mm3 (0.00-0.10); IMMATURE GRAN PERCENT AUTO 0 % (0-1); LYMPHOCYTES ABSOLUTE AUTO 2.08 K/mm3 (0.84-5.20); LYMPHOCYTES PERCENT AUTO 20 % (21-46); MONOCYTES PERCENT AUTO 6 % (4-13); Mean Corpuscular HGB 29.1 pg (26.0-34.0); Mean Corpuscular HGB Conc 33.8 g/dL (31.5-36.5); Mean Corpuscular Volume 86 fL (80-100); NEUTROPHILS ABSOLUTE AUTO 7.38 K/mm3 (1.96-9.15); NEUTROPHILS PERCENT AUTO 71 % (41-73); Platelet Count 291 K/mm3 (150-400); RDW Coefficient Variation 12.3 % (11.7-14.2); RDW Standard Deviation 38.5 fL (35.1-46.3); Red Blood Cell Count 4.85 M/mm3 (4.30-5.90); White Blood Cell Count 10.41 K/mm3 (4.00-11.30)
[2021-05-11 23:46] LABS: Source, Urine Clean Catch
[2021-05-11 23:50] LABS: Blood, Urine 1+ (Neg); Glucose Qualitative, Urine 3+ (Neg); Ketones, Urine Neg (Neg); Leukocyte Esterase, Urine 1+ (Neg); Nitrite, Urine Pos (Neg); Protein, Urine 2+ (Neg); Specific Gravity, Urine 1.025 (1.003-1.022); Urobilinogen, Urine 2+ (Normal)
[2021-05-11 23:58] LABS: Appearance, Urine Clear (Clear); Bilirubin, Urine 2+ (Neg); Color, Urine Orange (P-Yellow)
[2021-05-11 23:59] LABS: Red Blood Cells, Urine 0-2 /hpf (0-2); Squamous Epithelial Cells Not Seen /hpf (Few); White Blood Cells, Urine 0-2 /hpf (0-5)
[2021-05-12] LABS: Bacteria Few /hpf
[2021-05-12 00:06] LABS: Alanine Aminotransfer (ALT/SGP 19 U/L (12-78); Albumin, Blood 3.9 g/dL (3.4-5.0); Albumin/Globulin Ratio 1.1 (0.8-1.8); Alk Phos 59 U/L (50-136); Anion Gap 5 mmol/L (6-16); Aspartate Aminotrans (AST/SGOT 8 U/L (12-37); Bilirubin, Total 0.3 mg/dL (0.1-1.0); Blood Urea Nitrogen 19 mg/dL (8-24); Bun/Creatinine Ratio 25.9 (12.0-20.0); CO2, Blood 28 mmol/L (21-32); CPK Creatine Kinase 170 U/L (39-308); Calcium, Blood 8.7 mg/dL (8.5-10.1); Chloride, Blood 108 mmol/L (98-108); Creatinine, Blood 0.73 mg/dL (0.60-1.20); Globulin, Blood 3.5 g/dL (2.2-4.0); Glomerular Filtration Rate >60 (60-); Glucose, Blood 131 mg/dL (70-99); Potassium, Blood 4.1 mmol/L (3.5-5.5); Sodium, Blood 141 mmol/L (136-145); Total Protein, Blood 7.4 g/dL (6.4-8.2)
[2021-05-12 00:11] LABS: Creatine Kinase MB <1.0 ng/mL (0.0-3.6); Creatine Kinase MB Index Unable to Calculate (0.0-4.0)
[2021-05-12 00:20] LABS: International Normalized Ratio 1.01; Prothrombin Time Results 10.9 Sec (9.7-11.5)
[2021-05-12] MEDS ORDERED: CEFD300 PO (02:46)
== END 2021-05-12 04:42 | disposition home or self-care (01) ==
LOC: ER 23:04
PROVIDERS: Emergency Medicine
DX: N39.0 Urinary tract infection, site not specified (principal); E10.9 Type 1 diabetes mellitus without complications; Z79.4 Long term (current) use of insulin; Z79.899 Other long term (current) drug therapy
CPT/HCPCS: 74176; 80053; 81001; 82550; 82553; 82947; 83605; 85025; 85610; 87086; 96374; 99283-25; J0696; J7030

== ENCOUNTER 2022-05-11 05:55 | Emergency (ER) | payer OTHER ==
[~2022-05-11] VITALS: Ht 177.8 cm; Wt 95.2 kg
[~2022-05-11 05:55] MED LIST changes: +CEFD300 PO
[2022-05-11 06:37] LABS: BASOPHILS ABSOLUTE AUTO 0.06 K/mm3 (0.00-0.23); BASOPHILS PERCENT AUTO 0 % (0-2); EOSINOPHILS ABSOLUTE AUTO 0.01 K/mm3 (0.00-0.68); EOSINOPHILS PERCENT AUTO 0 % (0-6); Hematocrit 51.3 % (37.0-53.0); Hemoglobin 18.4 g/dL (13.5-17.5); IMMATURE GRAN ABSOLUTE AUTO 0.08 K/mm3 (0.00-0.10); IMMATURE GRAN PERCENT AUTO 0 % (0-1); LYMPHOCYTES ABSOLUTE AUTO 1.67 K/mm3 (0.84-5.20); LYMPHOCYTES PERCENT AUTO 9 % (21-46); MONOCYTES ABSOLUTE AUTO 1.06 K/mm3 (0.16-1.47); MONOCYTES PERCENT AUTO 6 % (4-13); Mean Corpuscular HGB 29.3 pg (26.0-34.0); Mean Corpuscular HGB Conc 35.9 g/dL (31.5-36.5); Mean Corpuscular Volume 82 fL (80-100); Mean Platelet Volume 10.6 fL (9.1-12.4); NEUTROPHILS ABSOLUTE AUTO 15.63 K/mm3 (1.96-9.15); NEUTROPHILS PERCENT AUTO 85 % (41-73); Platelet Count 353 K/mm3 (150-400); RDW Coefficient Variation 11.6 % (11.7-14.2); RDW Standard Deviation 34.3 fL (35.1-46.3); Red Blood Cell Count 6.28 M/mm3 (4.30-5.90); White Blood Cell Count 18.51 K/mm3 (4.00-11.30)
[2022-05-11 06:49] LABS: Albumin, Blood 4.3 g/dL (3.4-5.0); Albumin/Globulin Ratio 1.2 (0.8-1.8); Bilirubin, Total 3.6 mg/dL (0.1-1.0); Bun/Creatinine Ratio 29.5 (12.0-20.0); Calcium, Blood 9.7 mg/dL (8.5-10.1); Creatinine, Blood 1.12 mg/dL (0.60-1.20); Globulin, Blood 3.7 g/dL (2.2-4.0); Magnesium, Blood 2.5 mg/dL (1.6-2.4); Potassium, Blood 3.2 mmol/L (3.5-5.5)
[2022-05-11 07:08] LABS: Influenza A, PCR NEGATIVE (NEGATIVE); Influenza B, PCR NEGATIVE (NEGATIVE); Resp Syncytial Virus, PCR NEGATIVE (NEGATIVE); SARS-Cov-2 (COVID-19) PCR, MMC NEGATIVE (NEGATIVE)
[2022-05-11 07:15] LABS: Base Excess Venous 16.5 mmol/L; Bicarbonate Venous 36.3 mmol/L (24.0-30.0); PCO2 Venous 55.2 mmHg (38-42); pH Blood Venous 7.47 (7.34-7.37)
[2022-05-11 10:38] LABS: Source, Urine Clean Catch
[2022-05-11 10:41] LABS: Appearance, Urine Clear (Clear); Bilirubin, Urine Neg (Neg); Blood, Urine 1+ (Neg); Color, Urine Amber (P-Yellow); Glucose Qualitative, Urine 4+ (Neg); Ketones, Urine 3+ (Neg); Leukocyte Esterase, Urine Neg (Neg); Nitrite, Urine Neg (Neg); Protein, Urine Neg (Neg); Urobilinogen, Urine 2+ (Normal)
[2022-05-11 11:01] LABS: Red Blood Cells, Urine 0-2 /hpf (0-2); White Blood Cells, Urine 0-2 /hpf (0-5)
[2022-05-11 11:02] LABS: Squamous Epithelial Cells Not Seen /hpf (Few)
[2022-05-11 11:03] LABS: Bacteria Mod /hpf; Mucus Light (0-Heavy)
[2022-05-11] MEDS ORDERED: METO10 PO (12:04)
[2022-06-28] MEDS ORDERED: METO10 PO (02:21)
[2022-07-22] MEDS ORDERED: ACET325 PO (13:39)
[2022-07-22] MEDS ORDERED: FAMO20 PO (13:39)
[2022-07-22] MEDS ORDERED: BASAGLAR K100 UNIT/1 SC (13:40)
[2022-07-22] MEDS ORDERED: HALO.5 PO (13:40)
== END 2022-05-11 12:11 | disposition home or self-care (01) ==
LOC: ER 05:55
PROVIDERS: Student in an Organized Health Care Education/Training Program
DX: E86.0 Dehydration (principal); F12.90 Cannabis use, unspecified, uncomplicated; R79.89 Other specified abnormal findings of blood chemistry; R11.2 Nausea with vomiting, unspecified; E11.9 Type 2 diabetes mellitus without complications; F17.200 Nicotine dependence, unspecified, uncomplicated; Z79.4 Long term (current) use of insulin; Z88.0 Allergy status to penicillin; Z88.8 Allergy status to other drugs, medicaments and biological substances; Z20.822 Contact with and (suspected) exposure to COVID-19
CPT/HCPCS: 0241U; 36415; 71045; 74177; 76705; 80053; 81001; 82010; 82248; 82803; 83690; 83735; 85025; 87086; 93005; 93010; 96365; 96366; 96368; 96375; 99284-25; J2405; J3475; J3480; J7030; J7050; J7120; Q9967

== ENCOUNTER 2022-06-29 03:40 | Emergency (ER) | payer OTHER ==
[~2022-06-29] VITALS: Ht 175.3 cm; Wt 86.2 kg
[2022-06-29 05:31] LABS: BASOPHILS ABSOLUTE AUTO 0.03 K/mm3 (0.00-0.23); BASOPHILS PERCENT AUTO 0 % (0-2); EOSINOPHILS PERCENT AUTO 0 % (0-6); Hemoglobin 14.4 g/dL (13.5-17.5); IMMATURE GRAN ABSOLUTE AUTO 0.03 K/mm3 (0.00-0.10); IMMATURE GRAN PERCENT AUTO 0 % (0-1); LYMPHOCYTES ABSOLUTE AUTO 1.36 K/mm3 (0.84-5.20); LYMPHOCYTES PERCENT AUTO 10 % (21-46); MONOCYTES ABSOLUTE AUTO 0.78 K/mm3 (0.16-1.47); MONOCYTES PERCENT AUTO 6 % (4-13); Mean Corpuscular HGB 29.6 pg (26.0-34.0); Mean Corpuscular HGB Conc 35.1 g/dL (31.5-36.5); Mean Corpuscular Volume 84 fL (80-100); Mean Platelet Volume 10.3 fL (9.1-12.4); NEUTROPHILS ABSOLUTE AUTO 10.89 K/mm3 (1.96-9.15); NEUTROPHILS PERCENT AUTO 83 % (41-73); Platelet Count 265 K/mm3 (150-400); RDW Coefficient Variation 12.1 % (11.7-14.2); Red Blood Cell Count 4.86 M/mm3 (4.30-5.90); White Blood Cell Count 13.09 K/mm3 (4.00-11.30)
[2022-06-29 06:05] LABS: Influenza A, PCR NEGATIVE (NEGATIVE); Influenza B, PCR NEGATIVE (NEGATIVE); Resp Syncytial Virus, PCR NEGATIVE (NEGATIVE); SARS-Cov-2 (COVID-19) PCR, MMC NEGATIVE (NEGATIVE)
[2022-06-29 06:15] LABS: Albumin, Blood 4.1 g/dL (3.4-5.0); Albumin/Globulin Ratio 1.3 (0.8-1.8); Beta-hydroxybutyrate 19.4 mg/dL (0.2-2.8); Bilirubin, Total 1.3 mg/dL (0.1-1.0); Bun/Creatinine Ratio 18.1 (12.0-20.0); Calcium, Blood 9.1 mg/dL (8.5-10.1); Creatinine, Blood 0.61 mg/dL (0.60-1.20); Globulin, Blood 3.1 g/dL (2.2-4.0); Potassium, Blood 3.6 mmol/L (3.5-5.5); Total Protein, Blood 7.2 g/dL (6.4-8.2)
[2022-06-29] MEDS ORDERED: HALO2 PO (06:54)
== END 2022-06-29 08:35 | disposition home or self-care (01) ==
LOC: ER 03:40
PROVIDERS: Emergency Medicine
DX: R11.2 Nausea with vomiting, unspecified (principal); F12.20 Cannabis dependence, uncomplicated; E86.0 Dehydration; Z20.822 Contact with and (suspected) exposure to COVID-19; Z79.899 Other long term (current) drug therapy
CPT/HCPCS: 0241U; 36415; 80053; 82010; 82800; 83690; 85025; 96361; 96374; 96375; 99283-25; J1790; J2550; J7030

== ENCOUNTER 2022-10-02 20:18 | Emergency (ER) | payer OTHER ==
[~2022-10-02] VITALS: Ht 175.3 cm; Wt 81.7 kg
[~2022-10-02 20:18] MED LIST changes: +FAMO20 PO; +HALO.5 PO; +HALO2 PO
[2022-10-02 21:22] LABS: Mean Corpuscular HGB 29.1 pg (26.0-34.0); Mean Corpuscular Volume 79 fL (80-100); Mean Platelet Volume 9.7 fL (9.1-12.4); Platelet Count 369 K/mm3 (150-400); RDW Coefficient Variation 12.1 % (11.7-14.2); RDW Standard Deviation 34.4 fL (35.1-46.3); Red Blood Cell Count 5.84 M/mm3 (4.30-5.90)
[2022-10-02 21:23] LABS: Base Excess Venous 11.2 mmol/L; Bicarbonate Venous 33.8 mmol/L (24.0-30.0); PCO2 Venous 38.2 mmHg (38-42); pH Blood Venous 7.55 (7.34-7.37)
[2022-10-02 22:19] LABS: Source, Urine Clean Catch
[2022-10-02 22:21] LABS: BAND PERCENT MAN 3 % (0-8); BASOPHILS PERCENT MAN 0 % (0-2); EOSINOPHILS PERCENT MAN 0 % (0-6); LYMPHOCYTES ABSOLUTE MAN 0.76 K/mm3 (0.84-5.20); LYMPHOCYTES PERCENT MAN 3 % (21-46); MONOCYTES ABSOLUTE MAN 2.29 K/mm3 (0.16-1.47); MONOCYTES PERCENT MAN 9 % (4-13); NEUTROPHILS ABSOLUTE MAN 22.44 K/mm3 (1.96-9.15); SEG NEUTROPHILS PERCENT MAN 85 % (41-73); TOTAL CELLS COUNTED 100
[2022-10-02 22:38] LABS: Bilirubin, Urine Neg (Neg); Blood, Urine 1+ (Neg); Color, Urine Yellow (P-Yellow); Glucose Qualitative, Urine 2+ (Neg); Ketones, Urine 4+ (Neg); Leukocyte Esterase, Urine 1+ (Neg); Nitrite, Urine Neg (Neg); Protein, Urine 2+ (Neg); Specific Gravity, Urine 1.025 (1.003-1.022); Urobilinogen, Urine 1+ (Normal)
[2022-10-02 22:41] LABS: Ethanol (Alcohol), Blood, Med <3 mg/dL
[2022-10-02 22:48] LABS: Alanine Aminotransfer (ALT/SGP 81 U/L (12-78); Albumin, Blood 4.9 g/dL (3.4-5.0); Albumin/Globulin Ratio 1.2 (0.8-1.8); Alk Phos 93 U/L (50-136); Anion Gap 18 mmol/L (6-16); Aspartate Aminotrans (AST/SGOT 37 U/L (12-37); Beta-hydroxybutyrate 55.2 mg/dL (0.2-2.8); Bilirubin, Total 1.6 mg/dL (0.1-1.0); Blood Urea Nitrogen 33 mg/dL (8-24); Bun/Creatinine Ratio 37.5 (12.0-20.0); CO2, Blood 31 mmol/L (21-32); Calcium, Blood 10.6 mg/dL (8.5-10.1); Chloride, Blood 81 mmol/L (98-108); Creatinine, Blood 0.88 mg/dL (0.60-1.20); Globulin, Blood 4.1 g/dL (2.2-4.0); Glomerular Filtration Rate 120 (60-); Glucose, Blood 187 mg/dL (70-99); Potassium, Blood 3.9 mmol/L (3.5-5.5); Sodium, Blood 130 mmol/L (136-145)
[2022-10-02 23:06] LABS: Appearance, Urine Hazy (Clear)
[2022-10-02 23:16] LABS: Influenza A, PCR NEGATIVE (NEGATIVE); Influenza B, PCR NEGATIVE (NEGATIVE); Resp Syncytial Virus, PCR NEGATIVE (NEGATIVE); SARS-Cov-2 (COVID-19) PCR, MMC NEGATIVE (NEGATIVE)
[2022-10-02 23:58] LABS: Osmolality, Serum 294 mos/KG (275-300)
[2022-10-03 00:26] LABS: U Amphetamine Screen Not Detected; U Barbituate Screen Not Detected; U Benzodiazapine Screen Not Detected; U Buprenorphine Screen Not Detected; U Cannabinoids Screen DETECTED; U Cocaine Screen Not Detected; U Methadone Screen Not Detected; U Methamphetamine Screen Not Detected; U Opiates Screen Not Detected; U Oxycodone Screen Not Detected; U Phencyclidine Screen Not Detected; U Propoxyphene Screen Not Detected
[2022-10-03 00:54] LABS: Bacteria Few /hpf; Mucus Mod (0-Heavy); Squamous Epithelial Cells Few /hpf (Few)
[2022-10-03 02:37] LABS: Bun/Creatinine Ratio 36.7 (12.0-20.0); Calcium, Blood 8.9 mg/dL (8.5-10.1); Creatinine, Blood 0.68 mg/dL (0.60-1.20); Potassium, Blood 3.4 mmol/L (3.5-5.5)
[2022-10-03] MEDS ORDERED: HALO5 PO (04:52)
== END 2022-10-03 05:00 | disposition home or self-care (01) ==
LOC: ER 20:18
PROVIDERS: Emergency Medicine; Student in an Organized Health Care Education/Training Program
DX: R11.2 Nausea with vomiting, unspecified (principal); F12.90 Cannabis use, unspecified, uncomplicated; E86.0 Dehydration; E10.10 Type 1 diabetes mellitus with ketoacidosis without coma; Z20.822 Contact with and (suspected) exposure to COVID-19; F17.200 Nicotine dependence, unspecified, uncomplicated; Z88.0 Allergy status to penicillin; Z88.6 Allergy status to analgesic agent; Z79.4 Long term (current) use of insulin
CPT/HCPCS: 0241U; 36415; 71045; 80048; 80053; 81001; 82010; 82803; 83605; 83690; 83735; 83930; 85025; 87086; G0480; J1630; J1790; J2405; J7030; J7120

== ENCOUNTER 2023-03-16 07:32 | Emergency (ER) | payer OTHER ==
[~2023-03-16] VITALS: Ht 175.3 cm; Wt 81.7 kg
[~2023-03-16 07:32] MED LIST changes: +HALO5 PO
[2023-03-16 09:00] LABS: Base Excess Venous 2.8 mmol/L; Bicarbonate Venous 26.5 mmol/L (24.0-30.0); PCO2 Venous 40.7 mmHg (38-42); pH Blood Venous 7.43 (7.34-7.37)
[2023-03-16 09:03] LABS: BASOPHILS ABSOLUTE AUTO 0.03 K/mm3 (0.00-0.23); BASOPHILS PERCENT AUTO 0 % (0-2); EOSINOPHILS PERCENT AUTO 0 % (0-6); Hematocrit 41.5 % (37.0-53.0); Hemoglobin 14.6 g/dL (13.5-17.5); IMMATURE GRAN ABSOLUTE AUTO 0.08 K/mm3 (0.00-0.10); IMMATURE GRAN PERCENT AUTO 1 % (0-1); LYMPHOCYTES ABSOLUTE AUTO 0.62 K/mm3 (0.84-5.20); LYMPHOCYTES PERCENT AUTO 4 % (21-46); MONOCYTES ABSOLUTE AUTO 0.89 K/mm3 (0.16-1.47); MONOCYTES PERCENT AUTO 5 % (4-13); Mean Corpuscular HGB 28.8 pg (26.0-34.0); Mean Corpuscular HGB Conc 35.2 g/dL (31.5-36.5); Mean Corpuscular Volume 82 fL (80-100); Mean Platelet Volume 9.9 fL (9.1-12.4); NEUTROPHILS ABSOLUTE AUTO 15.53 K/mm3 (1.96-9.15); NEUTROPHILS PERCENT AUTO 91 % (41-73); Platelet Count 309 K/mm3 (150-400); RDW Coefficient Variation 11.9 % (11.7-14.2); RDW Standard Deviation 35.3 fL (35.1-46.3); Red Blood Cell Count 5.07 M/mm3 (4.30-5.90); White Blood Cell Count 17.15 K/mm3 (4.00-11.30)
[2023-03-16 09:28] LABS: Magnesium, Blood 1.8 mg/dL (1.6-2.4)
[2023-03-16 09:40] VITALS: BP 137/80
[2023-03-16 10:00] LABS: Albumin, Blood 4.4 g/dL (3.4-5.0); Albumin/Globulin Ratio 1.2 (0.8-1.8); Bilirubin, Total 1.2 mg/dL (0.1-1.0); Bun/Creatinine Ratio 27.7 (12.0-20.0); Calcium, Blood 9.7 mg/dL (8.5-10.1); Creatinine, Blood 0.76 mg/dL (0.60-1.20); Globulin, Blood 3.6 g/dL (2.2-4.0); Potassium, Blood 3.6 mmol/L (3.5-5.5)
[2023-03-16 10:02] LABS: Beta-hydroxybutyrate 51.1 mg/dL (0.2-2.8)
[2023-03-16] MEDS ORDERED: INSULANI ×2 (10:57→10:59)
[2023-03-16] MEDS ORDERED: NOVOLOG100 UNIT/2 INJ (10:57)
[2023-03-16] MEDS ORDERED: CATAPRES-TTS 11 EAC1 (10:58)
[2023-03-16] MEDS ORDERED: COMPAZINE10 MG PO (11:13)
[2023-03-18] MEDS ORDERED: POTCHL20ER PO (11:29)
[2023-03-18] MEDS ORDERED: ONDA4 PO (11:29)
[2023-03-18] MEDS ORDERED: PROM25 PO (11:29)
== END 2023-03-16 11:45 | disposition home or self-care (01) ==
LOC: ER 07:32
PROVIDERS: Emergency Medicine
DX: R11.2 Nausea with vomiting, unspecified (principal); E86.0 Dehydration; E10.65 Type 1 diabetes mellitus with hyperglycemia; F17.200 Nicotine dependence, unspecified, uncomplicated; Z79.4 Long term (current) use of insulin
CPT/HCPCS: 80053; 82010; 82803; 82947; 83690; 83735; 85025; J0780; J7030

== ENCOUNTER 2023-08-16 18:03 | Inpatient (IN) | payer OTHER ==
[~2023-08-16] VITALS: Ht 175.3 cm; Wt 86.2 kg
[~2023-08-16 18:03] MED LIST changes: +CATAPRES-TTS 11 EAC1; +INSULANI; +NOVOLOG100 UNIT/2 INJ; +POTCHL20ER PO
[2023-08-16 18:31] LABS: BASOPHILS ABSOLUTE AUTO 0.03 K/mm3 (0.00-0.23); BASOPHILS PERCENT AUTO 0 % (0-2); EOSINOPHILS PERCENT AUTO 0 % (0-6); Hematocrit 43.1 % (37.0-53.0); Hemoglobin 14.8 g/dL (13.5-17.5); IMMATURE GRAN ABSOLUTE AUTO 0.06 K/mm3 (0.00-0.10); IMMATURE GRAN PERCENT AUTO 0 % (0-1); LYMPHOCYTES ABSOLUTE AUTO 0.72 K/mm3 (0.84-5.20); LYMPHOCYTES PERCENT AUTO 5 % (21-46); MONOCYTES ABSOLUTE AUTO 0.25 K/mm3 (0.16-1.47); MONOCYTES PERCENT AUTO 2 % (4-13); Mean Corpuscular HGB 28.9 pg (26.0-34.0); Mean Corpuscular HGB Conc 34.3 g/dL (31.5-36.5); Mean Corpuscular Volume 84 fL (80-100); Mean Platelet Volume 9.7 fL (9.1-12.4); NEUTROPHILS ABSOLUTE AUTO 14.58 K/mm3 (1.96-9.15); NEUTROPHILS PERCENT AUTO 93 % (41-73); Platelet Count 333 K/mm3 (150-400); RDW Coefficient Variation 12.2 % (11.7-14.2); Red Blood Cell Count 5.12 M/mm3 (4.30-5.90); White Blood Cell Count 15.64 K/mm3 (4.00-11.30)
[2023-08-16 19:47] LABS: Albumin, Blood 4.4 g/dL (3.4-5.0); Albumin/Globulin Ratio 1.2 (0.8-1.8); Bilirubin, Total 0.9 mg/dL (0.1-1.0); Bun/Creatinine Ratio 20.5 (12.0-20.0); Creatinine, Blood 0.68 mg/dL (0.60-1.20); Globulin, Blood 3.7 g/dL (2.2-4.0); Magnesium, Blood 1.9 mg/dL (1.6-2.4); Total Protein, Blood 8.1 g/dL (6.4-8.2)
[2023-08-16 22:05] LABS: Base Excess Venous 0.4 mmol/L; Bicarbonate Venous 24.9 mmol/L (24.0-30.0); PCO2 Venous 37.3 mmHg (38-42); pH Blood Venous 7.43 (7.34-7.37)
[2023-08-16 22:24] LABS: Source, Urine Clean Catch
[2023-08-16 22:34] LABS: Bilirubin, Urine Neg (Neg); Blood, Urine 2+ (Neg); Glucose Qualitative, Urine 4+ (Neg); Ketones, Urine 4+ (Neg); Leukocyte Esterase, Urine Neg (Neg); Nitrite, Urine Neg (Neg); Protein, Urine 2+ (Neg); Urobilinogen, Urine NORM (Normal)
[2023-08-16 23:01] LABS: Appearance, Urine Clear (Clear); Color, Urine Yellow (P-Yellow)
[2023-08-16 23:02] LABS: Bacteria Rare /hpf; Squamous Epithelial Cells Rare /hpf (Few); White Blood Cells, Urine 0-2 /hpf (0-5)
[2023-08-17 02:59] LABS: BASOPHILS ABSOLUTE AUTO 0.02 K/mm3 (0.00-0.23); BASOPHILS PERCENT AUTO 0 % (0-2); EOSINOPHILS PERCENT AUTO 0 % (0-6); Hematocrit 40.4 % (37.0-53.0); Hemoglobin 13.8 g/dL (13.5-17.5); IMMATURE GRAN ABSOLUTE AUTO 0.06 K/mm3 (0.00-0.10); IMMATURE GRAN PERCENT AUTO 0 % (0-1); LYMPHOCYTES ABSOLUTE AUTO 0.94 K/mm3 (0.84-5.20); LYMPHOCYTES PERCENT AUTO 6 % (21-46); MONOCYTES ABSOLUTE AUTO 0.69 K/mm3 (0.16-1.47); MONOCYTES PERCENT AUTO 5 % (4-13); Mean Corpuscular HGB 29.2 pg (26.0-34.0); Mean Corpuscular HGB Conc 34.2 g/dL (31.5-36.5); Mean Corpuscular Volume 85 fL (80-100); Mean Platelet Volume 9.7 fL (9.1-12.4); NEUTROPHILS ABSOLUTE AUTO 13.42 K/mm3 (1.96-9.15); NEUTROPHILS PERCENT AUTO 89 % (41-73); Platelet Count 295 K/mm3 (150-400); RDW Coefficient Variation 12.3 % (11.7-14.2); RDW Standard Deviation 38.3 fL (35.1-46.3); Red Blood Cell Count 4.73 M/mm3 (4.30-5.90); White Blood Cell Count 15.13 K/mm3 (4.00-11.30)
[2023-08-17 03:19] LABS: Albumin, Blood 3.7 g/dL (3.4-5.0); Albumin/Globulin Ratio 1.2 (0.8-1.8); Bilirubin, Total 0.9 mg/dL (0.1-1.0); Bun/Creatinine Ratio 18.4 (12.0-20.0); Calcium, Blood 8.5 mg/dL (8.5-10.1); Creatinine, Blood 0.71 mg/dL (0.60-1.20); Globulin, Blood 3.1 g/dL (2.2-4.0); Total Protein, Blood 6.8 g/dL (6.4-8.2)
[2023-08-17 03:23] LABS: U Amphetamine Screen Not Detected; U Barbituate Screen Not Detected; U Benzodiazapine Screen Not Detected; U Buprenorphine Screen Not Detected; U Cannabinoids Screen DETECTED; U Cocaine Screen Not Detected; U Methadone Screen Not Detected; U Methamphetamine Screen Not Detected; U Opiates Screen Not Detected; U Oxycodone Screen Not Detected; U Phencyclidine Screen Not Detected; U Propoxyphene Screen Not Detected
[2023-08-17 05:55] VITALS: BP 173/92
[2023-08-17 07:49] VITALS: BP 124/68
[2023-08-17 16:31] VITALS: BP 170/96
[2023-08-17 17:00] VITALS: BP 154/90
--- NOTE | 2023-08-17 18:37 | NUR ---
SHIFT SUMMARY: PATIENT IS A/OX4. PLEASANT AND COOPERATIVE c CARE. DENIES CP/PRESSURE, SOB, AND DIZZINESS. REPORTS NAUSEA AND HAD VOMITING 300 MLS OF BILE COLOR. PATIENT HAD 2 SHOWERED THIS SHIFT. PER PATIENT "SHOWERED HELPS c MY NAUSEA." MEDICATED X1 c PRN NAUSEA MEDS c GOOD EFFECT. PATIENT TOLERATED WELL ON CL DIET AND REQUESTED NOT TO ADVANCED TO FL. BS IN THE 200'S RANGE THIS SHIFT, MEDICATED c INSULIN PER EMAR COVERAGE. PATIENT IS INDEPENDENT IN ROOM. VITAL SIGNS REVIEWED. PIV TO RAC INFUSING NS AT 100 MLS/HR. CALL LIGHT IN REACH.
[2023-08-17 20:06] VITALS: BP 151/90
[2023-08-18 04:07] VITALS: BP 160/96
--- NOTE | 2023-08-18 07:27 | NUR ---
SHIFT SUMMARY PATIENT IS A/Ox4, MILDLY IRRITABLE/WITHDRAWN, COOPERATIVE WITH CARES. DENIES PAIN/DISCOMFORT. C/O ONGOING NAUSEA, MEDICATED PER DEC, TOLERATED WELL. PATIENT REQUESTED TO SHOWER X1 THIS SHIFT. MOSTLY INDEPENDENT IN ROOM. NO ACUTE CHANGES NOTED OVERNIGHT. BED LOCKED AND IN LOWEST POSITION, CALL LIGHT WITHIN REACH.
[2023-08-18 07:50] VITALS: BP 135/75
[2023-08-18 08:57] LABS: BASOPHILS ABSOLUTE AUTO 0.04 K/mm3 (0.00-0.23); BASOPHILS PERCENT AUTO 0 % (0-2); EOSINOPHILS PERCENT AUTO 0 % (0-6); Hematocrit 40.4 % (37.0-53.0); Hemoglobin 14.2 g/dL (13.5-17.5); IMMATURE GRAN ABSOLUTE AUTO 0.08 K/mm3 (0.00-0.10); IMMATURE GRAN PERCENT AUTO 0 % (0-1); LYMPHOCYTES ABSOLUTE AUTO 1.51 K/mm3 (0.84-5.20); LYMPHOCYTES PERCENT AUTO 8 % (21-46); MONOCYTES ABSOLUTE AUTO 0.91 K/mm3 (0.16-1.47); MONOCYTES PERCENT AUTO 5 % (4-13); Mean Corpuscular HGB 29.5 pg (26.0-34.0); Mean Corpuscular HGB Conc 35.1 g/dL (31.5-36.5); Mean Corpuscular Volume 84 fL (80-100); NEUTROPHILS ABSOLUTE AUTO 15.72 K/mm3 (1.96-9.15); NEUTROPHILS PERCENT AUTO 86 % (41-73); Platelet Count 294 K/mm3 (150-400); RDW Coefficient Variation 12.1 % (11.7-14.2); Red Blood Cell Count 4.81 M/mm3 (4.30-5.90); White Blood Cell Count 18.26 K/mm3 (4.00-11.30)
[2023-08-18 09:31] LABS: Albumin, Blood 3.9 g/dL (3.4-5.0); Albumin/Globulin Ratio 1.2 (0.8-1.8); Bilirubin, Total 1.5 mg/dL (0.1-1.0); Bun/Creatinine Ratio 15.5 (12.0-20.0); Calcium, Blood 8.9 mg/dL (8.5-10.1); Creatinine, Blood 0.65 mg/dL (0.60-1.20); Globulin, Blood 3.3 g/dL (2.2-4.0); Potassium, Blood 3.6 mmol/L (3.5-5.5); Total Protein, Blood 7.2 g/dL (6.4-8.2)
[2023-08-18 15:50] VITALS: BP 160/88
[2023-08-18] MEDS ORDERED: HALO.5 PO (16:30)
--- NOTE | 2023-08-18 16:41 | NUR ---
SHIFT/DISCHARGE SUMMARY: PATIENT IS A/OX4. PLEASANT AND COOPERATIVE c CARE. USES CALL LIGHT APPROPRIATELY AND ABLE TO MAKE NEEDS KNOWN. PATIENT TOLERATING CL DIET FOR BREAKFAST. PATIENT REQUESTED TO ADVANCE HIS DIET TO FL AT LUNCH, ATE ABOUT COUPLE BITES FOR LUNCH. REPORTS NAUSEA, MEDICATED c PRN NAUSEA MEDS PER EMAR c GOOD EFFECT. PATIENT IS CONTINENCE OF BOWELS AND BLADDER, AMBULATES TO BATHROOM INDEPENDENTLY. BS IN THE 200'S RANGE THIS SHIFT, RECEIVED INSULIN COVERAGE PER EMAR. AT AROUND 1500'S PATIENT REQUESTED TO BE DISCHARGE. THIS RN NOTIFIED DR. CHAPPELL c PATIENT REQUEST. PER DR. CHAPPELL SHE WILL PLACED DISCHARGE ORDER IN. PATIENT DISCHARGE HOME. DISCHARGE INSTRUCTIONS PACKET GIVEN TO PATIENT. EDUCATE PATIENT REGARDING ADMITTING DX'S OF N/V, S/S, TX, SELF CARE, NEW PRESCRIBED NAUSEA MEDS AND TO FOLLOW UP c HIS PCP WITHIN A WEEK. PATIENT VERBALIZED UNDERSTANDING AND NO FURTHER QUESTIONS. RX WAS FAXED TO PATIENT PREFERRED PHARMACY ([facility]). ALL PATIENT PERSONAL BELONGINGS WERE SENT HOME c THE PATIENT. PATIENT LEFT THE ROOM AT AROUND 1642 AND WAS TRANSPORTED VIA WHEELCHAIR BY [facility] STAFF[facility]ULIO CÉSAR TO PATIENT ENTRANCE.
== END 2023-08-18 16:55 | disposition home or self-care (01) | DRG 74 ==
LOC: ER 18:03 → MEDS 18:04
PROVIDERS: Internal Medicine; Physician Assistant; Student in an Organized Health Care Education/Training Program; ADMIT Internal Medicine
DX: E10.43 Type 1 diabetes mellitus with diabetic autonomic (poly)neuropathy (principal); D68.00 Von Willebrand disease, unspecified; K31.84 Gastroparesis; M54.9 Dorsalgia, unspecified; G89.29 Other chronic pain; F41.9 Anxiety disorder, unspecified; E86.0 Dehydration; E10.65 Type 1 diabetes mellitus with hyperglycemia; F12.90 Cannabis use, unspecified, uncomplicated; F32.A Depression, unspecified; D72.829 Elevated white blood cell count, unspecified; F17.210 Nicotine dependence, cigarettes, uncomplicated; Z88.1 Allergy status to other antibiotic agents; Z88.8 Allergy status to other drugs, medicaments and biological substances; Z79.4 Long term (current) use of insulin; Z79.899 Other long term (current) drug therapy; Z86.14 Personal history of Methicillin resistant Staphylococcus aureus infection; Z71.51 Drug abuse counseling and surveillance of drug abuser
CPT/HCPCS: 36415; 74177; 80053; 81001; 82803; 82947; 83690; 83735; 83880; 85025; 93005; 93010; 96361; 96372; 96374; 96375; 99285-25; A9270; G0378; J0780; J1650; J1790; J1815; J1885; J2405; J2765; J7030; Q9967

== ENCOUNTER 2023-09-18 09:06 | Emergency (ER) | payer OTHER ==
[~2023-09-18] VITALS: Ht 175.3 cm; Wt 90.7 kg
[2023-09-18 10:44] LABS: Source, Urine Clean Catch
[2023-09-18 10:51] LABS: Appearance, Urine Clear (Clear); Bilirubin, Urine Neg (Neg); Blood, Urine 1+ (Neg); Glucose Qualitative, Urine 4+ (Neg); Ketones, Urine 4+ (Neg); Leukocyte Esterase, Urine Neg (Neg); Nitrite, Urine Neg (Neg); Protein, Urine Neg (Neg); Urobilinogen, Urine NORM (Normal)
[2023-09-18 10:53] LABS: BASOPHILS ABSOLUTE AUTO 0.02 K/mm3 (0.00-0.23); BASOPHILS PERCENT AUTO 0 % (0-2); EOSINOPHILS PERCENT AUTO 0 % (0-6); Hematocrit 48.1 % (37.0-53.0); Hemoglobin 16.4 g/dL (13.5-17.5); IMMATURE GRAN ABSOLUTE AUTO 0.07 K/mm3 (0.00-0.10); IMMATURE GRAN PERCENT AUTO 1 % (0-1); LYMPHOCYTES ABSOLUTE AUTO 0.69 K/mm3 (0.84-5.20); LYMPHOCYTES PERCENT AUTO 5 % (21-46); MONOCYTES ABSOLUTE AUTO 0.62 K/mm3 (0.16-1.47); MONOCYTES PERCENT AUTO 5 % (4-13); Mean Corpuscular HGB 28.8 pg (26.0-34.0); Mean Corpuscular HGB Conc 34.1 g/dL (31.5-36.5); Mean Corpuscular Volume 84 fL (80-100); Mean Platelet Volume 9.8 fL (9.1-12.4); NEUTROPHILS ABSOLUTE AUTO 11.67 K/mm3 (1.96-9.15); NEUTROPHILS PERCENT AUTO 89 % (41-73); Platelet Count 354 K/mm3 (150-400); RDW Coefficient Variation 12.3 % (11.7-14.2); RDW Standard Deviation 37.3 fL (35.1-46.3); White Blood Cell Count 13.07 K/mm3 (4.00-11.30)
[2023-09-18 11:04] LABS: Color, Urine Pale Yellow (P-Yellow)
[2023-09-18 11:06] LABS: Influenza A, PCR NEGATIVE (NEGATIVE); Influenza B, PCR NEGATIVE (NEGATIVE); Resp Syncytial Virus, PCR NEGATIVE (NEGATIVE); SARS-Cov-2 (COVID-19) PCR, MMC NEGATIVE (NEGATIVE)
[2023-09-18 11:09] LABS: White Blood Cells, Urine 0-2 /hpf (0-5)
[2023-09-18 11:10] LABS: Bacteria Rare /hpf; Red Blood Cells, Urine 0-2 /hpf (0-2); Squamous Epithelial Cells Rare /hpf (Few)
[2023-09-18 12:02] LABS: Albumin, Blood 4.8 g/dL (3.4-5.0); Albumin/Globulin Ratio 1.1 (0.8-1.8); Bilirubin, Total 1.3 mg/dL (0.1-1.0); Bun/Creatinine Ratio 25.2 (12.0-20.0); Creatinine, Blood 0.95 mg/dL (0.60-1.20); Globulin, Blood 4.3 g/dL (2.2-4.0); Potassium, Blood 4.5 mmol/L (3.5-5.5); Total Protein, Blood 9.1 g/dL (6.4-8.2)
[2023-09-18 12:31] LABS: Base Excess Venous -0.8 mmol/L; Bicarbonate Venous 23.6 mmol/L (24.0-30.0); PCO2 Venous 42.2 mmHg (38-42); pH Blood Venous 7.37 (7.34-7.37)
[2023-09-18] MEDS ORDERED: LOPE2C PO (14:54)
[2023-09-18] MEDS ORDERED: ONDA4ODT MM (14:54)
[2023-09-18 15:45] VITALS: BP 133/72
== END 2023-09-18 15:58 | disposition home or self-care (01) ==
LOC: ER 09:06
PROVIDERS: Emergency Medicine; Student in an Organized Health Care Education/Training Program
DX: E86.0 Dehydration (principal); R11.2 Nausea with vomiting, unspecified; R19.7 Diarrhea, unspecified; E10.65 Type 1 diabetes mellitus with hyperglycemia; F17.210 Nicotine dependence, cigarettes, uncomplicated; Z79.899 Other long term (current) drug therapy; Z88.0 Allergy status to penicillin; Z88.6 Allergy status to analgesic agent
CPT/HCPCS: 0241U; 80053; 81001; 82803; 82947; 83690; 85025; 96361; 96374; 96376; 99283; J2405; J7030

== ENCOUNTER 2023-09-21 09:37 | Observation (INO) | payer OTHER ==
[2023-09-21] VITALS (7 sets, daily range): BP systolic 111–152; BP diastolic 62–127
[~2023-09-21] VITALS: Ht 175.3 cm; Wt 90.5 kg
[~2023-09-21 09:37] MED LIST changes: +LOPE2C PO
[2023-09-21 10:29] LABS: BASOPHILS ABSOLUTE AUTO 0.04 K/mm3 (0.00-0.23); BASOPHILS PERCENT AUTO 0 % (0-2); EOSINOPHILS ABSOLUTE AUTO 0.03 K/mm3 (0.00-0.68); EOSINOPHILS PERCENT AUTO 0 % (0-6); Hematocrit 46.7 % (37.0-53.0); Hemoglobin 16.7 g/dL (13.5-17.5); IMMATURE GRAN ABSOLUTE AUTO 0.09 K/mm3 (0.00-0.10); IMMATURE GRAN PERCENT AUTO 1 % (0-1); LYMPHOCYTES ABSOLUTE AUTO 1.95 K/mm3 (0.84-5.20); LYMPHOCYTES PERCENT AUTO 13 % (21-46); MONOCYTES ABSOLUTE AUTO 1.32 K/mm3 (0.16-1.47); MONOCYTES PERCENT AUTO 8 % (4-13); Mean Corpuscular HGB Conc 35.8 g/dL (31.5-36.5); Mean Corpuscular Volume 81 fL (80-100); Mean Platelet Volume 9.9 fL (9.1-12.4); NEUTROPHILS ABSOLUTE AUTO 12.22 K/mm3 (1.96-9.15); NEUTROPHILS PERCENT AUTO 78 % (41-73); Platelet Count 365 K/mm3 (150-400); RDW Coefficient Variation 11.6 % (11.7-14.2); RDW Standard Deviation 33.8 fL (35.1-46.3); Red Blood Cell Count 5.75 M/mm3 (4.30-5.90); White Blood Cell Count 15.65 K/mm3 (4.00-11.30)
[2023-09-21 10:47] LABS: Albumin, Blood 4.1 g/dL (3.4-5.0); Albumin/Globulin Ratio 1.2 (0.8-1.8); Bilirubin, Total 2.3 mg/dL (0.1-1.0); Bun/Creatinine Ratio 34.3 (12.0-20.0); Calcium, Blood 9.2 mg/dL (8.5-10.1); Creatinine, Blood 0.61 mg/dL (0.60-1.20); Globulin, Blood 3.3 g/dL (2.2-4.0); Potassium, Blood 4.1 mmol/L (3.5-5.5); Total Protein, Blood 7.4 g/dL (6.4-8.2)
[2023-09-21 11:00] LABS: Magnesium, Blood 2.1 mg/dL (1.6-2.4); Phosphorus, Blood 3.5 mg/dL (2.5-4.9)
[2023-09-21 11:22] LABS: Bicarbonate Venous 27.8 mmol/L (24.0-30.0); PCO2 Venous 39.4 mmHg (38-42); pH Blood Venous 7.46 (7.34-7.37)
[2023-09-21 11:45] LABS: Influenza A, PCR NEGATIVE (NEGATIVE); Influenza B, PCR NEGATIVE (NEGATIVE); Resp Syncytial Virus, PCR NEGATIVE (NEGATIVE); SARS-Cov-2 (COVID-19) PCR, MMC NEGATIVE (NEGATIVE)
[2023-09-21 13:41] LABS: Source, Urine Clean Catch
[2023-09-21 13:50] LABS: Appearance, Urine Clear (Clear); Bilirubin, Urine Neg (Neg); Blood, Urine Neg (Neg); Color, Urine Yellow (P-Yellow); Glucose Qualitative, Urine 4+ (Neg); Ketones, Urine 4+ (Neg); Leukocyte Esterase, Urine Neg (Neg); Nitrite, Urine Neg (Neg); Protein, Urine Neg (Neg); Urobilinogen, Urine NORM (Normal)
[2023-09-21 15:52] LABS: Albumin, Blood 3.4 g/dL (3.4-5.0); Albumin/Globulin Ratio 1.2 (0.8-1.8); Bilirubin, Total 1.9 mg/dL (0.1-1.0); Bun/Creatinine Ratio 33.1 (12.0-20.0); Calcium, Blood 8.2 mg/dL (8.5-10.1); Creatinine, Blood 0.73 mg/dL (0.60-1.20); Globulin, Blood 2.9 g/dL (2.2-4.0); Potassium, Blood 4.5 mmol/L (3.5-5.5); Total Protein, Blood 6.3 g/dL (6.4-8.2)
--- NOTE | 2023-09-21 17:40 | NUR ---
ARRIVAL TO ICU PT ARRIVED TO ICU 11 AT THIS TIME. PT TRANSFERRED SELF TO BED. HE IS RECEIVING INSULIN 4UNITS/HR AND NS 150ML/HR. HE IS ALERT AND ORIENTED, ABLE TO ANSWER HEATLH HISTORY QUESTIONS. HE REPORTS HE HAS BEEN FEELING SICK SINCE EARLIER IN THE WEEK AND WAS SEEN AND DISCHARGED FROM THE ED THIS WEEK. HE HAS NOT BEEN EATING WELL THE LAST COUPLE DAYS AND EXPERIENCING NAUSEA AND VOMITING. SINUS TACH ON MONITOR WITH RATE IN 100S. SBP 130S. HE DENIES NAUSEA AT THIS TIME. ICE WATER PROVIDED. ODIN GUAN AT BEDSIDE PLACING POWERGLIDE.
[2023-09-21 17:56] LABS: Glucose, Blood 547 mg/dL (70-99)
[2023-09-21 19:21] LABS: Glucose, Blood 414 mg/dL (70-99)
[2023-09-21 22:20] LABS: Bun/Creatinine Ratio 33.4 (12.0-20.0); Calcium, Blood 7.9 mg/dL (8.5-10.1); Creatinine, Blood 0.57 mg/dL (0.60-1.20); Magnesium, Blood 2.1 mg/dL (1.6-2.4); Phosphorus, Blood 3.1 mg/dL (2.5-4.9); Potassium, Blood 3.7 mmol/L (3.5-5.5)
--- NOTE | 2023-09-21 22:53 | NUR ---
ASSUMED CARE OF PT AT 1900 TODAY. INSULIN GTT INFUSING PER MD ORDERS AND TITRATED DOWN BLOOD GLUCOSE HAS DECREASED. LAST FSBS 213, DR CHICAS NOTIFIED OF BLOOD GLUCOSE AND CURRENT LAB RESULTS. ORDERS RECEIVED FOR D5 1/2 NS @ 150, CONTINUE INSULIN GTT WITH GLUCOSE GOAL 200-300, HAVE PT EAT AND CALL BACK DR CHICAS AROUND 0000 TO REASSESS NEED FOR INSULIN GTT VS SQ INSULIN. TELEPHONE ORDERS READ BACK AND VERIFIED WITH PHYSICIAN.
[2023-09-22] VITALS (9 sets, daily range): BP systolic 116–148; BP diastolic 55–84
--- NOTE | 2023-09-22 02:24 | NUR ---
FOLLOWED UP WITH DR CHICAS DIRECTED. NEW ORDERS RECEIVED: LANTUS 60u SQ (HOME DOSE) X1 NOW AND DAILY, MONITOR FSBS 1-2 HRS, TURN OFF INSULIN GTT AND D51/2NS WHEN FSBS<200. TELEPHONE ORDERS READ BACK AND VERIFIED WITH PHYSICIAN. NO ACUTE CHANGES IN PT CONDITION, WILL CONTINUE TO MONITOR AND NOTIFY MD OF CHANGES.
[2023-09-22 03:54] LABS: Calcium, Blood 7.8 mg/dL (8.5-10.1); Creatinine, Blood 0.58 mg/dL (0.60-1.20); Magnesium, Blood 2.1 mg/dL (1.6-2.4); Phosphorus, Blood 2.6 mg/dL (2.5-4.9); Potassium, Blood 3.9 mmol/L (3.5-5.5)
--- NOTE | 2023-09-22 06:25 | NUR ---
SHIFT SUMMARY: NO ACUTE CHANGES SINCE LAST NOTE. FSBS NOW LESS THAN 200, INSULIN AND D51/2NS INFUSIONS STOPPED PER DR CHICAS'S ORDERS. PT HAS BEEN STABLE T/O THE NIGHT, AM LABS REVIEWED. WILL CONTINUE TO MONITOR FOR CHANGES AND NOTIFY MD. PT IS ABLE TO USE CALL LIGHT FOR NEEDS, CALL LIGHT IN REACH. WILL GIVE REPORT TO AM RN.
--- NOTE | 2023-09-22 07:00 | NUR ---
ASSUMPTION OF CARE PT TRANSITIONED TO SC INSULIN REGIMEN DURING THE NIGHT. HE IS ALERT AND ORIENTED. INDEPENDENT IN ROOM. TOLERATING PO FLUIDS WELL, EATING BREAKFAST NOW. NSR ON MONITOR, BP STABLE. SPO2 >98%. PT VOIDING WITHOUT DIFFICULTY. HOSPITALIST AT BEDSIDE, PLAN FOR DISCHARGE. PT AGREEABLE WITH PLAN.
--- NOTE | 2023-09-22 09:45 | NUR ---
DISCHARGE PT ATE SOME BREAKFAST AND DRANK A CHOCOLATE GLUCERNA. PT BECAME NAUSEOUS, MEDICATED PER EMAR. PT HAD ONE EPISODE OF EMESIS AND SYMPTOMS RESOLVED. PT REPORTS FEELING WELL ENOUGH TO GO HOME. DOCTOR'S NOTE PROVIDED BY HOSPITALIST. DISCHARGE INSTRUCTIONS PROVIDED. PT DRESSED SELF AND GATHERED BELONGINGS. PT DENIED ASSISTANCE OUT OF DEPARTMENT AND AMBULATED WITH STEADY GAIT OUT OF UNIT AT 0945.
== END 2023-09-22 09:45 | disposition home or self-care (01) ==
LOC: ER 09:37 → SURS 09:38 → ER 09:38 → ICUE 16:38
PROVIDERS: Student in an Organized Health Care Education/Training Program; ADMIT Internal Medicine
DX: E10.10 Type 1 diabetes mellitus with ketoacidosis without coma (principal); R11.2 Nausea with vomiting, unspecified; G89.29 Other chronic pain; M54.9 Dorsalgia, unspecified; F32.A Depression, unspecified; F17.210 Nicotine dependence, cigarettes, uncomplicated; F12.929 Cannabis use, unspecified with intoxication, unspecified; Z79.4 Long term (current) use of insulin; Z88.9 Allergy status to unspecified drugs, medicaments and biological substances
CPT/HCPCS: 0241U; 36415; 76705; 80048; 80053; 81003; 82010; 82803; 82947; 83690; 83735; 84100; 85025; 93005; 93010; 96360; 96361; 96372; 96374; 96375; 99285-25; A9270; C1751; G0378; J1650; J1790; J1815; J1885; J2765; J7030; J7042

== ENCOUNTER 2023-11-03 12:43 | Emergency (ER) | payer OTHER ==
[~2023-11-03] VITALS: Ht 175.3 cm; Wt 90.7 kg
[2023-11-03 13:13] LABS: Base Excess Venous 18.3 mmol/L; Bicarbonate Venous 41.4 mmol/L (24.0-30.0)
[2023-11-03 13:15] LABS: PO2 Venous 80.3 mmHg (38-42); pH Blood Venous 7.66 (7.34-7.37)
[2023-11-03 13:18] LABS: BASOPHILS ABSOLUTE AUTO 0.04 K/mm3 (0.00-0.23); BASOPHILS PERCENT AUTO 0 % (0-2); EOSINOPHILS PERCENT AUTO 0 % (0-6); Hematocrit 45.3 % (37.0-53.0); Hemoglobin 16.3 g/dL (13.5-17.5); IMMATURE GRAN ABSOLUTE AUTO 0.08 K/mm3 (0.00-0.10); IMMATURE GRAN PERCENT AUTO 0 % (0-1); LYMPHOCYTES ABSOLUTE AUTO 1.75 K/mm3 (0.84-5.20); LYMPHOCYTES PERCENT AUTO 8 % (21-46); MONOCYTES ABSOLUTE AUTO 1.65 K/mm3 (0.16-1.47); MONOCYTES PERCENT AUTO 8 % (4-13); Mean Corpuscular Volume 81 fL (80-100); Mean Platelet Volume 9.8 fL (9.1-12.4); NEUTROPHILS PERCENT AUTO 84 % (41-73); Platelet Count 369 K/mm3 (150-400); RDW Coefficient Variation 12.1 % (11.7-14.2); RDW Standard Deviation 34.8 fL (35.1-46.3); Red Blood Cell Count 5.62 M/mm3 (4.30-5.90); White Blood Cell Count 21.52 K/mm3 (4.00-11.30)
[2023-11-03 14:00] LABS: Albumin, Blood 4.5 g/dL (3.4-5.0); Albumin/Globulin Ratio 1.2 (0.8-1.8); Bilirubin, Total 1.5 mg/dL (0.1-1.0); Bun/Creatinine Ratio 29.4 (12.0-20.0); Calcium, Blood 9.5 mg/dL (8.5-10.1); Creatinine, Blood 0.72 mg/dL (0.60-1.20); Globulin, Blood 3.8 g/dL (2.2-4.0); Potassium, Blood 2.7 mmol/L (3.5-5.5); Total Protein, Blood 8.3 g/dL (6.4-8.2)
[2023-11-03 16:24] LABS: Source, Urine Clean Catch
[2023-11-03 16:31] LABS: Appearance, Urine Clear (Clear); Bilirubin, Urine Neg (Neg); Blood, Urine 1+ (Neg); Color, Urine Yellow (P-Yellow); Glucose Qualitative, Urine 3+ (Neg); Ketones, Urine 3+ (Neg); Leukocyte Esterase, Urine Neg (Neg); Nitrite, Urine Neg (Neg); Protein, Urine 2+ (Neg); Specific Gravity, Urine 1.015 (1.003-1.022); Urobilinogen, Urine NORM (Normal)
[2023-11-03 16:49] LABS: Bacteria Rare /hpf; Squamous Epithelial Cells Not Seen /hpf (Few); White Blood Cells, Urine 0-2 /hpf (0-5)
[2023-11-03] MEDS ORDERED: ONDA4ODT MM (18:19)
[2023-11-03] MEDS ORDERED: PROM12.5S PR (18:19)
[2023-11-03] MEDS ORDERED: METO10 PO (18:19)
[2023-11-03 19:00] VITALS: BP 117/62
== END 2023-11-03 19:13 | disposition home or self-care (01) ==
LOC: ER 12:43
PROVIDERS: Student in an Organized Health Care Education/Training Program
DX: E87.1 Hypo-osmolality and hyponatremia (principal); E87.6 Hypokalemia; E86.0 Dehydration; R10.13 Epigastric pain; M54.9 Dorsalgia, unspecified; G89.29 Other chronic pain; R31.29 Other microscopic hematuria; E10.65 Type 1 diabetes mellitus with hyperglycemia; F17.210 Nicotine dependence, cigarettes, uncomplicated
CPT/HCPCS: 80053; 81001; 82010; 82803; 82947; 85025; 96365; 96375; 96376; 99284-25; A9270; C9113; J1200; J1790; J3480; J7030

== ENCOUNTER 2023-11-09 15:17 | Inpatient (IN) | payer OTHER ==
[~2023-11-09] VITALS: Ht 170.2 cm; Wt 87.7 kg
[~2023-11-09 15:17] MED LIST changes: +PROM12.5S PR
[2023-11-09 17:54] LABS: Albumin, Blood 4.5 g/dL (3.4-5.0); Albumin/Globulin Ratio 1.2 (0.8-1.8); Bilirubin, Total 2.5 mg/dL (0.1-1.0); Calcium, Blood 10.6 mg/dL (8.5-10.1); Creatinine, Blood 1.54 mg/dL (0.60-1.20); Globulin, Blood 3.8 g/dL (2.2-4.0); Potassium, Blood 2.6 mmol/L (3.5-5.5); Total Protein, Blood 8.3 g/dL (6.4-8.2)
[2023-11-09 17:55] LABS: Beta-hydroxybutyrate 32.9 mg/dL (0.2-2.8)
[2023-11-09 18:46] LABS: Hematocrit 49.3 % (37.0-53.0); Hemoglobin 18.5 g/dL (13.5-17.5); Mean Corpuscular HGB Conc 37.5 g/dL (31.5-36.5); Mean Corpuscular Volume 77 fL (80-100); Mean Platelet Volume 10.7 fL (9.1-12.4); Platelet Count 493 K/mm3 (150-400); RDW Coefficient Variation 11.7 % (11.7-14.2); RDW Standard Deviation 31.6 fL (35.1-46.3); Red Blood Cell Count 6.37 M/mm3 (4.30-5.90); White Blood Cell Count 32.98 K/mm3 (4.00-11.30)
[2023-11-09 19:55] LABS: BASOPHILS PERCENT MAN 0 % (0-2); EOSINOPHILS PERCENT MAN 0 % (0-6); LYMPHOCYTES % ATYPICAL MANUAL 3 % (0-0); LYMPHOCYTES ABSOLUTE MAN 2.63 K/mm3 (0.84-5.20); LYMPHOCYTES PERCENT MAN 5 % (21-46); MONOCYTES PERCENT MAN 7 % (4-13); NEUTROPHILS ABSOLUTE MAN 28.03 K/mm3 (1.96-9.15); SEG NEUTROPHILS PERCENT MAN 85 % (41-73); TOTAL CELLS COUNTED 100
[2023-11-09 20:13] LABS: Bicarbonate Venous 49.4 mmol/L (24.0-30.0); PCO2 Venous 34.9 mmHg (38-42); pH Blood Venous 7.72 (7.34-7.37)
[2023-11-09 20:27] LABS: Influenza A, PCR NEGATIVE (NEGATIVE); Influenza B, PCR NEGATIVE (NEGATIVE); Resp Syncytial Virus, PCR NEGATIVE (NEGATIVE); SARS-Cov-2 (COVID-19) PCR, MMC NEGATIVE (NEGATIVE)
[2023-11-09 21:12] LABS: Magnesium, Blood 2.4 mg/dL (1.6-2.4)
[2023-11-09 21:32] LABS: Bun/Creatinine Ratio 29.1 (12.0-20.0); Creatinine, Blood 1.48 mg/dL (0.60-1.20); Potassium, Blood 2.3 mmol/L (3.5-5.5)
[2023-11-10] VITALS (7 sets, daily range): BP systolic 108–148; BP diastolic 64–96
[2023-11-10 01:06] LABS: Source, Urine Clean Catch
[2023-11-10 01:08] LABS: Bilirubin, Urine Neg (Neg); Blood, Urine 2+ (Neg); Glucose Qualitative, Urine 2+ (Neg); Ketones, Urine 3+ (Neg); Leukocyte Esterase, Urine 1+ (Neg); Nitrite, Urine Neg (Neg); Protein, Urine 2+ (Neg); Urobilinogen, Urine 2+ (Normal)
[2023-11-10 01:17] LABS: Appearance, Urine Clear (Clear); Color, Urine Yellow (P-Yellow)
[2023-11-10 01:18] LABS: Amorphous Light (0-Heavy); Bacteria Rare /hpf; Hyaline Casts 25-50 /lpf (0-2); Red Blood Cells, Urine 0-2 /hpf (0-2); Squamous Epithelial Cells Rare /hpf (Few); White Blood Cells, Urine 0-2 /hpf (0-5)
[2023-11-10 01:25] LABS: U Amphetamine Screen Not Detected; U Barbituate Screen Not Detected; U Benzodiazapine Screen Not Detected; U Buprenorphine Screen Not Detected; U Cannabinoids Screen DETECTED; U Cocaine Screen Not Detected; U Methadone Screen Not Detected; U Methamphetamine Screen Not Detected; U Opiates Screen Not Detected; U Oxycodone Screen Not Detected; U Phencyclidine Screen Not Detected
[2023-11-10 05:48] LABS: Bun/Creatinine Ratio 33.6 (12.0-20.0); Calcium, Blood 8.2 mg/dL (8.5-10.1); Creatinine, Blood 0.95 mg/dL (0.60-1.20); Potassium, Blood 2.5 mmol/L (3.5-5.5)
--- NOTE | 2023-11-10 06:07 | NUR ---
SHIFT SUMMARY PT ARRIVED TO PCU AT 2350, PT A&O X4 ALTHOUGH PT IS IRRITABLE AND NOT WANTING TO ANSWER QUESTIONS. VSS; SBP 130 - 14-. HR ST WITH RATE IN 90 - 1 TEENS. PT AFEBRILE, REMAINS ON RA WITH SPO2 >96%. PT DENIES SOB, CP/PRESSURE, DIZZINESS. PT DOES REPORT MILD NAUSEA AT TRANSFER BUT DECLINES MEDICATION AT THIS TIME. PT TOLERATING PO FAIRLY, MOSTLY WATER AND ICE CHIPS. PT WITHOUT N/V UNTIL AROUND 0445 WHEN PT HAD ABOUT 600 MLS OUT OF EMESIS WHICH APPEARED TO BE MOSTLY WATER. MEDICATION PER EMAR WITH GOOD RELIEFT. CBG CHECKED AT THIS TIME; 123. PT DENIES OTHER SX. PT VOIDING INDEPENDENTLY IN URINAL WITH OVER 1000 MLS OUT. PT REPORS HAD BM X1; FORMED, BROWN AND MEDIUM. DENIES ANY CONCERNS. NO ACUTE EVENTS SINCE ADMIT TO PCU, PT ABLE TO USE CALL LIGHT AND MAKE NEEDS KNOWN. PT CONTINUES TO ASK FOR "SNACKS, MILK AND SODA". EDUCATION PROVIDED, PT VERBALIZED UNDERSTANDING YET WAS FRUSTRATED AND CONTINUES TO ASK FOR THESE. EDUCATION REINFORCED T/O SHIFT. PT STATES "WHY CAN'T I JUST HAVE IT AND TAKE MEDICATION". EDUCATION PROVIDED AGAIN, PT FINALLY AGREEABLE AND ABLE TO ACCEPT OTHER PO INTAKE. PT NOW RESTING, CALL LIGHT IN REACH. IVF PER EMAR. WILL UPDATE ONCOMING RN
--- NOTE | 2023-11-10 07:29 | NUR ---
AT BEDSIDE, PT VOMITING. WHEN PT ASSESSED FOR NAUSEA POST EMESIS PT STATES "I FEEL GOOD" PT DECLINES NAUSEA MEDICATIONS AT THIS TIME.
[2023-11-10 14:04] LABS: Bun/Creatinine Ratio 29.9 (12.0-20.0); Calcium, Blood 8.1 mg/dL (8.5-10.1); Creatinine, Blood 0.77 mg/dL (0.60-1.20); Potassium, Blood 3.2 mmol/L (3.5-5.5)
--- NOTE | 2023-11-10 18:52 | NUR ---
SHIFT SUMMARY PT AOX4. VSS. PT DENIES CP/PRESSURE. SPO2>92% ON RA. PT HAD EMESIS AT APPROX [address] MONTAÑO NOTIFIED ORDERS GIVEN, SEE EMAR. PT DECLINE MEDICATION FOR NAUSEA REPORTS NAUSEA HAD IMPROVED. PT UP TO SHOWER WITH CAREER AND GUIDANCE COUNSELOR STANDBY. PT SLEPT MAJORITY OF SHIFT AWAKENING TO VERBAL STIMULI. NO ACUTE CHANGES.
[2023-11-11 03:03] VITALS: BP 142/85
[2023-11-11 04:48] LABS: BASOPHILS ABSOLUTE AUTO 0.01 K/mm3 (0.00-0.23); BASOPHILS PERCENT AUTO 0 % (0-2); EOSINOPHILS ABSOLUTE AUTO 0.07 K/mm3 (0.00-0.68); EOSINOPHILS PERCENT AUTO 1 % (0-6); Hematocrit 33.8 % (37.0-53.0); Hemoglobin 11.8 g/dL (13.5-17.5); IMMATURE GRAN ABSOLUTE AUTO 0.11 K/mm3 (0.00-0.10); IMMATURE GRAN PERCENT AUTO 1 % (0-1); LYMPHOCYTES ABSOLUTE AUTO 2.24 K/mm3 (0.84-5.20); LYMPHOCYTES PERCENT AUTO 19 % (21-46); MONOCYTES ABSOLUTE AUTO 1.28 K/mm3 (0.16-1.47); MONOCYTES PERCENT AUTO 11 % (4-13); Mean Corpuscular HGB 28.9 pg (26.0-34.0); Mean Corpuscular HGB Conc 34.9 g/dL (31.5-36.5); Mean Platelet Volume 10.5 fL (9.1-12.4); NEUTROPHILS ABSOLUTE AUTO 7.97 K/mm3 (1.96-9.15); NEUTROPHILS PERCENT AUTO 68 % (41-73); Platelet Count 240 K/mm3 (150-400); RDW Coefficient Variation 11.8 % (11.7-14.2); RDW Standard Deviation 35.5 fL (35.1-46.3); Red Blood Cell Count 4.08 M/mm3 (4.30-5.90); White Blood Cell Count 11.68 K/mm3 (4.00-11.30)
[2023-11-11 04:58] LABS: Mean Corpuscular Volume 83 fL (80-100)
[2023-11-11 05:08] LABS: Magnesium, Blood 2.3 mg/dL (1.6-2.4)
--- NOTE | 2023-11-11 06:25 | NUR ---
SHIFT SUMMARY PT ALERT AND ORIENTED X 4, COOPERATIVE WITH CARE AND ABLE TO MAKE NEEDS KNOWN. PERRLA. ON RA AND MAINTAINING 02 SATURATION ABOVE 92%, HE DENIES SOB. HR SR 80'S AND HE HAS DENIED CHEST PAIN/PRESSURE ALL SHIFT. PT IS CONTINENT. POWERGLIDE TO R UPPER ARM INFUSING PER EMAR. TWO IV'S ON L FOREARM PATENT/FLUSHED/SALINE LOCKED. PT SAID AT BEGINNING OF SHIFT THAT HE SMOKES A PACK OF CIGS A DAY, NOTIFIED, AND PT MEDICATED PER EMAR. PT HAS DENIED NAUSEA/VOMITING/AND DIZINESS ALL SHIFT. HE HAS BEEN ABLE TO GET SOME SLEEP THIS SHIFT. SYMMETRICAL RISE AND FALL OF CHEST, 02 SATURATION ABOVE 92%, AND RR OF 16. CALL LIGHT WITHIN REACH.
[2023-11-11 07:11] VITALS: BP 128/85
[2023-11-11 07:15] LABS: Albumin, Blood 2.8 g/dL (3.4-5.0); Anion Gap 5 mmol/L (6-16); Blood Urea Nitrogen 20 mg/dL (8-24); CO2, Blood 37 mmol/L (21-32); Calcium, Blood 8.2 mg/dL (8.5-10.1); Chloride, Blood 91 mmol/L (98-108); Creatinine, Blood 0.72 mg/dL (0.60-1.20); Glomerular Filtration Rate 127 (60-); Glucose, Blood 151 mg/dL (70-99); Phosphorus, Blood 1.9 mg/dL (2.5-4.9); Potassium, Blood 3.1 mmol/L (3.5-5.5); Sodium, Blood 133 mmol/L (136-145)
--- NOTE | 2023-11-11 11:46 | NUR ---
SHIFT/DISCHARGE SUMMARY PT AOX4 VSS. PT DENIES CHEST PAIN/PRESSURE OR SOB. NO ACUTE CHANGES. PT EDUCATED ON FOLLOW UP WITH PCP AND DISCHARGE INSTRUCTIONS. PT VERBALIZES UNDERSTANDINGG AND REPORTS NO FUTHER QUESTIONS. PT D/C AT 1144 TO PRIVATE VEHICLE WITH BELONGINGS VIA WHEELCHAIR ACCOMPANIED BY GEOVANNY LINDA.
== END 2023-11-11 11:47 | disposition home or self-care (01) | DRG 683 ==
LOC: ER 15:17 → PCU 22:50
PROVIDERS: Emergency Medicine; Internal Medicine; Student in an Organized Health Care Education/Training Program; ADMIT Internal Medicine
DX: N17.9 Acute kidney failure, unspecified (principal); E87.1 Hypo-osmolality and hyponatremia; E87.3 Alkalosis; E86.0 Dehydration; E10.65 Type 1 diabetes mellitus with hyperglycemia; F12.90 Cannabis use, unspecified, uncomplicated; E87.6 Hypokalemia; Z88.8 Allergy status to other drugs, medicaments and biological substances; Z88.0 Allergy status to penicillin; Z79.4 Long term (current) use of insulin; Z86.14 Personal history of Methicillin resistant Staphylococcus aureus infection; Z11.52 Encounter for screening for COVID-19; Z72.0 Tobacco use
CPT/HCPCS: 0241U; 36415; 74177; 80048; 80053; 80069; 81001; 82010; 82803; 82947; 83605; 83690; 83735; 83930; 84145; 85025; 85027; 93005; 93010; 96361; 96365-59; 96367; 96375; 99285-25; A9270; C1751; J0696; J1815; J2765; J3480; J7030; J7050; Q9967

== ENCOUNTER 2023-12-11 09:04 | Emergency (ER) | payer OTHER ==
[~2023-12-11] VITALS: Ht 175.3 cm; Wt 95.2 kg
[2023-12-11] MEDS ORDERED: Famotidine 10 MG/ML 2ML Vial IV ONE (09:55)
[2023-12-11] MEDS ORDERED: Droperidol 5 mg/2 ml Vial IV ONE (09:55)
[2023-12-11] MEDS ORDERED: NS 1,000 ML IV SCH (09:55)
[2023-12-11 09:57] LABS: Base Excess Venous 2.8 mmol/L; Bicarbonate Venous 27.3 mmol/L (24.0-30.0); PCO2 Venous 33.1 mmHg (38-42)
[2023-12-11 10:12] LABS: BASOPHILS ABSOLUTE AUTO 0.03 K/mm3 (0.00-0.23); BASOPHILS PERCENT AUTO 0 % (0-2); EOSINOPHILS ABSOLUTE AUTO 0.01 K/mm3 (0.00-0.68); EOSINOPHILS PERCENT AUTO 0 % (0-6); Hematocrit 42.9 % (37.0-53.0); Hemoglobin 14.5 g/dL (13.5-17.5); IMMATURE GRAN ABSOLUTE AUTO 0.03 K/mm3 (0.00-0.10); IMMATURE GRAN PERCENT AUTO 0 % (0-1); LYMPHOCYTES ABSOLUTE AUTO 1.12 K/mm3 (0.84-5.20); LYMPHOCYTES PERCENT AUTO 12 % (21-46); MONOCYTES ABSOLUTE AUTO 0.24 K/mm3 (0.16-1.47); MONOCYTES PERCENT AUTO 3 % (4-13); Mean Corpuscular HGB 29.2 pg (26.0-34.0); Mean Corpuscular HGB Conc 33.8 g/dL (31.5-36.5); Mean Corpuscular Volume 87 fL (80-100); Mean Platelet Volume 9.7 fL (9.1-12.4); NEUTROPHILS ABSOLUTE AUTO 7.94 K/mm3 (1.96-9.15); NEUTROPHILS PERCENT AUTO 85 % (41-73); Platelet Count 326 K/mm3 (150-400); RDW Coefficient Variation 12.5 % (11.7-14.2); RDW Standard Deviation 39.2 fL (35.1-46.3); Red Blood Cell Count 4.96 M/mm3 (4.30-5.90); White Blood Cell Count 9.37 K/mm3 (4.00-11.30)
[2023-12-11 10:32] LABS: Albumin, Blood 3.9 g/dL (3.4-5.0); Albumin/Globulin Ratio 1.3 (0.8-1.8); Bilirubin, Total 0.5 mg/dL (0.1-1.0); Bun/Creatinine Ratio 22.8 (12.0-20.0); Calcium, Blood 9.4 mg/dL (8.5-10.1); Creatinine, Blood 0.57 mg/dL (0.60-1.20); Globulin, Blood 3.1 g/dL (2.2-4.0); Potassium, Blood 3.9 mmol/L (3.5-5.5)
[2023-12-11] MEDS ORDERED: NOVOLOG100 UNIT/2 (11:47)
[2023-12-11] MEDS ORDERED: BASAGLAR K100 UNIT/1 (11:47)
[2023-12-11 12:11] LABS: Source, Urine Clean Catch
[2023-12-11 12:30] LABS: Appearance, Urine Clear (Clear); Bilirubin, Urine Neg (Neg); Blood, Urine Neg (Neg); Color, Urine Yellow (P-Yellow); Glucose Qualitative, Urine 4+ (Neg); Ketones, Urine 4+ (Neg); Leukocyte Esterase, Urine Neg (Neg); Nitrite, Urine Neg (Neg); Protein, Urine Neg (Neg); Urobilinogen, Urine NORM (Normal)
[2023-12-11] MEDS ORDERED: PROM12.5S PR (12:36)
[2023-12-11 13:35] VITALS: BP 163/95
== END 2023-12-11 13:38 | disposition home or self-care (01) ==
LOC: ER 09:04
PROVIDERS: Emergency Medicine
DX: R11.2 Nausea with vomiting, unspecified (principal); E86.0 Dehydration; E10.65 Type 1 diabetes mellitus with hyperglycemia; Z88.0 Allergy status to penicillin; Z88.8 Allergy status to other drugs, medicaments and biological substances; Z79.4 Long term (current) use of insulin; Z79.899 Other long term (current) drug therapy; F17.210 Nicotine dependence, cigarettes, uncomplicated
CPT/HCPCS: 80053; 81003; 82803; 85025; 96361; 96374; 96375; 99284-25; J1790; J7030

== ENCOUNTER 2023-12-14 03:17 | Emergency (ER) | payer OTHER ==
[~2023-12-14] VITALS: Ht 175.3 cm; Wt 95.2 kg
[~2023-12-14 03:17] MED LIST changes: +BASAGLAR K100 UNIT/1; +NOVOLOG100 UNIT/2
[2023-12-14 03:52] LABS: BASOPHILS ABSOLUTE AUTO 0.03 K/mm3 (0.00-0.23); BASOPHILS PERCENT AUTO 0 % (0-2); EOSINOPHILS PERCENT AUTO 0 % (0-6); Hematocrit 48.3 % (37.0-53.0); Hemoglobin 16.7 g/dL (13.5-17.5); IMMATURE GRAN ABSOLUTE AUTO 0.09 K/mm3 (0.00-0.10); IMMATURE GRAN PERCENT AUTO 1 % (0-1); LYMPHOCYTES ABSOLUTE AUTO 1.34 K/mm3 (0.84-5.20); LYMPHOCYTES PERCENT AUTO 7 % (21-46); MONOCYTES ABSOLUTE AUTO 0.99 K/mm3 (0.16-1.47); MONOCYTES PERCENT AUTO 5 % (4-13); Mean Corpuscular HGB 28.9 pg (26.0-34.0); Mean Corpuscular HGB Conc 34.6 g/dL (31.5-36.5); Mean Corpuscular Volume 84 fL (80-100); Mean Platelet Volume 9.8 fL (9.1-12.4); NEUTROPHILS ABSOLUTE AUTO 17.04 K/mm3 (1.96-9.15); NEUTROPHILS PERCENT AUTO 87 % (41-73); Platelet Count 403 K/mm3 (150-400); RDW Coefficient Variation 12.3 % (11.7-14.2); RDW Standard Deviation 37.3 fL (35.1-46.3); Red Blood Cell Count 5.77 M/mm3 (4.30-5.90); White Blood Cell Count 19.49 K/mm3 (4.00-11.30)
[2023-12-14 04:14] LABS: Albumin, Blood 4.5 g/dL (3.4-5.0); Albumin/Globulin Ratio 1.2 (0.8-1.8); Bilirubin, Total 1.9 mg/dL (0.1-1.0); Calcium, Blood 10.2 mg/dL (8.5-10.1); Creatinine, Blood 0.73 mg/dL (0.60-1.20); Globulin, Blood 3.8 g/dL (2.2-4.0); Potassium, Blood 2.9 mmol/L (3.5-5.5); Total Protein, Blood 8.3 g/dL (6.4-8.2)
[2023-12-14] MEDS ORDERED: Haloperidol Lactate Inj. 5 MG/ML Injection IV ONE (04:20)
[2023-12-14] MEDS ORDERED: NS 1,000 ML IV SCH (04:20)
[2023-12-14] MEDS ORDERED: Potassium Chloride 40 MEQ in NS 250 ML IV ONE (04:40)
[2023-12-14] MEDS ORDERED: Ondansetron HCl 2 MG / ML 2ML Vial IV ONE (05:05)
[2023-12-14] MEDS ORDERED: Mag Hydrox/AL Hydrox/Simeth 30 ML UDC PO ONE (06:25)
[2023-12-14] MEDS ORDERED: ONDA4ODT MM (06:26)
[2023-12-14] MEDS ORDERED: Potassium Chloride 20 MEQ/15 ML UDC PO ONE (07:05)
[2023-12-14 07:12] VITALS: BP 143/80
== END 2023-12-14 07:38 | disposition home or self-care (01) ==
LOC: ER 03:17
PROVIDERS: Emergency Medicine
DX: R11.2 Nausea with vomiting, unspecified (principal); E86.0 Dehydration; E10.65 Type 1 diabetes mellitus with hyperglycemia; F15.90 Other stimulant use, unspecified, uncomplicated; E87.6 Hypokalemia; Z88.0 Allergy status to penicillin; Z88.6 Allergy status to analgesic agent; Z79.4 Long term (current) use of insulin; F17.200 Nicotine dependence, unspecified, uncomplicated
CPT/HCPCS: 80053; 83690; 85025; 96365; 96366; 96375; 99284-25; A9270; J1630; J2405; J3480; J7030; J7050

== ENCOUNTER 2023-12-18 10:58 | Emergency (ER) | payer OTHER ==
[~2023-12-18] VITALS: Ht 175.3 cm; Wt 88.5 kg
[2023-12-18 11:03] VITALS: BP 136/98
[2023-12-19] MEDS ORDERED: INSULANI SC (20:25)
== END 2023-12-18 13:34 | disposition left against medical advice (07) ==
LOC: ER 10:58
DX: R11.2 Nausea with vomiting, unspecified (principal); Z53.21 Procedure and treatment not carried out due to patient leaving prior to being seen by health care provider

== ENCOUNTER 2023-12-19 20:11 | Emergency (ER) | payer OTHER ==
[~2023-12-19] VITALS: Ht 175.3 cm; Wt 90.7 kg
[2023-12-19] MEDS ORDERED: INSULANI SC (20:25)
[2023-12-19 20:59] LABS: BASOPHILS ABSOLUTE AUTO 0.03 K/mm3 (0.00-0.23); BASOPHILS PERCENT AUTO 0 % (0-2); EOSINOPHILS ABSOLUTE AUTO 0.01 K/mm3 (0.00-0.68); EOSINOPHILS PERCENT AUTO 0 % (0-6); Hematocrit 49.5 % (37.0-53.0); Hemoglobin 17.9 g/dL (13.5-17.5); IMMATURE GRAN ABSOLUTE AUTO 0.11 K/mm3 (0.00-0.10); IMMATURE GRAN PERCENT AUTO 1 % (0-1); LYMPHOCYTES ABSOLUTE AUTO 1.66 K/mm3 (0.84-5.20); LYMPHOCYTES PERCENT AUTO 9 % (21-46); MONOCYTES ABSOLUTE AUTO 1.59 K/mm3 (0.16-1.47); MONOCYTES PERCENT AUTO 9 % (4-13); Mean Corpuscular HGB 29.1 pg (26.0-34.0); Mean Corpuscular HGB Conc 36.2 g/dL (31.5-36.5); Mean Corpuscular Volume 80 fL (80-100); Mean Platelet Volume 10.7 fL (9.1-12.4); NEUTROPHILS ABSOLUTE AUTO 14.62 K/mm3 (1.96-9.15); NEUTROPHILS PERCENT AUTO 81 % (41-73); Platelet Count 412 K/mm3 (150-400); RDW Coefficient Variation 12.1 % (11.7-14.2); RDW Standard Deviation 34.8 fL (35.1-46.3); Red Blood Cell Count 6.16 M/mm3 (4.30-5.90); White Blood Cell Count 18.02 K/mm3 (4.00-11.30)
[2023-12-19 21:25] LABS: Magnesium, Blood 2.2 mg/dL (1.6-2.4)
[2023-12-19 21:32] LABS: Albumin, Blood 4.4 g/dL (3.4-5.0); Albumin/Globulin Ratio 1.3 (0.8-1.8); Bilirubin, Total 2.7 mg/dL (0.1-1.0); Bun/Creatinine Ratio 40.7 (12.0-20.0); Calcium, Blood 10.2 mg/dL (8.5-10.1); Creatinine, Blood 1.13 mg/dL (0.60-1.20); Globulin, Blood 3.4 g/dL (2.2-4.0); Potassium, Blood 2.3 mmol/L (3.5-5.5); Total Protein, Blood 7.8 g/dL (6.4-8.2)
[2023-12-19] MEDS ORDERED: Potassium Chl 20MEQ/Water100ML 100 ML IV ONE (21:40)
[2023-12-19] MEDS ORDERED: Potassium Chloride 20 MEQ TabCR PO ONE (21:40)
[2023-12-19] MEDS ORDERED: Lactated Ringer's 1,000 ML IV ONE (21:40)
[2023-12-19 21:42] LABS: Source, Urine Clean Catch
[2023-12-19 21:45] LABS: Appearance, Urine Clear (Clear); Bilirubin, Urine Neg (Neg); Blood, Urine Neg (Neg); Color, Urine Yellow (P-Yellow); Glucose Qualitative, Urine 3+ (Neg); Ketones, Urine 1+ (Neg); Leukocyte Esterase, Urine Neg (Neg); Nitrite, Urine Neg (Neg); Protein, Urine 1+ (Neg); Urobilinogen, Urine NORM (Normal)
[2023-12-19 21:55] LABS: Phosphorus, Blood 3.8 mg/dL (2.5-4.9)
[2023-12-19 23:16] LABS: Bicarbonate Venous 51.6 mmol/L (24.0-30.0); PCO2 Venous 50.8 mmHg (38-42)
[2023-12-19 23:17] LABS: Base Excess Venous 30.3 mmol/L; pH Blood Venous 7.62 (7.34-7.37)
[2023-12-19] MEDS ORDERED: Haloperidol Lactate Inj. 5 MG/ML Injection IV ONE ×2 (23:20→23:50)
[2023-12-19] MEDS ORDERED: Ondansetron HCl 2 MG / ML 2ML Vial IV ONE (23:50)
[2023-12-20 00:22] LABS: Influenza A, PCR NEGATIVE (NEGATIVE); Influenza B, PCR NEGATIVE (NEGATIVE); Resp Syncytial Virus, PCR NEGATIVE (NEGATIVE); SARS-Cov-2 (COVID-19) PCR, MMC NEGATIVE (NEGATIVE)
[2023-12-20] MEDS ORDERED: Metoclopramide HCl 5MG / ML 2ML Vial IV ONE (02:40)
[2023-12-20 03:12] LABS: Albumin, Blood 3.7 g/dL (3.4-5.0); Albumin/Globulin Ratio 1.2 (0.8-1.8); Bilirubin, Total 2.9 mg/dL (0.1-1.0); Calcium, Blood 9.1 mg/dL (8.5-10.1); Creatinine, Blood 0.87 mg/dL (0.60-1.20); Globulin, Blood 3.1 g/dL (2.2-4.0); Total Protein, Blood 6.8 g/dL (6.4-8.2)
[2023-12-20 03:30] VITALS: BP 162/77
[2023-12-20] MEDS ORDERED: METO5A PO (03:45)
== END 2023-12-20 04:14 | disposition home or self-care (01) ==
LOC: ER 20:11
PROVIDERS: Emergency Medicine; Physician Assistant
DX: E86.0 Dehydration (principal); R11.2 Nausea with vomiting, unspecified; E87.6 Hypokalemia; E10.65 Type 1 diabetes mellitus with hyperglycemia; F31.9 Bipolar disorder, unspecified; F17.200 Nicotine dependence, unspecified, uncomplicated; Z88.0 Allergy status to penicillin; Z88.6 Allergy status to analgesic agent
CPT/HCPCS: 0241U; 71046; 80053; 82010; 82803; 82947; 83735; 84100; 85025; 93005; 93010; 96365; 96366; 96375; 99284-25; A9270; J1630; J2405; J2765; J3480; J7120

== ENCOUNTER 2024-04-23 15:59 | Observation (INO) | payer OTHER ==
[~2024-04-23] VITALS: Ht 175.3 cm; Wt 81.1 kg
[~2024-04-23 15:59] MED LIST changes: +HALO5; +HUMULIN R100 UNIT/2 IM; +INSULANI SC; +METO5A PO; -NOVOLOG100 UNIT/2; +PANT40 PO; +PROMETHAZINE12.5 M1 PO
[2024-04-23] MEDS ORDERED: Ondansetron HCl 2 MG / ML 2ML Vial IV ONE (16:25)
[2024-04-23] MEDS ORDERED: NS 1,000 ML IV SCH ×4 (16:25→20:05)
[2024-04-23 17:05] LABS: BASOPHILS ABSOLUTE AUTO 0.03 K/mm3 (0.00-0.23); BASOPHILS PERCENT AUTO 0 % (0-2); EOSINOPHILS PERCENT AUTO 0 % (0-6); Hematocrit 46.4 % (37.0-53.0); Hemoglobin 15.8 g/dL (13.5-17.5); IMMATURE GRAN ABSOLUTE AUTO 0.07 K/mm3 (0.00-0.10); IMMATURE GRAN PERCENT AUTO 0 % (0-1); LYMPHOCYTES ABSOLUTE AUTO 1.59 K/mm3 (0.84-5.20); LYMPHOCYTES PERCENT AUTO 8 % (21-46); MONOCYTES ABSOLUTE AUTO 1.09 K/mm3 (0.16-1.47); MONOCYTES PERCENT AUTO 6 % (4-13); Mean Corpuscular HGB 28.6 pg (26.0-34.0); Mean Corpuscular HGB Conc 34.1 g/dL (31.5-36.5); Mean Corpuscular Volume 84 fL (80-100); Mean Platelet Volume 9.7 fL (9.1-12.4); NEUTROPHILS ABSOLUTE AUTO 16.59 K/mm3 (1.96-9.15); NEUTROPHILS PERCENT AUTO 86 % (41-73); Platelet Count 455 K/mm3 (150-400); RDW Coefficient Variation 13.4 % (11.7-14.2); RDW Standard Deviation 41.2 fL (35.1-46.3); Red Blood Cell Count 5.53 M/mm3 (4.30-5.90); White Blood Cell Count 19.37 K/mm3 (4.00-11.30)
[2024-04-23 17:32] LABS: Albumin, Blood 4.6 g/dL (3.4-5.0); Albumin/Globulin Ratio 1.2 (0.8-1.8); Beta-hydroxybutyrate 11.3 mg/dL (0.2-2.8); Bilirubin, Total 1.2 mg/dL (0.1-1.0); Bun/Creatinine Ratio 25.9 (12.0-20.0); Calcium, Blood 10.2 mg/dL (8.5-10.1); Creatinine, Blood 0.93 mg/dL (0.60-1.20); Potassium, Blood 2.6 mmol/L (3.5-5.5); Total Protein, Blood 8.6 g/dL (6.4-8.2)
[2024-04-23] MEDS ORDERED: Droperidol 5 mg/2 ml Vial IV ONE (18:00)
[2024-04-23] MEDS ORDERED: Potassium Chl 20MEQ/Water100ML 100 ML IV SCH (18:05)
[2024-04-23] MEDS ORDERED: Potassium Chloride 20 MEQ/15 ML UDC PO ONE (20:05)
[2024-04-23] MEDS ORDERED: Metoclopramide HCl 5MG / ML 2ML Vial IV PRN (20:10)
[2024-04-23] MEDS ORDERED: Ondansetron HCl 2 MG / ML 2ML Vial IV PRN (20:10)
[2024-04-23] MEDS ORDERED: Metoclopramide HCl 5MG / ML 2ML Vial IV ONE (21:00)
[2024-04-23] MEDS ORDERED: Insulin Glargine-Yfgn 100 Unit/mL 3 ML SYR SC SCH (21:00)
[2024-04-23 21:15] VITALS: BP 141/73
[2024-04-24] MEDS ORDERED: Insulin Human Lispro 100 Units/ML 3ML Syringe SC SCH
[2024-04-24 02:56] VITALS: BP 145/80
[2024-04-24 06:15] LABS: Hematocrit 37.7 % (37.0-53.0); Hemoglobin 12.8 g/dL (13.5-17.5); Mean Corpuscular HGB 28.5 pg (26.0-34.0); Mean Corpuscular Volume 84 fL (80-100); Mean Platelet Volume 9.9 fL (9.1-12.4); Platelet Count 340 K/mm3 (150-400); RDW Coefficient Variation 13.2 % (11.7-14.2); Red Blood Cell Count 4.49 M/mm3 (4.30-5.90)
--- NOTE | 2024-04-24 06:34 | NUR ---
Patient arrived to room from ED around 2100, resting comfortably in bed despite nausea/vomiting. IV potassium tolerated well, NS @ 75 mL/hr infusing into right AC, tolerating well. Blood sugars trending Q6 hours, overnight 381 at time of arrival, 348 at midnight, and 83 at 0600, SQ insulin given as per eMAR, apple juice provided per request with 0600 blood sugar result. Patient cooperative with care but uncooperative with questions for admission process, assessment.
[2024-04-24 06:52] LABS: Bun/Creatinine Ratio 23.3 (12.0-20.0); Calcium, Blood 8.5 mg/dL (8.5-10.1); Creatinine, Blood 0.73 mg/dL (0.60-1.20); Potassium, Blood 2.8 mmol/L (3.5-5.5)
[2024-04-24] MEDS ORDERED: Potassium Chl 20MEQ/Water100ML 100 ML IV SCH (07:30)
[2024-04-24] MEDS ORDERED: NS 250 ML IV PRN (07:40)
[2024-04-24 07:49] VITALS: BP 148/96
[2024-04-24] MEDS ORDERED: Enoxaparin 40 MG/0.4 ML SYR SC SCH (09:00)
[2024-04-24] MEDS ORDERED: CALCIUM GLUC IN NACL, ISO-OSM 50 ML IV ONE (11:30)
--- NOTE | 2024-04-24 11:45 | NUR ---
NOTE: NOTIFIED PROVIDER OF DARK RED/BROWN VOMIT, MULTIPLE EPISODES. NO NEW ORDERS AT THIS TIME.
[2024-04-24] MEDS ORDERED: Pantoprazole Sodium 40 MG Injection IV SCH (13:00)
[2024-04-24] MEDS ORDERED: Haloperidol Lactate Inj. 5 MG/ML Injection IM ONE (15:00)
[2024-04-24 15:14] LABS: Hemoglobin 11.5 g/dL (13.5-17.5)
[2024-04-24 15:32] LABS: Calcium, Blood 8.1 mg/dL (8.5-10.1); Creatinine, Blood 0.67 mg/dL (0.60-1.20); Potassium, Blood 3.5 mmol/L (3.5-5.5)
--- NOTE | 2024-04-24 15:49 | NUR ---
SHIFT SUMMARY PT AOX4, INDEPENDENT INT HE ROOM. MULTIPLE EPISODES OF DARK BROWN EMESIS, PROVIDER AWARE. MEDICATED PER THE EMAR. TELE IN PLACE, NO EVENTS. NO CP OR PRESSURE. PT CALLS AND MAKES HIS NEEDS KNOWN. BED LOCKED AND IN THE LOWEST POSITION. CALL LIGHT WITHIN REACH, REPORT GIVEN TO THE NURSE THAT WILL RESUME CARE UNTIL SHIFT CHANGED.
[2024-04-24 16:02] VITALS: BP 143/76
--- NOTE | 2024-04-24 16:15 | NUR ---
ASSUMED CARE OF PT- PT SITTING UP IN BED APPEARS BRIGHT. STATES HE THINKS THE HALDOL MIGHT BE HELPING A LITTLE.
[2024-04-24] MEDS ORDERED: Haloperidol Lactate Inj. 5 MG/ML Injection IM PRN (16:20)
[2024-04-24] MEDS ORDERED: Pantoprazole Sodium 20 MG Tab PO SCH (16:30)
--- NOTE | 2024-04-24 16:45 | NUR ---
PT VOMITED- CARDIOGRAPHER THAT HAS HAD THIS PT T/O THE SHIFT AND HAS SEEN HIS EMESIS PREVIOUSLY CAME TO THIS RN AND STATED SHE JUST DUMPED THE PT EMESIS BAG. SHE STATES THE EMESIS HAS BEEN LIKE [place] T/O THE DAY BUT THIS TIME IT WAS DARK AND THICK AND HAD THE APPEARANCE OF BLOOD. SHE STATED WHEN SHE DUMPED IT IN THE TOILET IT HAD THE APPEARANCE OF BLOOD. CALLED DR TRAORE TO LET HER KNOW ABOUT THE BLOODY EMESIS. PT HAS HAD HIS HGB RECHECKED AT 1500. AWARE AND IS CALLING TO SPEAK TO DR KITCHEN ABOUT A POSSIBLE SCOPE.
[2024-04-24 17:42] VITALS: BP 131/79
--- NOTE | 2024-04-24 18:03 | NUR ---
RECIEVED UPDATE FROM MELANGEUR OPERATOR- PT HAS COBRA TRANSFER ORDERS TO TRANSFER TO [facility]. POSSIBLE BED ASSIGNMENT SOON. GI IS AVAILABLE THERE.
--- NOTE | 2024-04-24 19:29 | NUR ---
SHIFT SUMMARY- PT ALERT AND ORIENTED, INDEPENDENT IN THE ROOM. MOTHER AND FATHER AT THE BEDSIDE. TELEPHONE REPORT COMPLETED WITH ROGE SAHU AT [facility]. PT IS COBRA TRANSFERING THERE TO ROOM 376 FOR GI NEEDS. FAMILY AND PT ARE AWARE. SECOND IV PLACED PER REQUEST OF RECIEVING FACILITY. PT IN BED CALL LIGHT IN REACH PLAN TO TRANSFER SOON TRANSPORT IS ARRANGED.
[2024-04-24 19:59] VITALS: BP 140/79
[2024-04-24 20:07] LABS: Hemoglobin 10.6 g/dL (13.5-17.5)
[2024-04-24 20:12] VITALS: BP 140/79
--- NOTE | 2024-04-24 22:00 | NUR ---
PATIENT COBRA TRANSFER VIA [facility] TO [facility]. FLUIDS AND TELEMETRY DC'D. PERSONAL BELONGINGS WITH PATIENT. COOPERATIVE WITH TRANSFER.
== END 2024-04-24 22:00 | disposition short-term general hospital (02) ==
LOC: ER 15:59 → MEDS 16:00
PROVIDERS: Internal Medicine; Nurse Practitioner Acute Care; Physician Assistant; Student in an Organized Health Care Education/Training Program; ADMIT Internal Medicine
DX: E87.6 Hypokalemia (principal); E87.1 Hypo-osmolality and hyponatremia; E83.52 Hypercalcemia; K92.0 Hematemesis; R65.10 Systemic inflammatory response syndrome (SIRS) of non-infectious origin without acute organ dysfunction; E86.0 Dehydration; E10.65 Type 1 diabetes mellitus with hyperglycemia; E87.8 Other disorders of electrolyte and fluid balance, not elsewhere classified; F12.90 Cannabis use, unspecified, uncomplicated; F31.9 Bipolar disorder, unspecified; F17.210 Nicotine dependence, cigarettes, uncomplicated; Z88.6 Allergy status to analgesic agent; Z88.0 Allergy status to penicillin; Z79.4 Long term (current) use of insulin
CPT/HCPCS: 36415; 80048; 80053; 82010; 82330; 82947; 83735; 85014; 85018; 85025; 85027; 93005; 93010; 96361; 96365; 96366; 96372; 96375; 96376; 99285-25; A9270; C9113; G0378; J0612; J1630; J1650; J1790; J1815; J2405; J2765; J3480; J7030; J7050

== ENCOUNTER 2024-05-23 11:28 | Observation (INO) | payer OTHER ==
[2024-05-23] VITALS (20 sets, daily range): BP systolic 93–149; BP diastolic 45–91
[~2024-05-23] VITALS: Ht 175.3 cm; Wt 83.7 kg
[2024-05-23 12:29] LABS: Base Excess Venous -5.8 mmol/L; Bicarbonate Venous 20.3 mmol/L (24.0-30.0); PCO2 Venous 32.9 mmHg (38-42); pH Blood Venous 7.38 (7.34-7.37)
[2024-05-23 12:36] LABS: BASOPHILS ABSOLUTE AUTO 0.05 K/mm3 (0.00-0.23); BASOPHILS PERCENT AUTO 0 % (0-2); EOSINOPHILS ABSOLUTE AUTO 0.01 K/mm3 (0.00-0.68); EOSINOPHILS PERCENT AUTO 0 % (0-6); Hematocrit 41.7 % (37.0-53.0); IMMATURE GRAN ABSOLUTE AUTO 0.07 K/mm3 (0.00-0.10); IMMATURE GRAN PERCENT AUTO 1 % (0-1); LYMPHOCYTES ABSOLUTE AUTO 0.83 K/mm3 (0.84-5.20); LYMPHOCYTES PERCENT AUTO 6 % (21-46); MONOCYTES ABSOLUTE AUTO 0.34 K/mm3 (0.16-1.47); MONOCYTES PERCENT AUTO 2 % (4-13); Mean Corpuscular HGB 27.3 pg (26.0-34.0); Mean Corpuscular HGB Conc 31.2 g/dL (31.5-36.5); Mean Corpuscular Volume 87 fL (80-100); Mean Platelet Volume 10.2 fL (9.1-12.4); NEUTROPHILS ABSOLUTE AUTO 12.86 K/mm3 (1.96-9.15); NEUTROPHILS PERCENT AUTO 91 % (41-73); Platelet Count 381 K/mm3 (150-400); RDW Coefficient Variation 13.2 % (11.7-14.2); RDW Standard Deviation 41.8 fL (35.1-46.3); Red Blood Cell Count 4.77 M/mm3 (4.30-5.90); White Blood Cell Count 14.16 K/mm3 (4.00-11.30)
[2024-05-23 13:10] LABS: Albumin/Globulin Ratio 1.1 (0.8-1.8); Bilirubin, Total 1.5 mg/dL (0.1-1.0); Bun/Creatinine Ratio 25.4 (12.0-20.0); Calcium, Blood 9.4 mg/dL (8.5-10.1); Creatinine, Blood 0.75 mg/dL (0.60-1.20); Globulin, Blood 3.6 g/dL (2.2-4.0); Potassium, Blood 4.8 mmol/L (3.5-5.5); Total Protein, Blood 7.6 g/dL (6.4-8.2)
[2024-05-23] MEDS ORDERED: NS 1,000 ML IV SCH ×2 (13:10→14:55)
[2024-05-23] MEDS ORDERED: Pantoprazole Sodium 40 MG Injection IV ONE (13:25)
[2024-05-23] MEDS ORDERED: Metoclopramide HCl 5MG / ML 2ML Vial IV ONE (13:25)
[2024-05-23] MEDS ORDERED: Insulin Human Regular 100 UNIT in NS 100 ML IV SCH (13:30)
[2024-05-23 13:53] LABS: Source, Urine Clean Catch
[2024-05-23] MEDS ORDERED: Haloperidol Lactate Inj. 5 MG/ML Injection IV ONE (14:00)
[2024-05-23 14:01] LABS: Appearance, Urine Clear (Clear); Bilirubin, Urine Neg (Neg); Blood, Urine Neg (Neg); Color, Urine Yellow (P-Yellow); Glucose Qualitative, Urine 4+ (Neg); Ketones, Urine 4+ (Neg); Leukocyte Esterase, Urine Neg (Neg); Nitrite, Urine Neg (Neg); Protein, Urine Neg (Neg); Specific Gravity, Urine 1.015 (1.003-1.022); Urobilinogen, Urine NORM (Normal)
[2024-05-23] MEDS ORDERED: Acetaminophen 325 MG TABLET PO PRN (14:55)
--- NOTE | 2024-05-23 17:30 | NUR ---
PT ADMITTED TO ICU 1 FROM ER. COMES WITH INSULIN GTT AT 8.7 UNITS/HR. STARTED IVF PER ORDERS. PT IS A/O X4, FLAT AFFECT, TIRED. TRANSFERS SELF TO BED.
[2024-05-23] MEDS ORDERED: NOVOLOG100 UNIT/2 (17:34)
[2024-05-23 17:41] LABS: Bun/Creatinine Ratio 25.5 (12.0-20.0); Calcium, Blood 8.2 mg/dL (8.5-10.1); Creatinine, Blood 0.86 mg/dL (0.60-1.20); Potassium, Blood 5.7 mmol/L (3.5-5.5)
[2024-05-23] MEDS ORDERED: Sodium Chloride 0.45% 1,000 ML IV SCH (17:55)
[2024-05-23 18:20] LABS: Glucose, Blood 543 mg/dL (70-99)
[2024-05-23] MEDS ORDERED: D5W-1/2NS 1,000 ML IV SCH (20:25)
[2024-05-23 22:00] LABS: Calcium, Blood 8.3 mg/dL (8.5-10.1); Creatinine, Blood 0.77 mg/dL (0.60-1.20)
[2024-05-24] VITALS (37 sets, daily range): BP systolic 99–153; BP diastolic 45–124
[2024-05-24 02:19] LABS: Bun/Creatinine Ratio 19.8 (12.0-20.0); Calcium, Blood 8.2 mg/dL (8.5-10.1); Creatinine, Blood 0.76 mg/dL (0.60-1.20); Potassium, Blood 3.6 mmol/L (3.5-5.5)
[2024-05-24] MEDS ORDERED: Ondansetron HCl 2 MG / ML 2ML Vial IV PRN (05:55)
[2024-05-24] MEDS ORDERED: Pantoprazole Sodium 40 MG Injection IV SCH (06:00)
[2024-05-24 06:09] LABS: Bun/Creatinine Ratio 19.5 (12.0-20.0); Calcium, Blood 8.4 mg/dL (8.5-10.1); Creatinine, Blood 0.67 mg/dL (0.60-1.20); Potassium, Blood 3.5 mmol/L (3.5-5.5)
--- NOTE | 2024-05-24 06:36 | NUR ---
SHIFT SUMMARY PATIENT ALERT AND ORIENTED X4. SP02 98% ON RA, DENIES SOB, AT START OF SHIFT KUSSMAUL BREATHING, BREATHING NOW REGULAR. HR SR 90s, BP STABLE, DENIES CP/PRESSURE. INSULIN DRIP REMAINS INFUSING WITH D5 1/2 NS. NAUSEA MEDICATIONS GIVEN PRN PER EMAR. PATIENT INDEPENDENT WITH REPOSITIONING AND USING URINAL. CALL LIGHT IN REACH
[2024-05-24] MEDS ORDERED: Enoxaparin 40 MG/0.4 ML SYR SC SCH (09:00)
[2024-05-24 10:06] LABS: Bun/Creatinine Ratio 14.9 (12.0-20.0); Calcium, Blood 8.4 mg/dL (8.5-10.1); Creatinine, Blood 0.67 mg/dL (0.60-1.20); Potassium, Blood 3.4 mmol/L (3.5-5.5)
[2024-05-24] MEDS ORDERED: Insulin Glargine-Yfgn 100 Unit/mL 3 ML SYR SC SCH (12:00)
[2024-05-24 14:01] LABS: Bun/Creatinine Ratio 15.1 (12.0-20.0); Creatinine, Blood 0.6 mg/dL (0.60-1.20); Potassium, Blood 3.6 mmol/L (3.5-5.5)
--- NOTE | 2024-05-24 15:53 | NUR ---
ASSUMPTION OF CARE NOTE: PATIENT ARRIVES TO ROOM AT 1407 VIA WHEELCHAIR FROM ICU c DX'S OF DKA. PATIENT TRANSFERRED TO BED INDEPENDENTLY. VITAL SIGNS TAKEN. PATIENT ORIENTATED TO ROOM AND CALL SYSTEM. PATIENT A/OX4, FLAT AFFECT AND ANSWER TO QUESTIONS APPROPRIATELY. PATIENT DENIES N/V, CP/PRESSURE, SOB AND DIZZINESS. PATIENT ON CONS CARB DIET c CBG AC/HS. PATIENT PROVIDED c FRESH ICE H20. PATIENT HAS PIV TO R HAND AND LAC SL. CALL LIGHT IN REACH.
[2024-05-24] MEDS ORDERED: Insulin Human Lispro 100 Units/ML 3ML Syringe SC SCH (16:30)
[2024-05-24 16:33] LABS: Bun/Creatinine Ratio 10.9 (12.0-20.0); Calcium, Blood 8.3 mg/dL (8.5-10.1); Creatinine, Blood 0.64 mg/dL (0.60-1.20); Potassium, Blood 3.6 mmol/L (3.5-5.5)
--- NOTE | 2024-05-24 16:45 | NUR ---
NOTE: PATIENT REPORTS NAUSEOUS, OFFERED ZOFRAN, BUT DECLINED. PATIENT STATED "IT DOES NOT WORK FOR ME. I NEED HALDOL AND I NEED ALSO SOMETHING FOR HEARTBURN." NOTIFIED DR. MISTI juan PATIENT REQUEST, RECEIVED ORDER TO GIVE HALDOL 2 MG PO Q6 PRN, PEPCID 20 MG PO BID AND OT DOSE NOW.
[2024-05-24] MEDS ORDERED: Famotidine 20 MG Tab PO ONE (16:55)
[2024-05-24] MEDS ORDERED: Haloperidol 1 MG Tab PO PRN (16:55)
[2024-05-24] MEDS ORDERED: Famotidine 20 MG Tab PO SCH (21:00)
[2024-05-25 04:21] VITALS: BP 156/103
[2024-05-25 05:07] LABS: Bun/Creatinine Ratio 9.7 (12.0-20.0); Calcium, Blood 8.4 mg/dL (8.5-10.1); Creatinine, Blood 0.62 mg/dL (0.60-1.20); Potassium, Blood 3.6 mmol/L (3.5-5.5)
--- NOTE | 2024-05-25 05:41 | NUR ---
SHIFT SUMMARY: HAD ONE EPISODE OF EMESIS THIS MORNING; MEDICATED WITH ZOFRAN, WHICH HE STATED DOES NOT WORK FOR HIM. TAKES REGLAN AT HOME. CBG AT WAS 183. INDEPENDENT IN ROOM, TOOK A SHOWER LAST NIGHT. DENIED PAIN.
[2024-05-25 08:00] VITALS: BP 162/99
--- NOTE | 2024-05-25 13:00 | NUR ---
SHIFT/DISCHARGE SUMMARY: PATIENT A/OX4, FLAT AFFECT AND COOPERATIVE c CARE. PATIENT REPORTS N/V AT BEGINNING OF SHIFT, MEDICATED c EMAR PRN NAUSEA MEDS c GOOD EFFECT. PATIENT CBG BEFORE BREAKFAST 337, BEFORE LUNCH 150, MEDICATED c INSULIN PER EMAR SLIDING SCALE. PATIENT DENIES CP/PRESSURE, SOB AND DIZZINESS. PATIENT HAS POOR APPETITE, INDEPENDENT IN ROOM/BATHROOM T/O SHIFT. PATIENT REQUESTED TO GO HOME FIRST THIS AM. DR. CHAPPELL NOTIFIED c PATIENT REQUEST. PATIENT HAD SHOWER/LINEN CHANGED. PIV DC'D BY JESSICA. PATIENT DISCHARGE HOME. DISCHARGE INSTRUCTIONS PACKET GIVEN TO PATIENT. EDUCATE PATIENT REGARDING ADMITTING DX'S OF DKA, S/S, TX, SELF CARE, CHECKING BS AT HOME AND TO F/U c PCP. PATIENT VERBALIZED UNDERSTANDING AND NO FURTHER QUESTIONS AT THIS TIME. PATIENT HAS NO NEW MEDICATION ORDERED. ALL PATIENT PERSONAL BELONGINGS WERE SENT HOME c THE PATIENT. PATIENT DECLINED TO BE TRANSPORTED VIA WHEELCHAIR AND REQUESTED TO WALK BY HIMSELF. PATIENT LEFT THE ROOM AT 1236.
== END 2024-05-25 12:37 | disposition home or self-care (01) ==
LOC: ER 11:28 → ICUE 11:29 → MEDS 05-24 14:07
PROVIDERS: Physician Assistant; ADMIT Internal Medicine
DX: E10.10 Type 1 diabetes mellitus with ketoacidosis without coma (principal); F31.9 Bipolar disorder, unspecified; Z88.0 Allergy status to penicillin; Z88.6 Allergy status to analgesic agent
CPT/HCPCS: 36415; 80048; 80053; 81003; 82803; 82947; 83690; 83735; 85025; 94760; 96372; 96374; 96375; 96376; 99284-25; A9270; C9113; G0378; J1630; J1650; J1815; J2405; J2765; J7030; J7042

== ENCOUNTER 2024-10-24 06:38 | Observation (INO) | payer OTHER ==
[~2024-10-24] VITALS: Ht 177.8 cm; Wt 94.5 kg
[~2024-10-24 06:38] MED LIST changes: +NOVOLOG100 UNIT/2
[2024-10-24] MEDS ORDERED: Haloperidol Lactate Inj. 5 MG/ML Injection IV ONE (07:20)
[2024-10-24] MEDS ORDERED: Lactated Ringer's 2,000 ML IV SCH (07:20)
[2024-10-24 07:29] LABS: Bicarbonate Venous 26.4 mmol/L (24.0-30.0)
[2024-10-24 07:30] LABS: pH Blood Venous 7.57 (7.34-7.37)
[2024-10-24 07:32] LABS: BASOPHILS ABSOLUTE AUTO 0.04 K/mm3 (0.00-0.23); BASOPHILS PERCENT AUTO 1 % (0-2); EOSINOPHILS ABSOLUTE AUTO 0.21 K/mm3 (0.00-0.68); EOSINOPHILS PERCENT AUTO 2 % (0-6); Hematocrit 37.8 % (37.0-53.0); Hemoglobin 12.5 g/dL (13.5-17.5); IMMATURE GRAN ABSOLUTE AUTO 0.02 K/mm3 (0.00-0.10); IMMATURE GRAN PERCENT AUTO 0 % (0-1); LYMPHOCYTES ABSOLUTE AUTO 2.03 K/mm3 (0.84-5.20); LYMPHOCYTES PERCENT AUTO 23 % (21-46); MONOCYTES ABSOLUTE AUTO 0.54 K/mm3 (0.16-1.47); MONOCYTES PERCENT AUTO 6 % (4-13); Mean Corpuscular HGB 27.1 pg (26.0-34.0); Mean Corpuscular HGB Conc 33.1 g/dL (31.5-36.5); Mean Corpuscular Volume 82 fL (80-100); Mean Platelet Volume 9.7 fL (9.1-12.4); NEUTROPHILS ABSOLUTE AUTO 6.04 K/mm3 (1.96-9.15); NEUTROPHILS PERCENT AUTO 68 % (41-73); Platelet Count 313 K/mm3 (150-400); RDW Coefficient Variation 13.1 % (11.7-14.2); RDW Standard Deviation 38.9 fL (35.1-46.3); Red Blood Cell Count 4.61 M/mm3 (4.30-5.90); White Blood Cell Count 8.88 K/mm3 (4.00-11.30)
[2024-10-24 08:03] LABS: Albumin, Blood 3.5 g/dL (3.4-5.0); Albumin/Globulin Ratio 1.1 (0.8-1.8); Bilirubin, Total 0.5 mg/dL (0.1-1.0); Bun/Creatinine Ratio 16.7 (12.0-20.0); Calcium, Blood 9.4 mg/dL (8.5-10.1); Creatinine, Blood 0.72 mg/dL (0.60-1.20); Globulin, Blood 3.3 g/dL (2.2-4.0); Magnesium, Blood 1.9 mg/dL (1.6-2.4); Potassium, Blood 3.4 mmol/L (3.5-5.5); Total Protein, Blood 6.8 g/dL (6.4-8.2)
[2024-10-24 08:30] LABS: CORONAVIRUS COVID-19 AG Negative (NEGATIVE); INFLUENZA A AG Negative (NEGATIVE); INFLUENZA B AG Negative (NEGATIVE)
[2024-10-24] MEDS ORDERED: Ondansetron HCl 2 MG / ML 2ML Vial IV ONE (08:55)
[2024-10-24] MEDS ORDERED: Capsaicin 0.025% Cream TOP ONE (09:55)
[2024-10-24] MEDS ORDERED: DiphenhydrAMINE HCl 50 MG/ML 1ML Vial IV ONE (09:55)
[2024-10-24] MEDS ORDERED: Ondansetron HCl 2 MG / ML 2ML Vial IV PRN (12:10)
[2024-10-24] MEDS ORDERED: Prochlorperazine Edisylate 10 mg Vial IV PRN (12:10)
[2024-10-24] MEDS ORDERED: FLU VACC TS2024-25(6MOS UP)/PF 45 MCG/0.5 ML SYRINGE IM SCH (12:10)
[2024-10-24] MEDS ORDERED: NS 1,000 ML IV SCH (12:10)
[2024-10-24] MEDS ORDERED: Potassium Phosphate Dibasic 30 MM in Dextrose 5% 500 ML IV STA (12:23)
--- NOTE | 2024-10-24 15:14 | NUR ---
1510 ARRIVED TO ROOM FROM ER STOOD TO TRANSFER TO BED. VOMITED 200 ML DK BROWN EMESIS. VISITOR AT BEDSIDE
[2024-10-24] MEDS ORDERED: Insulin Human Lispro 100 Units/ML 3ML Syringe SC SCH (16:30)
[2024-10-24] MEDS ORDERED: Metoclopramide HCl 10 MG Tab PO SCH (16:30)
--- NOTE | 2024-10-24 16:35 | NUR ---
PATIENT'S CGM ALARMING. POC BLOOD SUGAR OBTAINED; 405. PATIENT LETHARGIC, BUT ABLE TO ANSWER QUESTIONS. PATIENT AFFECT ALREADY FLAT, HARD TO CONVERSATE/GET INFORMATION OUT OF PATIENT. CALL MADE TO DR. CASSIDY NOTIFYING HIM OF BLOOD SUGAR. PATIENT REPORTS THAT HE DID NOT TAKE HIS LONG ACTING INSULIN THIS MORNING; DR. CASSIDY NOTIFIED OF THAT WELL. ASKED PATIENT HOW MANY UNITS OF INSULIN HE NORMALLY TAKES FOR A BLOOD SUGAR OF 405 AND HE REPORTED [address] CASSIDY NOTIFIED. AWAITING NEW ORDERS.
[2024-10-24] MEDS ORDERED: Insulin Glargine-Yfgn 100 Unit/mL 3 ML SYR SC STA (16:36)
--- NOTE | 2024-10-24 17:09 | NUR ---
PER DR. CASSIDY'S ORDERS PATIENT TO RECEIVE 15 UNITS OF HUMALOG NOW AND 40 UNITS OF GLARGINE NOW.
[2024-10-24 19:34] VITALS: BP 160/91
--- NOTE | 2024-10-25 01:37 | NUR ---
I WENT TO CHECK ON PT WHO WAS REPORTING MORE NAUSEA AND NOTICED 2 EMESIS BAGS WITH BLACK VOMIT INSIDE. WHEN I DUMPED IT INTO THE TOILET IT LOOKED LIKE COFFEE GROUNDS AND I HAD IT CONFIRMED WITH ANOTHER NURSE WHO ALSO SAID IT WAS COFFEE GROUNDS. I CALLED THE HOSPITALIST AND HE SAID HE WOULD PUT IN SOME ORDERS FOR PT. THE PT'S ABDOMEN IS NOT DISTENDED AND BM'S ARE "NORMAL" PER PT.
[2024-10-25 01:56] LABS: Hematocrit 37.7 % (37.0-53.0); Hemoglobin 12.6 g/dL (13.5-17.5)
[2024-10-25] MEDS ORDERED: Pantoprazole Sodium 40 MG Injection IV ONE (02:00)
[2024-10-25 02:16] LABS: Bun/Creatinine Ratio 14.2 (12.0-20.0); Calcium, Blood 9.3 mg/dL (8.5-10.1); Creatinine, Blood 0.7 mg/dL (0.60-1.20); Potassium, Blood 3.4 mmol/L (3.5-5.5)
--- NOTE | 2024-10-25 03:43 | NUR ---
SHIFT SUMM: PT IS A 29 YO FULL CODE WHO WAS ADMITTED FOR HYPEREMESIS. PT HAS EXPERIENCED NAUSEA AND VOMITING THROUGHOUT THE SHIFT AND HAS HAD NOTHING TO EAT.PT IS A TYPE ONE DIABETIC WITH BS'S WNL THIS SHIFT SO FAR. PT HAS JAVIER ENGLE AT BEDSIDE W/PATIENT. PT HAS BEEN TAKING PRN NAUSEA MEDICATION THEY BECOME DUE AND CANNOT SEEM TO FIND ANY RELEIF. I WENT TO CHECK ON PT AND NOTICED BLACK COFFEE GROUND VOMIT IN EMESIS BAGS. I HAD A 2ND NURSE VERIFY THIS AND CALLED HOSPITALIST WHO ORDER 80MG OF PROTONIX, OCCULT LAB TEST, Q6 BS, H&H LABS AND CLEAR LIQUID DIET. OCCULT LAB TEST CAME BACK POSITIVE AND H&H WAS STABLE W/NO CHANGES. HOSPITALIST NOTIFIED AND WILL CONTINUE TO MONITOR. PT IS IRRITABLE AND FEELS AWFUL.CONTINUOUS NS RUNNING AT 150. PT HAS CALL LIGHT IN REACH.
[2024-10-25 04:49] VITALS: BP 133/88
[2024-10-25] MEDS ORDERED: Pantoprazole Sodium 40 MG Injection IV SCH (06:00)
[2024-10-25] MEDS ORDERED: Insulin Regular 100 UNIT/ML 10ML Vial SC SCH (06:00)
[2024-10-25 07:27] VITALS: BP 142/88
[2024-10-25] MEDS ORDERED: Insulin Human Lispro 100 Units/ML 3ML Syringe SC SCH (07:30)
[2024-10-25] MEDS ORDERED: Potassium Chloride 40 MEQ in NS 250 ML IV ONE (07:55)
[2024-10-25] MEDS ORDERED: Insulin Glargine-Yfgn 100 Unit/mL 3 ML SYR SC SCH ×3 (09:00)
[2024-10-25] MEDS ORDERED: Insulin Glargine-Yfgn 100 Unit/mL 3 ML SYR SC ONE (10:00)
[2024-10-25 12:29] LABS: Hematocrit 37.2 % (37.0-53.0); Hemoglobin 12.2 g/dL (13.5-17.5)
[2024-10-25 14:38] VITALS: BP 158/95
[2024-10-25] MEDS ORDERED: Pantoprazole Sodium 40 MG Tab PO SCH (16:30)
--- NOTE | 2024-10-25 18:32 | NUR ---
SHIFT SUMMARY PT A&OX4, VSS, AMB IND, TOLERATING PO, VOIDING, AND DENIED PAIN. NO EMESIS THIS SHIFT. BLOOD GLUCOSE THIS EVENING WAS 54. PT GIVEN APPLE JUICE AND BLOOD GLUCOSE RECHECK WAS 89. PT ASYMPTOMATIC. NO OTHER ACUTE CHANGES. CALL LIGHT WITHIN REACH AND PT ABLE TO MAKE NEEDS KNOWN.
[2024-10-25 21:19] VITALS: BP 154/97
[2024-10-25] MEDS ORDERED: Acetaminophen 500 MG Tab PO PRN (22:25)
--- NOTE | 2024-10-25 23:04 | NUR ---
NEW T-ORDER RECEIVED FROM ON-CALL HOSPITALIST DANNIELLE: TYLENOL PO 500MG Q4HRS PRN. ENTERED TO [facility] SEE EMAR. NO ADDITIONAL NEW ORDERS AT THIS TIME.
--- NOTE | 2024-10-26 03:54 | NUR ---
SHIFT SUMMARY @HS PT'S SO BY THE BEDSIDE. NEW ORDER RECEIVED FOR PO TYLENOL 500MG Q4HRS PRN. ADMINISERED FOR C/O FEVER AND CHILLS, T. 100.2 TEMPORAL. Q6HR CBG @MIDNIGHT: 62. PUDDING FOR A SNACK PROVIDED. COMPAZINE IV PRN ADMINISTERED FOR C/O NAUSEA WITH GOOD EFFECTIVNESS. NO EMESIS DURING THIS SHIFT. PT RESTING WELL T/O THE NIGHT HRS. NO ACUTE DISTRESS OR EVENTS DURING THIS SHIFT. BED AT THE LOWEST POSITION, CALL LIGHT WITHIN REACH. PT IS A&O X4, ABLE TO MAKE HIS NEEDS KNOWN.
[2024-10-26 05:43] LABS: Hematocrit 37.3 % (37.0-53.0); Hemoglobin 12.4 g/dL (13.5-17.5); Mean Corpuscular HGB 27.3 pg (26.0-34.0); Mean Corpuscular HGB Conc 33.2 g/dL (31.5-36.5); Mean Corpuscular Volume 82 fL (80-100); Platelet Count 312 K/mm3 (150-400); RDW Coefficient Variation 13.2 % (11.7-14.2); RDW Standard Deviation 39.3 fL (35.1-46.3); Red Blood Cell Count 4.55 M/mm3 (4.30-5.90)
[2024-10-26 06:12] LABS: Bun/Creatinine Ratio 10.3 (12.0-20.0); Calcium, Blood 9.4 mg/dL (8.5-10.1); Creatinine, Blood 0.68 mg/dL (0.60-1.20); Potassium, Blood 3.5 mmol/L (3.5-5.5)
[2024-10-26 06:21] VITALS: BP 154/97
[2024-10-26 07:48] VITALS: BP 128/76
--- NOTE | 2024-10-26 08:02 | NUR ---
ASSUMED CARE OF PATIENT. SLEEPING DURING REPORT.
[2024-10-26] MEDS ORDERED: Insulin Glargine-Yfgn 100 Unit/mL 3 ML SYR SC SCH (09:00)
[2024-10-26 14:59] VITALS: BP 138/78
--- NOTE | 2024-10-26 17:40 | NUR ---
END OF SHIFT SUMMARY: A&Ox4. PLEASANT AND COOPERATIVE WITH CARE. CALLS APPROPRIATELY AND IS ABLE TO ADVOCATE NEEDS EFFECTIVELY. INDEPENDENT IN ROOM. CONTINENT OF BOWEL AND BLADDER. MEDS WHOLE WITH FLUIDS. SOME VOMITING TODAY. NO NAUSEA THIS AFTERNOON. HAS NOT REQUESTED FURTHER IV ANTIEMETICS. UNABLE TO EAT ANYTHING OF YET. CONTINUES WITH LIQUID DIET. GIRLFRIEND AT BEDSIDE ALL DAY. BED IN LOWEST POSITION, CALL LIGHT WITHIN REACH, ALL NEEDS MET. REPORT TO ONCOMING NURSE.
[2024-10-26 20:20] VITALS: BP 165/96
--- NOTE | 2024-10-27 04:09 | NUR ---
SHIFT SUMMARY NO ACUTE EVENTS DURING THIS SHIFT. BG'S 78@HS, 57@MIDNIGHT. APPLE JUICE GIVEN AT MIDNIGHT TO THE PT. FIANCE BY THE BEDSIDE. PT IS A/O X4, ABLE TO MAKE HIS NEEDS KNOWN. BED AT THE LOWEST POSITION, CALL LIGHT WITHIN REACH.
[2024-10-27 05:29] VITALS: BP 146/100
[2024-10-27 07:28] VITALS: BP 154/92
[2024-10-27 08:37] LABS: Bun/Creatinine Ratio 11.5 (12.0-20.0); Calcium, Blood 9.3 mg/dL (8.5-10.1); Creatinine, Blood 0.7 mg/dL (0.60-1.20); Potassium, Blood 3.7 mmol/L (3.5-5.5)
[2024-10-27] MEDS ORDERED: Insulin Glargine-Yfgn 100 Unit/mL 3 ML SYR SC SCH (11:00)
[2024-10-27 15:33] VITALS: BP 140/88
[2024-10-27] MEDS ORDERED: PANT20 PO (15:37)
[2024-10-27] MEDS ORDERED: ONDA4ODT MM (15:38)
[2024-10-27] MEDS ORDERED: METO10 PO (15:38)
--- NOTE | 2024-10-27 15:48 | NUR ---
DISCHARGE SUMMARY: PT EDUCATED ON DISCHARGE INSTRUCTIONS AND MEDCIATIONS. PT V/U. ASSISTED PT WITH PACKING UP BELONGINGS. PT ESCORTED TO POV VIA WHEELCHAIR.
== END 2024-10-27 15:46 | disposition home or self-care (01) ==
LOC: ER 06:38 → MEDS 06:39
PROVIDERS: Student in an Organized Health Care Education/Training Program; ADMIT Internal Medicine
DX: R11.2 Nausea with vomiting, unspecified (principal); E87.6 Hypokalemia; E87.3 Alkalosis; R00.0 Tachycardia, unspecified; E10.649 Type 1 diabetes mellitus with hypoglycemia without coma; E10.10 Type 1 diabetes mellitus with ketoacidosis without coma; F17.210 Nicotine dependence, cigarettes, uncomplicated; Z88.0 Allergy status to penicillin; Z88.6 Allergy status to analgesic agent; Z79.4 Long term (current) use of insulin
CPT/HCPCS: 36415; 80048; 80053; 82271; 82803; 82947; 83735; 84100; 85014; 85018; 85025; 85027; 87428-QW; 93005; 93010; 96361; 96374; 96375; 96376; 99285-25; A9270; G0378; J0780; J1200; J1630; J1815; J2405; J2470; J3480; J7030; J7050; J7060; J7120

== ENCOUNTER 2024-12-21 15:52 | Emergency (ER) | payer OTHER ==
[~2024-12-21] VITALS: Ht 170.2 cm; Wt 90.7 kg
[~2024-12-21 15:52] MED LIST changes: +PANT20 PO
[2024-12-21 16:16] LABS: Hematocrit 38.2 % (37.0-53.0); Hemoglobin 12.7 g/dL (13.5-17.5); Mean Corpuscular HGB 26.6 pg (26.0-34.0); Mean Corpuscular HGB Conc 33.2 g/dL (31.5-36.5); Mean Corpuscular Volume 80 fL (80-100); Mean Platelet Volume 9.8 fL (9.1-12.4); Platelet Count 281 K/mm3 (150-400); RDW Coefficient Variation 12.8 % (11.7-14.2); RDW Standard Deviation 37.1 fL (35.1-46.3); Red Blood Cell Count 4.77 M/mm3 (4.30-5.90); White Blood Cell Count 8.89 K/mm3 (4.00-11.30)
[2024-12-21 16:24] LABS: CORONAVIRUS COVID-19 AG Negative (NEGATIVE); INFLUENZA A AG Negative (NEGATIVE); INFLUENZA B AG Negative (NEGATIVE)
[2024-12-21 16:34] LABS: BASOPHILS ABSOLUTE MAN 0.08 K/mm3 (0.00-0.23); BASOPHILS PERCENT MAN 1 % (0-2); EOSINOPHILS ABSOLUTE MAN 0.08 K/mm3 (0.00-0.68); EOSINOPHILS PERCENT MAN 1 % (0-6); LYMPHOCYTES ABSOLUTE MAN 1.77 K/mm3 (0.84-5.20); LYMPHOCYTES PERCENT MAN 20 % (21-46); MONOCYTES ABSOLUTE MAN 0.26 K/mm3 (0.16-1.47); MONOCYTES PERCENT MAN 3 % (4-13); NEUTROPHILS ABSOLUTE MAN 6.66 K/mm3 (1.96-9.15); SEG NEUTROPHILS PERCENT MAN 75 % (41-73); TOTAL CELLS COUNTED 100
[2024-12-21 16:37] LABS: Albumin, Blood 3.7 g/dL (3.4-5.0); Albumin/Globulin Ratio 1.1 (0.8-1.8); Bilirubin, Total 0.5 mg/dL (0.1-1.0); Bun/Creatinine Ratio 23.3 (12.0-20.0); Creatinine, Blood 0.82 mg/dL (0.60-1.20); Globulin, Blood 3.5 g/dL (2.2-4.0); Potassium, Blood 4.1 mmol/L (3.5-5.5); Total Protein, Blood 7.2 g/dL (6.4-8.2)
[2024-12-21 18:43] LABS: Source, Urine Voided
[2024-12-21 18:47] LABS: Appearance, Urine Clear (Clear); Bilirubin, Urine Neg (Neg); Blood, Urine 2+ (Neg); Color, Urine Yellow (P-Yellow); Glucose Qualitative, Urine 4+ (Neg); Ketones, Urine 4+ (Neg); Leukocyte Esterase, Urine Neg (Neg); Nitrite, Urine Neg (Neg); Protein, Urine 2+ (Neg); Specific Gravity, Urine 1.025 (1.003-1.022); Urobilinogen, Urine NORM (Normal)
[2024-12-21 18:54] LABS: Bacteria Rare /hpf; Red Blood Cells, Urine 0-2 /hpf (0-2); Squamous Epithelial Cells Rare /hpf (Few); White Blood Cells, Urine 0-2 /hpf (0-5)
[2024-12-21] MEDS ORDERED: NS 1,000 ML IV SCH (19:25)
[2024-12-21] MEDS ORDERED: Magnesium Sulf 2 GM/Water 50ML 50 ML IV ONE (20:00)
[2024-12-21] MEDS ORDERED: Valium5 MG PO (21:05)
[2024-12-21 21:37] VITALS: BP 130/74
[2024-12-27] MEDS ORDERED: HUMALOG KW100 UNIT/1 SC (16:24)
== END 2024-12-21 21:37 | disposition home or self-care (01) ==
LOC: ER 15:52
PROVIDERS: Emergency Medicine
DX: R25.2 Cramp and spasm (principal); E11.9 Type 2 diabetes mellitus without complications; F17.210 Nicotine dependence, cigarettes, uncomplicated; Z88.0 Allergy status to penicillin; Z88.6 Allergy status to analgesic agent; Z79.4 Long term (current) use of insulin; Z79.899 Other long term (current) drug therapy
CPT/HCPCS: 71045; 80053; 81001; 83735; 85025; 87428-QW; 96361; 96374; 99283-25; J3475; J7030

== ENCOUNTER → 2025-01-17 | Outpatient (CLI) | payer OTHER ==
[~2025-01-17] MED LIST changes: +BENADRYL25 M1 PO; +BENZ1 PO; +HUMALOG KW100 UNIT/1 SC; +PROC5 PO; +Valium5 MG PO
[2025-01-17 14:39] LABS: BASOPHILS ABSOLUTE AUTO 0.04 K/mm3 (0.00-0.23); BASOPHILS PERCENT AUTO 0 % (0-2); EOSINOPHILS ABSOLUTE AUTO 0.05 K/mm3 (0.00-0.68); EOSINOPHILS PERCENT AUTO 1 % (0-6); Hematocrit 39.3 % (37.0-53.0); Hemoglobin 12.9 g/dL (13.5-17.5); IMMATURE GRAN ABSOLUTE AUTO 0.02 K/mm3 (0.00-0.10); IMMATURE GRAN PERCENT AUTO 0 % (0-1); LYMPHOCYTES ABSOLUTE AUTO 1.95 K/mm3 (0.84-5.20); LYMPHOCYTES PERCENT AUTO 20 % (21-46); MONOCYTES PERCENT AUTO 4 % (4-13); Mean Corpuscular HGB 26.8 pg (26.0-34.0); Mean Corpuscular HGB Conc 32.8 g/dL (31.5-36.5); Mean Corpuscular Volume 82 fL (80-100); Mean Platelet Volume 9.7 fL (9.1-12.4); NEUTROPHILS ABSOLUTE AUTO 7.08 K/mm3 (1.96-9.15); NEUTROPHILS PERCENT AUTO 74 % (41-73); Platelet Count 337 K/mm3 (150-400); RDW Coefficient Variation 13.9 % (11.7-14.2); RDW Standard Deviation 41.1 fL (35.1-46.3); Red Blood Cell Count 4.81 M/mm3 (4.30-5.90); White Blood Cell Count 9.54 K/mm3 (4.00-11.30)
[2025-01-17 14:51] LABS: Albumin, Blood 3.7 g/dL (3.4-5.0); Albumin/Globulin Ratio 1.1 (0.8-1.8); Bun/Creatinine Ratio 20.3 (12.0-20.0); Calcium, Blood 9.3 mg/dL (8.5-10.1); Creatinine, Blood 0.69 mg/dL (0.60-1.20); Globulin, Blood 3.4 g/dL (2.2-4.0); Potassium, Blood 3.6 mmol/L (3.5-5.5); Total Protein, Blood 7.1 g/dL (6.4-8.2)
== END ==
LOC: LAB SHORT 12:35 → LAB 12:35
PROVIDERS: Nurse Practitioner Family
DX: R11.2 Nausea with vomiting, unspecified (principal)
CPT/HCPCS: 80053; 83690; 85025

== ENCOUNTER 2025-01-18 07:39 | Emergency (ER) | payer OTHER ==
[~2025-01-18] VITALS: Ht 175.3 cm; Wt 93.0 kg
[~2025-01-18 07:39] MED LIST changes: -BENADRYL25 M1 PO; -BENZ1 PO; -PROC5 PO
[2025-01-18 08:28] LABS: Base Excess Venous 5.8 mmol/L; Bicarbonate Venous 29.3 mmol/L (24.0-30.0); PCO2 Venous 37.5 mmHg (38-42)
[2025-01-18 08:34] LABS: BASOPHILS ABSOLUTE AUTO 0.02 K/mm3 (0.00-0.23); BASOPHILS PERCENT AUTO 0 % (0-2); EOSINOPHILS PERCENT AUTO 0 % (0-6); Hematocrit 40.1 % (37.0-53.0); Hemoglobin 13.5 g/dL (13.5-17.5); IMMATURE GRAN ABSOLUTE AUTO 0.03 K/mm3 (0.00-0.10); IMMATURE GRAN PERCENT AUTO 0 % (0-1); LYMPHOCYTES ABSOLUTE AUTO 0.74 K/mm3 (0.84-5.20); LYMPHOCYTES PERCENT AUTO 6 % (21-46); MONOCYTES ABSOLUTE AUTO 0.26 K/mm3 (0.16-1.47); MONOCYTES PERCENT AUTO 2 % (4-13); Mean Corpuscular HGB 26.8 pg (26.0-34.0); Mean Corpuscular HGB Conc 33.7 g/dL (31.5-36.5); Mean Corpuscular Volume 80 fL (80-100); Mean Platelet Volume 9.3 fL (9.1-12.4); NEUTROPHILS ABSOLUTE AUTO 10.62 K/mm3 (1.96-9.15); NEUTROPHILS PERCENT AUTO 91 % (41-73); Platelet Count 376 K/mm3 (150-400); RDW Standard Deviation 40.5 fL (35.1-46.3); Red Blood Cell Count 5.03 M/mm3 (4.30-5.90); White Blood Cell Count 11.67 K/mm3 (4.00-11.30)
[2025-01-18 08:52] LABS: Albumin, Blood 4.5 g/dL (3.4-5.0); Albumin/Globulin Ratio 1.2 (0.8-1.8); Bun/Creatinine Ratio 20.3 (12.0-20.0); Calcium, Blood 9.5 mg/dL (8.5-10.1); Creatinine, Blood 0.79 mg/dL (0.60-1.20); Globulin, Blood 3.7 g/dL (2.2-4.0); Potassium, Blood 3.1 mmol/L (3.5-5.5); Total Protein, Blood 8.2 g/dL (6.4-8.2)
[2025-01-18] MEDS ORDERED: Haloperidol Lactate Inj. 5 MG/ML Injection IV ONE (08:55)
[2025-01-18] MEDS ORDERED: Lactated Ringer's 1,000 ML IV ONE (08:55)
[2025-01-18] MEDS ORDERED: Potassium Chloride 20 MEQ TabCR PO ONE (09:45)
[2025-01-18] MEDS ORDERED: Mag Hydrox/AL Hydrox/Simeth 30 ML UDC PO ONE (09:45)
[2025-01-18] MEDS ORDERED: Benztropine Mesylate 1 MG/ML 2ML Amp IV ONE (10:25)
[2025-01-18 10:43] VITALS: BP 129/80
[2025-01-18] MEDS ORDERED: PROM12.5S PR (10:51)
[2025-01-18] MEDS ORDERED: PROC5 PO (10:51)
[2025-01-18] MEDS ORDERED: BENZ1 PO (10:51)
[2025-01-18] MEDS ORDERED: ONDA4ODT MM (10:51)
== END 2025-01-18 11:07 | disposition home or self-care (01) ==
LOC: ER 07:39
PROVIDERS: Student in an Organized Health Care Education/Training Program
DX: R11.2 Nausea with vomiting, unspecified (principal); F12.90 Cannabis use, unspecified, uncomplicated; E86.0 Dehydration; E87.6 Hypokalemia; E10.9 Type 1 diabetes mellitus without complications; Z88.0 Allergy status to penicillin; F17.210 Nicotine dependence, cigarettes, uncomplicated; Z88.8 Allergy status to other drugs, medicaments and biological substances; Z79.4 Long term (current) use of insulin
CPT/HCPCS: 80053; 82803; 82947; 83690; 85025; 93005; 93010; 96361; 96374; 96375; 99284-25; A9270; J0515; J1630; J7120

== ENCOUNTER 2025-01-23 07:50 | Emergency (ER) | payer OTHER ==
[~2025-01-23] VITALS: Ht 175.3 cm; Wt 90.7 kg
[~2025-01-23 07:50] MED LIST changes: +BENZ1 PO; +PROC5 PO
[2025-01-23] MEDS ORDERED: Haloperidol Lactate Inj. 5 MG/ML Injection IV ONE (08:45)
[2025-01-23] MEDS ORDERED: NS 1,000 ML IV SCH ×2 (08:45→10:10)
[2025-01-23 09:11] LABS: Base Excess Venous 7.2 mmol/L; Bicarbonate Venous 29.9 mmol/L (24.0-30.0); PCO2 Venous 41.3 mmHg (38-42); pH Blood Venous 7.48 (7.34-7.37)
[2025-01-23 09:16] LABS: BASOPHILS ABSOLUTE AUTO 0.04 K/mm3 (0.00-0.23); BASOPHILS PERCENT AUTO 1 % (0-2); EOSINOPHILS ABSOLUTE AUTO 0.01 K/mm3 (0.00-0.68); EOSINOPHILS PERCENT AUTO 0 % (0-6); Hematocrit 43.9 % (37.0-53.0); Hemoglobin 14.9 g/dL (13.5-17.5); IMMATURE GRAN ABSOLUTE AUTO 0.02 K/mm3 (0.00-0.10); IMMATURE GRAN PERCENT AUTO 0 % (0-1); LYMPHOCYTES ABSOLUTE AUTO 1.32 K/mm3 (0.84-5.20); LYMPHOCYTES PERCENT AUTO 16 % (21-46); MONOCYTES ABSOLUTE AUTO 0.33 K/mm3 (0.16-1.47); MONOCYTES PERCENT AUTO 4 % (4-13); Mean Corpuscular HGB 27.2 pg (26.0-34.0); Mean Corpuscular HGB Conc 33.9 g/dL (31.5-36.5); Mean Corpuscular Volume 80 fL (80-100); Mean Platelet Volume 9.6 fL (9.1-12.4); NEUTROPHILS ABSOLUTE AUTO 6.32 K/mm3 (1.96-9.15); NEUTROPHILS PERCENT AUTO 79 % (41-73); Platelet Count 374 K/mm3 (150-400); RDW Coefficient Variation 13.8 % (11.7-14.2); RDW Standard Deviation 39.7 fL (35.1-46.3); Red Blood Cell Count 5.47 M/mm3 (4.30-5.90); White Blood Cell Count 8.04 K/mm3 (4.00-11.30)
[2025-01-23] MEDS ORDERED: DiphenhydrAMINE HCl 50 MG/ML 1ML Vial IV ONE (09:20)
[2025-01-23 09:36] LABS: Albumin, Blood 4.6 g/dL (3.4-5.0); Albumin/Globulin Ratio 1.3 (0.8-1.8); Bilirubin, Total 1.1 mg/dL (0.1-1.0); Bun/Creatinine Ratio 13.2 (12.0-20.0); Creatinine, Blood 0.91 mg/dL (0.60-1.20); Globulin, Blood 3.6 g/dL (2.2-4.0); Magnesium, Blood 2.2 mg/dL (1.6-2.4); Potassium, Blood 3.3 mmol/L (3.5-5.5); Total Protein, Blood 8.2 g/dL (6.4-8.2)
[2025-01-23] MEDS ORDERED: Magnesium Oxide 400 MG Tab PO ONE (09:55)
[2025-01-23] MEDS ORDERED: Potassium Chloride 20 MEQ TabCR PO ONE (09:55)
[2025-01-23] MEDS ORDERED: LORazepam 2 MG/ML 1ML Injection IV ONE (10:10)
[2025-01-23] MEDS ORDERED: Trihexyphenidyl HCL 2 MG Tab PO ONE (10:40)
[2025-01-23 12:15] VITALS: BP 136/86
[2025-01-23] MEDS ORDERED: ONDA4 PO (12:35)
[2025-01-23] MEDS ORDERED: BENADRYL25 M1 PO (12:35)
== END 2025-01-23 13:13 | disposition home or self-care (01) ==
LOC: ER 07:50
PROVIDERS: Emergency Medicine
DX: R11.2 Nausea with vomiting, unspecified (principal); E87.5 Hyperkalemia; T50.905A Adverse effect of unspecified drugs, medicaments and biological substances, initial encounter; E10.9 Type 1 diabetes mellitus without complications; F17.210 Nicotine dependence, cigarettes, uncomplicated; Z79.4 Long term (current) use of insulin; Z88.0 Allergy status to penicillin; Z88.6 Allergy status to analgesic agent; Z88.8 Allergy status to other drugs, medicaments and biological substances
CPT/HCPCS: 80053; 82803; 83690; 83735; 85025; 96361; 96374; 96375; 99284-25; A9270; J1200; J1630; J2060; J7030

== ENCOUNTER 2025-03-28 21:10 | Inpatient (IN) | payer OTHER ==
[~2025-03-28] VITALS: Ht 177.8 cm; Wt 95.4 kg
[~2025-03-28 21:10] MED LIST changes: +BENADRYL25 M1 PO
[2025-03-28] MEDS ORDERED: Ondansetron HCl 2 MG / ML 2ML Vial IV PRN (21:35)
[2025-03-28 21:48] LABS: BASOPHILS ABSOLUTE AUTO 0.03 K/mm3 (0.00-0.23); BASOPHILS PERCENT AUTO 0 % (0-2); EOSINOPHILS PERCENT AUTO 0 % (0-6); Hematocrit 40.2 % (37.0-53.0); Hemoglobin 13.3 g/dL (13.5-17.5); IMMATURE GRAN ABSOLUTE AUTO 0.05 K/mm3 (0.00-0.10); IMMATURE GRAN PERCENT AUTO 0 % (0-1); LYMPHOCYTES ABSOLUTE AUTO 0.85 K/mm3 (0.84-5.20); LYMPHOCYTES PERCENT AUTO 6 % (21-46); MONOCYTES ABSOLUTE AUTO 0.26 K/mm3 (0.16-1.47); MONOCYTES PERCENT AUTO 2 % (4-13); Mean Corpuscular HGB 26.8 pg (26.0-34.0); Mean Corpuscular HGB Conc 33.1 g/dL (31.5-36.5); Mean Corpuscular Volume 81 fL (80-100); Mean Platelet Volume 9.9 fL (9.1-12.4); NEUTROPHILS ABSOLUTE AUTO 12.28 K/mm3 (1.96-9.15); NEUTROPHILS PERCENT AUTO 91 % (41-73); Platelet Count 399 K/mm3 (150-400); RDW Coefficient Variation 13.2 % (11.7-14.2); RDW Standard Deviation 38.3 fL (35.1-46.3); Red Blood Cell Count 4.97 M/mm3 (4.30-5.90); White Blood Cell Count 13.47 K/mm3 (4.00-11.30)
[2025-03-28 22:13] LABS: Albumin, Blood 4.4 g/dL (3.4-5.0); Albumin/Globulin Ratio 1.2 (0.8-1.8); Bilirubin, Total 0.8 mg/dL (0.1-1.0); Calcium, Blood 9.9 mg/dL (8.5-10.1); Creatinine, Blood 0.81 mg/dL (0.60-1.20); Globulin, Blood 3.8 g/dL (2.2-4.0); Total Protein, Blood 8.2 g/dL (6.4-8.2)
[2025-03-29] VITALS (15 sets, daily range): BP systolic 113–156; BP diastolic 46–98
[2025-03-29] MEDS ORDERED: Ondansetron HCl 2 MG / ML 2ML Vial IV ONE (00:40)
[2025-03-29] MEDS ORDERED: Haloperidol Lactate Inj. 5 MG/ML Injection IV ONE (01:05)
[2025-03-29] MEDS ORDERED: Mag Hydrox/AL Hydrox/Simeth 30 ML UDC PO ONE (01:05)
[2025-03-29] MEDS ORDERED: NS 1,000 ML IV SCH (01:05)
[2025-03-29 01:26] LABS: Bicarbonate Venous 20.5 mmol/L (24.0-30.0); PCO2 Venous 20.4 mmHg (38-42); pH Blood Venous 7.51 (7.34-7.37)
[2025-03-29] MEDS ORDERED: DiphenhydrAMINE HCl 50 MG/ML 1ML Vial IV ONE (02:05)
[2025-03-29] MEDS ORDERED: Dextrose 50% 50 ML Syringe IV PRN (03:05)
[2025-03-29] MEDS ORDERED: Acetaminophen 325 MG TABLET PO PRN ×2 (03:05→15:20)
[2025-03-29] MEDS ORDERED: Ondansetron HCl 2 MG / ML 2ML Vial IV PRN (03:05)
[2025-03-29] MEDS ORDERED: Insulin Human Regular 100 UNIT in NS 100 ML IV SCH (03:10)
[2025-03-29] MEDS ORDERED: Lactated Ringer's 1,000 ML IV SCH ×2 (04:00)
[2025-03-29] MEDS ORDERED: D5W-1/2NS KCl 20mEq 1,000 ML IV SCH ×2 (04:00→08:20)
[2025-03-29 04:35] LABS: Bun/Creatinine Ratio 18.9 (12.0-20.0); Calcium, Blood 8.9 mg/dL (8.5-10.1); Creatinine, Blood 0.9 mg/dL (0.60-1.20); Potassium, Blood 4.8 mmol/L (3.5-5.5)
[2025-03-29 05:03] LABS: Source, Urine Clean Catch
[2025-03-29 05:06] LABS: Appearance, Urine Clear (Clear); Bilirubin, Urine Neg (Neg); Blood, Urine 1+ (Neg); Color, Urine Yellow (P-Yellow); Glucose Qualitative, Urine 4+ (Neg); Ketones, Urine 4+ (Neg); Leukocyte Esterase, Urine Neg (Neg); Nitrite, Urine Neg (Neg); Protein, Urine 2+ (Neg); Urobilinogen, Urine NORM (Normal)
[2025-03-29 05:19] LABS: Bacteria Not Seen /hpf; Red Blood Cells, Urine 0-2 /hpf (0-2); Squamous Epithelial Cells Rare /hpf (Few); White Blood Cells, Urine Not Seen /hpf (0-5)
[2025-03-29 05:31] LABS: Base Excess Venous -12.2 mmol/L; Bicarbonate Venous 16.1 mmol/L (24.0-30.0); PCO2 Venous 27.9 mmHg (38-42); pH Blood Venous 7.31 (7.34-7.37)
[2025-03-29 08:52] LABS: U Amphetamine Screen Not Detected; U Barbituate Screen Not Detected; U Benzodiazapine Screen Not Detected; U Buprenorphine Screen Not Detected; U Cannabinoids Screen DETECTED; U Cocaine Screen Not Detected; U Methadone Screen Not Detected; U Methamphetamine Screen Not Detected; U Opiates Screen Not Detected; U Oxycodone Screen Not Detected; U Phencyclidine Screen Not Detected
[2025-03-29 08:53] LABS: Bun/Creatinine Ratio 20.4 (12.0-20.0); Calcium, Blood 9.5 mg/dL (8.5-10.1); Creatinine, Blood 0.98 mg/dL (0.60-1.20); Potassium, Blood 4.3 mmol/L (3.5-5.5)
[2025-03-29] MEDS ORDERED: Enoxaparin 40 MG/0.4 ML SYR SC SCH (09:00)
--- NOTE | 2025-03-29 11:12 | NUR ---
ADMIT... PT ARRIVED TO THE UNIT AT 0738, PT IS SLEEPY BUT WAKES EASILY. PT IS IN SINUS TACH LOW 100'S, BP IS STABLE WITH SBPs 110'S-130'S. NO SWELLING OR EDEMA IS NOTED. L/S CLEAR T/O PT IS ON RA WITH O2 SATS>95%. BT PRESENT AND HYPOACTIVE. PT DOES C/O OF SLIGHT NAUSEA AND SOME ABD PAIN BUT ALSO STATES THIS HAS IMPROVED. PT IS ON AN INSLUIN DRIP RUNNING AT 4.8U/HR AND LR AT 200MLS/HR. DURING THE ADMIT THE PT WAS NOTED TO HAVE EPISODES WHILE HE IS AWAKE WHERE HIS WHOLE BODY TENSES UP, PT STARTS TO BREATH QUICKLY THROUGH CLENCHED TEETH, HIS HR INCREASES TO THE 150'S AND EYES WIDE OPEN. BP AND SPO2 ARE STABLE DURING THESE EPISODES. PT C/O SEVERE PAIN DURING THESE EPISODES BUT THE PAIN LESSENS WHEN THE EPISODE IS OVER.
[2025-03-29 14:01] LABS: Bun/Creatinine Ratio 15.7 (12.0-20.0); Calcium, Blood 9.7 mg/dL (8.5-10.1); Creatinine, Blood 0.96 mg/dL (0.60-1.20); Potassium, Blood 3.8 mmol/L (3.5-5.5)
[2025-03-29] MEDS ORDERED: diphenhydrAMINE HCl 12.5 MG/5 ML 5MLUDC (Alcohol/Dye Free) PO PRN (15:20)
[2025-03-29] MEDS ORDERED: DiphenhydrAMINE HCL 25 MG Cap PO PRN (15:55)
[2025-03-29 17:18] LABS: Bun/Creatinine Ratio 16.2 (12.0-20.0); Calcium, Blood 9.2 mg/dL (8.5-10.1); Creatinine, Blood 0.86 mg/dL (0.60-1.20)
--- NOTE | 2025-03-29 17:25 | NUR ---
SHIFT SUMMARY... PT CONTINUES TO BE ON THE INSULIN DRIP CURRENT RATE IS 1.6. PT'S LABS WERE DRAWN THIS EVENING AND HIS GAP/CO2 HAS CLOSED THE PROVIDER WAS NOTIFIED AND THE PLAN IS TO TRANSITION OFF THE DRIP TONIGHT. THE PT'S VS HAVE BEEN STABLE T/O THIS SHIFT. THE PT CONTINUES TO HAVE THE MUSCLE SPASM/DYSTONIC EPISODES WHEN HE IS AWAKE. THEY ALWAYS SELF RESOLVE WITH THE LONGEST EPISODE LASTING 1MIN 10SECONDS. THE PT HAS USED THE URINAL ONCE THIS SHIFT. NO BM. THE PT IS ABLE TO TURN/REPOSITION HIMSELF IN THE BED.
[2025-03-29] MEDS ORDERED: Insulin Glargine-Yfgn 100 Unit/mL 3 ML SYR SC SCH ×2 (17:40→21:00)
[2025-03-29] MEDS ORDERED: INSULANI SC (17:50)
[2025-03-29] MEDS ORDERED: Insulin Human Lispro 100 Units/ML 3ML Syringe SC SCH (18:00)
[2025-03-29 21:33] LABS: Bun/Creatinine Ratio 15.6 (12.0-20.0); Creatinine, Blood 0.9 mg/dL (0.60-1.20); Magnesium, Blood 1.9 mg/dL (1.6-2.4); Potassium, Blood 3.9 mmol/L (3.5-5.5)
[2025-03-29] MEDS ORDERED: LORazepam 2 MG/ML 1ML Injection IV PRN (22:25)
[2025-03-29] MEDS ORDERED: Droperidol 5 mg/2 ml Vial IV ONE (22:25)
[2025-03-30] VITALS (22 sets, daily range): BP systolic 109–180; BP diastolic 67–99
[2025-03-30] MEDS ORDERED: LORazepam 2 MG/ML 1ML Injection IV ONE (00:55)
[2025-03-30] MEDS ORDERED: Haloperidol Lactate Inj. 5 MG/ML Injection IV ONE (01:00)
[2025-03-30 01:46] LABS: Bun/Creatinine Ratio 17.3 (12.0-20.0); Calcium, Blood 8.9 mg/dL (8.5-10.1); Creatinine, Blood 0.98 mg/dL (0.60-1.20); Potassium, Blood 4.2 mmol/L (3.5-5.5)
[2025-03-30] MEDS ORDERED: Insulin Human Regular 100 UNIT in NS 100 ML IV SCH (01:55)
[2025-03-30] MEDS ORDERED: Lactated Ringer's 1,000 ML IV SCH (01:55)
--- NOTE | 2025-03-30 01:55 | NUR ---
PT UPDATE: PT HAD MULTIPLE EPISODES OF EMESIS SINCE START OF SHIFT, PROVIDERS MADE AWARE AND PT MEDICATED PER ORDERS, SEE EMAR. AT ABOUT 0100, GLUCOSE CHECKED AND READ "HIGH," CHEM PANEL SENT TO LAB PER PROTOCOL. DR CHICAS NOTIFIED OF LAB RESULTS. ORDERS PLACED TO START PT ON INSULIN DRIP AND LR 125ML/HR, SEE EMAR FOR ADMINISTRATION AND DOSAGE.
[2025-03-30 03:49] LABS: Hematocrit 40.4 % (37.0-53.0); Hemoglobin 13.1 g/dL (13.5-17.5); Mean Corpuscular HGB 27.5 pg (26.0-34.0); Mean Corpuscular HGB Conc 32.4 g/dL (31.5-36.5); Mean Corpuscular Volume 85 fL (80-100); Mean Platelet Volume 10.2 fL (9.1-12.4); Platelet Count 415 K/mm3 (150-400); RDW Coefficient Variation 13.8 % (11.7-14.2); RDW Standard Deviation 42.3 fL (35.1-46.3); Red Blood Cell Count 4.76 M/mm3 (4.30-5.90); White Blood Cell Count 22.64 K/mm3 (4.00-11.30)
[2025-03-30 04:10] LABS: Albumin, Blood 4.2 g/dL (3.4-5.0); Anion Gap 19 mmol/L (3-11); Blood Urea Nitrogen 18 mg/dL (8-24); CO2, Blood 20 mmol/L (21-32); Calcium, Blood 9.6 mg/dL (8.5-10.1); Chloride, Blood 103 mmol/L (98-108); Glomerular Filtration Rate 104 (60-); Glucose, Blood 351 mg/dL (70-99); Magnesium, Blood 2.1 mg/dL (1.6-2.4); Phosphorus, Blood 4.3 mg/dL (2.5-4.9); Potassium, Blood 3.7 mmol/L (3.5-5.5); Sodium, Blood 138 mmol/L (136-145)
[2025-03-30] MEDS ORDERED: D5W-1/2NS KCl 20mEq 1,000 ML IV SCH (05:10)
--- NOTE | 2025-03-30 06:30 | NUR ---
SHIFT SUMMARY: PT REMAINS A&OX4, FOLLOWS COMMANDS AND HOLD APPROPRIATE CONVERSATION W/STAFF. PT AFEBRILE T/O SHIFT. PT HR AT TIMES TACHY, SINUS. SBP 120-150S. HIGHER BPS ASSOCIATED W/TIMES WHEN PT WAS VOMITING. LUNGS CLEAR. PT IS ON RA. SATS >95%. PT HAS HYPOACTIVE BT, MULTIPLE EPISODES OF VOMITING AND FEELING NAUSEAS. SEE PRIOR NOTE. THIS RN ENCOURAGED PT TO DISCONTINUE DRINKING ANY FLUIDS EPISODES CORRELATED W/PT DRINKING WATER. EPISODES SUBSIDED WHEN HE WAS NOT DRINKING WATER. PT USES URINAL INDEPENDENTLY AND BED SIDE TOILET WITH STAND-BY ASSIST. PT HAS POWERGLIDE IN YU AND PERIPHERAL IV IN LFA. INFUSING IS INSULIN AT 2U/HR AND D521/2NS KCL 20 mEQ AT 150ML/HR. THIS RN TO CONTINUE TO MONITOR AND WILL REPORT TO ONCOMING RN.
--- NOTE | 2025-03-30 07:00 | NUR ---
ASSUMED CARE OF PATIENT AT APPROXIMATELY 0700. REPORT RECEIVED FROM EBONIE RN AND SEDRICK RN. PT AWAKE, INTERACTING c STAFF APPROPRIATELY DURING BEDSIDE REPORT. CONTINUOUS CARDIAC MONITORING IN PLACE. ON RA. INSULIN INFUSING AT 3 U/HR, D5 1/2 NS c KCL INFUSING AT 150 mL/HR. SEE SHIFT ASSESSMENT FOR FULL DETAILS.
[2025-03-30 08:19] LABS: Calcium, Blood 9.3 mg/dL (8.5-10.1); Creatinine, Blood 0.84 mg/dL (0.60-1.20); Potassium, Blood 3.8 mmol/L (3.5-5.5)
[2025-03-30] MEDS ORDERED: NS 1,000 ML IV ONE (10:00)
[2025-03-30 13:03] LABS: Bun/Creatinine Ratio 16.4 (12.0-20.0); Calcium, Blood 8.7 mg/dL (8.5-10.1); Creatinine, Blood 0.73 mg/dL (0.60-1.20); Potassium, Blood 3.7 mmol/L (3.5-5.5)
[2025-03-30] MEDS ORDERED: Insulin Human Lispro 100 Units/ML 3ML Syringe SC SCH ×5 (13:20→21:00)
[2025-03-30 13:51] LABS: U Amphetamine Screen Not Detected; U Barbituate Screen Not Detected; U Benzodiazapine Screen DETECTED; U Buprenorphine Screen Not Detected; U Cannabinoids Screen DETECTED; U Cocaine Screen Not Detected; U Methadone Screen Not Detected; U Methamphetamine Screen Not Detected; U Opiates Screen Not Detected; U Oxycodone Screen Not Detected; U Phencyclidine Screen Not Detected
--- NOTE | 2025-03-30 17:20 | NUR ---
SHIFT SUMMARY PT REMAINS ALERT AND ORIENTED X 4. ABLE TO FOLLOW COMMANDS, MAKE PURPOSEFUL MOVEMENTS, AND MAKE NEEDS KNOWN. AFEBRILE. DENIES PAIN. CONTINUOUS CARDIAC MONITORING IN PLACE SHOWS SR-ST. BP STABLE c MAP > 65. ON RA c O2 SATURATIONS > 92%. CONTINUES TO HAVE INTERMITTENT EMESIS. UTILIZES BEDSIDE URINAL INDEPENDENTLY. IV'S ARE SALINE LOCKED. COVERAGE INCREASED TO MEDIUM SS THIS SHIFT. WILL CONTINUE TO MONITOR AND REPORT TO ONCOMING RN.
[2025-03-30] MEDS ORDERED: Insulin Glargine-Yfgn 100 Unit/mL 3 ML SYR SC SCH (21:00)
[2025-03-31] VITALS (14 sets, daily range): BP systolic 123–172; BP diastolic 65–111
[2025-03-31 03:57] LABS: Hematocrit 35.8 % (37.0-53.0); Hemoglobin 11.9 g/dL (13.5-17.5); Mean Corpuscular HGB 27.6 pg (26.0-34.0); Mean Corpuscular HGB Conc 33.2 g/dL (31.5-36.5); Mean Corpuscular Volume 83 fL (80-100); Mean Platelet Volume 9.9 fL (9.1-12.4); Platelet Count 333 K/mm3 (150-400); RDW Coefficient Variation 13.5 % (11.7-14.2); RDW Standard Deviation 41.1 fL (35.1-46.3); Red Blood Cell Count 4.31 M/mm3 (4.30-5.90); White Blood Cell Count 16.35 K/mm3 (4.00-11.30)
[2025-03-31 04:18] LABS: Albumin, Blood 3.7 g/dL (3.4-5.0); Anion Gap 11 mmol/L (3-11); Blood Urea Nitrogen 13 mg/dL (8-24); Bun/Creatinine Ratio 16.7 (12.0-20.0); CO2, Blood 30 mmol/L (21-32); Calcium, Blood 8.9 mg/dL (8.5-10.1); Chloride, Blood 100 mmol/L (98-108); Creatinine, Blood 0.78 mg/dL (0.60-1.20); Glomerular Filtration Rate 123 (60-); Glucose, Blood 270 mg/dL (70-99); Magnesium, Blood 1.9 mg/dL (1.6-2.4); Phosphorus, Blood 3.3 mg/dL (2.5-4.9); Potassium, Blood 3.6 mmol/L (3.5-5.5); Sodium, Blood 137 mmol/L (136-145)
--- NOTE | 2025-03-31 06:25 | NUR ---
SHIFT SUMMARY: PT REMAINS A&O X4, ABLE TO MAKE NEEDS KNOWN, AND HOLDS APPROPRIATE CONVERSATION WITH STAFF. PT HR FLUCTUATED BETWEEN SINUS AND SINUS TACH. SINUS TACH CORRELATED W/EPISODES OF EMESIS. SBP 120S-150S, W/HIGHER SBPS CORRELATING TO HIS EPISODES OF EMESIS. PT DENIES CHEST PAIN OR SOB. PT ON RA. SATS >95%. LUNGS CLEAR T/O. PT CONTINUES TO INSIST ON DOWNING CLEAR FLUIDS DESPITE MUCH EDUCATION AND EMPHASIS PROVIDED TO HIM ON TAKING SIPS IN MODERATION. PT MEDICATED W/PRN NAUSEA MEDS PER EMAR. PT CONTINUES TO AMBULATE INDEPENDENTLY TO BEDSIDE TOILET AND USES URINAL AT TIMES. PT HAS POWERGLIDE IN YU AND PERIPHERAL IV IN LFA. NOTHING INFUSING AT THIS TIME. THIS RN TO CONTINUE TO MONITOR AND REPORT TO ONCOMING RN.
[2025-03-31] MEDS ORDERED: Insulin Glargine-Yfgn 100 Unit/mL 3 ML SYR SC SCH (08:00)
[2025-03-31] MEDS ORDERED: NS 1,000 ML IV SCH (11:35)
[2025-03-31 14:56] LABS: Albumin, Blood 3.5 g/dL (3.4-5.0); Anion Gap 8 mmol/L (3-11); Blood Urea Nitrogen 12 mg/dL (8-24); Bun/Creatinine Ratio 13.8 (12.0-20.0); CO2, Blood 33 mmol/L (21-32); Calcium, Blood 8.9 mg/dL (8.5-10.1); Chloride, Blood 99 mmol/L (98-108); Creatinine, Blood 0.87 mg/dL (0.60-1.20); Glomerular Filtration Rate 119 (60-); Glucose, Blood 225 mg/dL (70-99); Potassium, Blood 3.4 mmol/L (3.5-5.5); Sodium, Blood 137 mmol/L (136-145)
--- NOTE | 2025-03-31 17:54 | NUR ---
END OF SHIFT SUMMARY: PATIENT REMAINS OFF INSULIN INFUSION. CONTINUES TO HAVE NAUISEA AND VOMITING, NOT TOLERATING MEALS DISPITE PRN JOSE LUIS. PATIENT AMBLATORY ABLE TO TAKE A SHOWER TODAY, TRANFERED TO ROOM 313 AT 17:33, MORRIS GUAN ASSUMED CARE.
--- NOTE | 2025-03-31 18:08 | NUR ---
TRANSFER PT TRANSFERED TO 313 FROM ICU. IT ORIENTED TO ROOM. DINNER AT BEDSIDE. TOLERATING WELL OKAY. 2 VAPS, A RF ENGINEER, AND CIGARETTES WERE FOUND IN HIS BELONGINGS AND LOCKED UP IN THE MED LOCK BOX. PT INFORMED TO ASK FOR THEM UPON DISCHARGE. 2 RN SKIN CHECK COMPLETED WITH PIPO JIMENEZ RN. NO CHANGES FROM PRIOR AEROSOL SUPERVISOR NOTED. PT ASKING FOR A SHOWER AT THIS TIME.
[2025-03-31] MEDS ORDERED: Insulin Human Lispro 100 Units/ML 3ML Syringe SC ONE (21:30)
--- NOTE | 2025-04-01 02:16 | NUR ---
SHIFT SUMMARY: AOX4. VSS. AMBULATES INDEPENDENTLY AROUND ROOM. BLOOD SUGARS ARE ELEVATED, 348 AT BEDTIME. ADMINISTERED SLIDING SCALE (3 UNITS) AND ONE TIME ORDER OF 7 UNITS. PT STATED THAT HE NORMALLY TAKES A LOT MORE INSULIN AT HOME TO MANAGE SUGARS AND IS WORRIED ABOUT HOW HIGH HIS SUGARS ARE. PT EXPRESSED FEELING NAUSEOUS THIS SHIFT, ZOFRAN GIVEN PER MAR. PT EXPRESSED NO OTHER CONCERNS AT THIS TIME. CALL LIGHT IS WITHIN REACH. BED IS LOW AND LOCKED.
[2025-04-01 04:08] VITALS: BP 155/84
[2025-04-01 05:52] LABS: Hematocrit 37.1 % (37.0-53.0); Hemoglobin 12.3 g/dL (13.5-17.5); Mean Corpuscular HGB 27.3 pg (26.0-34.0); Mean Corpuscular HGB Conc 33.2 g/dL (31.5-36.5); Mean Corpuscular Volume 82 fL (80-100); Mean Platelet Volume 10.2 fL (9.1-12.4); Platelet Count 311 K/mm3 (150-400); RDW Coefficient Variation 13.4 % (11.7-14.2); RDW Standard Deviation 39.9 fL (35.1-46.3); White Blood Cell Count 9.93 K/mm3 (4.00-11.30)
[2025-04-01 06:35] LABS: Albumin, Blood 3.5 g/dL (3.4-5.0); Anion Gap 10 mmol/L (3-11); Blood Urea Nitrogen 15 mg/dL (8-24); CO2, Blood 33 mmol/L (21-32); Chloride, Blood 95 mmol/L (98-108); Creatinine, Blood 0.88 mg/dL (0.60-1.20); Glomerular Filtration Rate 119 (60-); Glucose, Blood 266 mg/dL (70-99); Phosphorus, Blood 4.2 mg/dL (2.5-4.9); Potassium, Blood 3.2 mmol/L (3.5-5.5); Sodium, Blood 135 mmol/L (136-145)
[2025-04-01 07:28] VITALS: BP 141/81
[2025-04-01] MEDS ORDERED: Potassium Chloride 40 MEQ in NS 250 ML IV STA (10:11)
[2025-04-01] MEDS ORDERED: NS 250 ML IV PRN (11:00)
[2025-04-01 16:32] VITALS: BP 141/87
[2025-04-01] MEDS ORDERED: NS KCl 20mEq 1,000 ML IV SCH (19:00)
--- NOTE | 2025-04-01 19:28 | NUR ---
SHIFT SUMMARY MR VICKY WELLS IS OX4. INDEPENDENT, STEADY GAIT. HE DRANK A LOT OF FLUIDS TODAY AND SAID THAT HE VOMITED TWENTY TIMES. I REQUESTED THAT HE PLEASE SAVE THE VOMIT SO AMOUNTS CAN BE MEASURED. HE HAS NOT SAVED THE VOMIT. DR ZAZUETA WAS NOTIFIED OF EMESIS AND PT REQUEST FOR IVF, WHICH IS ORDERED AND NIGHT NURSE ASSUMING CARE OF IT. DR ZAZUETA SAID THAT HE CAN ADVANCE DIET TOLERATED. MR VICKY WELLS REQUESTED SOLID FOOD FOR LUNCH. AFTER LUNCH AND THE INFORMATION THAT HE HAD VOMITED 20X DIET WAS DISCUSSED WITH MR VICKY WELLS AND CLEAR LIQUID DIET RESUMED. HE KNOWS DIET CAN BE ADVANCED AGAIN. HE TOOK ZOFRAN TWICE AND SAID IT HELPED JUST A LITTLE. BED LOW, CALL LIGHT IN REACH.
[2025-04-01 20:28] VITALS: BP 152/95
[2025-04-02] MEDS ORDERED: Prochlorperazine Edisylate 10 mg Vial IV PRN (01:55)
[2025-04-02 04:42] VITALS: BP 172/94
[2025-04-02 06:45] LABS: Albumin, Blood 3.4 g/dL (3.4-5.0); Anion Gap 11 mmol/L (3-11); Blood Urea Nitrogen 15 mg/dL (8-24); Bun/Creatinine Ratio 16.1 (12.0-20.0); CO2, Blood 32 mmol/L (21-32); Calcium, Blood 8.9 mg/dL (8.5-10.1); Chloride, Blood 95 mmol/L (98-108); Creatinine, Blood 0.93 mg/dL (0.60-1.20); Glomerular Filtration Rate 113 (60-); Glucose, Blood 339 mg/dL (70-99); Phosphorus, Blood 3.9 mg/dL (2.5-4.9); Potassium, Blood 3.5 mmol/L (3.5-5.5); Sodium, Blood 134 mmol/L (136-145)
[2025-04-02 07:32] VITALS: BP 152/92
--- NOTE | 2025-04-02 07:42 | NUR ---
SHIFT SUMMARY PT HAS BEEN RESTING IN BED OVERNIGHT. HE HAS BEEN AOX4, CALM AND COOPERATIVE. HE HAS C/O NAUSEA AND VOMITING ENTIRE NIGHT, WITH ZOFRAN AND COMPAZINE INEFFECTIVE FOR PT. PT HAS BEEN INDEPENDENT AMBULATING TO BATHROOM. OTHER THAN CONSTANT N/V, PT HAS HAD NO COMPLAINTS.
[2025-04-02] MEDS ORDERED: NS 500 ML IV SCH (08:20)
--- NOTE | 2025-04-02 08:42 | NUR ---
NOTIFIED DR. ANDERSON OF PATIENTS BLOOD SUGAR OF 408 THIS AM. ORDERED TO GIVE SCHEDULED INSULIN AND RECHECK IN 1 HOUR.
[2025-04-02 11:32] LABS: Base Excess Venous 10.2 mmol/L; Bicarbonate Venous 33.2 mmol/L (24.0-30.0); PCO2 Venous 40.4 mmHg (38-42); pH Blood Venous 7.52 (7.34-7.37)
--- NOTE | 2025-04-02 12:32 | NUR ---
PT MADE ME AWARE HE HAS BEEN USING HIS OWN INSULIN FROM HOME TO MANAGE HIS SUGARS WHEN WE ARE CHECKING HIS BLOOD GLUCOSE. NOTIFIED DR. ANDERSON WHO OK'D HIM TO USE HIS OWN INSULIN BUT PER PHARMACY THEY ARE NOT ALLOWED TO DISPENCE HOME FORMULARY IF WE CAN SUPPLY. PT STATES HE DOES NOT THINK WE ARE GIVING HIM ENOUGH INSULIN RELAYED THIS TO DR. ANDERSON WHO OK'D TO INCREASE SLIDING SCALE. DR. ANDERSON TO COME BY THIS AFTERNOON TO DISCUSS A INSULIN REGIMEN PLAN WITH PATIENT THAT HE AND DR. ANDERSON ARE BOTH OK WITH.
[2025-04-02 15:20] VITALS: BP 142/83
[2025-04-02] MEDS ORDERED: Insulin Human Lispro 100 Units/ML 3ML Syringe SC SCH (16:30)
[2025-04-02 19:19] VITALS: BP 141/72
--- NOTE | 2025-04-02 19:49 | NUR ---
SUMMARY PT SUGAR ABOVE 400 THIS MORNING. WHEN GOING IN TO ROOM TO ADMINISTER INSULIN PENS SHORT AND LONG THIS MORNING PATIENT TOLD ME HE HAD ALREADY ADMINISTERED 10 UNITS OF HIS OWN INSULIN FROM HOME. I EDUCATED PATIENT THAT THIS IS NOT HOSPITAL POLICY WE COULD POTENTIALLY HARM HIS DUE TO INADEQUATE ADMINISTRATION/DOCUMENTATION. PT WAS NOT AGREABLE TO HAVE ME LOCK UP HIS OWN INSULIN PEN. I MADE CHARGE NURSES AWARE. DR. ANDERSON ORIGINALLY OK'D PT TO USE HOME INSULIN HE HAS BEEN MANAGING IND AT HOME FOR YEARS. BUT PHARMACY CAN NOT LABEL HIS OWN INSULIN PEN IF WE CARRY THAT IN FORMULARY HERE. PT AGREABLE TO ALLOW STAFF TO ADMINISTER SHORT AND LONG ACTING PENS AFTER THE INCRASE IN REGIMEN THAT WAS DISCUSSED AT BEDSIDE WITH MYSELF, DR. DIEHL AND PATIENT. EDUCATED PATIENT TO PLEASE LET ME KNOW IF HE DOES ADMINSTER HIMSELF INSULIN FOR HIS OWN SAFETY. HE IS AGREEABLE. PT RECEIVED 500 ML BAG MAIN FLUIDS, NOW COMPLETED. PRN ZOFRAN AND COMPAZINE ADMINSTERED TODAY TO MANAGE NAUSEA. PT UP TO BATHROOM AND VOMITING, HAVE NOT SEEN PHYSICAL VOLUME OF EMESIS, EDUCATED PATIENT TO PLEASE USE EMESIS BAGS SO WE CAN GET AN IDEA OF HOW MUCH HE IS VOMITING. PT REQUESTING LOTS OF FLUIDS, LIKE MILK AND TEA AND ICE WATER. HOWEVER PT'S ROOM DID SMELL LIKE EMESIS THIS AFTERNOON. TOLERATING FULL LIQUIDS. PT ATTEMPTED TO EAT HALF ROAST BEEF SANDWHICH THIS EVENING AND SEEMED TO TOLERATE WELL. PT ABLE TO MAKE NEEDS KNOWN. INDEPENDENT IN ROOM. REFUSED BEDSIDE SHIFT REPORT THIS EVENING WITH THE REQUEST TO LET HIM SLEEP.
--- NOTE | 2025-04-02 20:21 | NUR ---
ASSUMED CARE AT 1915 REPORT FROM DAY SHIFT RN January; PER RN, PT WAS FOUND TO HAVE PERSONAL INSULIN PENS ON HIS PERSON AND HAS BEEN ADMINISTERING DOSES WITHOUT NOTIFYING STAFF--PT WAS TAKING DOSES IN ADDITION TO WHAT HE WAS GETTING FROM RN. RN NOTIFIED DR ANDERSON. CHANGES WERE MADE TO PT'S SLIDING SCALE AND SCHEDULED INSULIN. PT IS STILL HAS PERSONAL INSULIN AND HAS REFUSED TO GIVE TO STAFF TO LOCK UP. PT STATES HE WILL INFORM STAFF IF HE ADMINISTERS HIS OWN INSULIN. PT HAS BEEN ADVISED THAT THIS IS AGAINS [facility] POLICE. DR ANDERSON IS AWARE AND HAS GIVEN PT PERMISSION.
[2025-04-02] MEDS ORDERED: Mag Hydrox/AL Hydrox/Simeth 30 ML UDC PO PRN (23:30)
[2025-04-03 03:38] VITALS: BP 160/95
--- NOTE | 2025-04-03 04:20 | NUR ---
HOSPITALIST CONTACT--UNSCHEDULED DOSE OF LISPRO ORDERED PT HAVING INTRACTABLE N&V-MED WITH ATIVAN AND ZOFRAN. PT ALSO HAVING INCREASED THIRST. SPOLT CHECK CBG--344 RESULT. PT SAID HE WOULD BOLUS LISPRO 13 UNITS. PT IS REQUESTING ORDER FOR 13 UNITS NOW. PT SAID HE WOULD NOT DOSE ANY OF OWN INSULIN IF REQUEST FOR 13 [address]PROV[address] CALL TO [address]. BETHEA AND ADVISED OF CURRENT SITUATION. NEW ORDER FOR 1X UNSCHEDULED DOSE OF 13 UNITS OF LISPRO.
[2025-04-03] MEDS ORDERED: HydrALAZINE HCl 20 MG / ML 1ML Vial IV PRN (07:25)
[2025-04-03] MEDS ORDERED: NS 1,000 ML IV SCH (07:25)
[2025-04-03 07:31] VITALS: BP 136/93
[2025-04-03 07:31] LABS: Hemoglobin 13.2 g/dL (13.5-17.5)
[2025-04-03 07:55] LABS: Bun/Creatinine Ratio 15.9 (12.0-20.0); Calcium, Blood 9.1 mg/dL (8.5-10.1); Creatinine, Blood 0.88 mg/dL (0.60-1.20); Magnesium, Blood 2.2 mg/dL (1.6-2.4); Potassium, Blood 3.2 mmol/L (3.5-5.5)
[2025-04-03] MEDS ORDERED: Insulin Glargine-Yfgn 100 Unit/mL 3 ML SYR SC SCH (09:00)
[2025-04-03] MEDS ORDERED: Nicotine 21 MG PATCH TOP SCH (10:15)
[2025-04-03] MEDS ORDERED: PROC5 PO (13:32)
[2025-04-03] MEDS ORDERED: ONDA4ODT MM (13:32)
--- NOTE | 2025-04-03 15:30 | NUR ---
DISCHARGE: PT D/C @ 3752 INDEPENDENTLY WITH ALL BELONGINGS. MEDICATIONS FAXED TO [facility]. PT AWARE TO MAKE FOLLOW-UP WITH PCP. POWERGLIDE REMOVED W/O COMPLICATIONS. PT ABLE TO TOLERATE WHOLE SANDWICH PRIOR TO D/C WITHOUT NAUSEA OR VOMITING. ONE LITER FLUIDS INFUSED PRIOR TO D/C. SPOKE WITH DR. ANDERSON REGARDING PT REQUEST FOR WORK DOCTORS NOTE. NOTE PROVIDED PRIOR TO D/C. NO QUESTIONS AT TIME OF D/C.
== END 2025-04-03 14:22 | disposition home or self-care (01) | DRG 638 ==
LOC: ER 21:10 → ERHOLD 21:11 → ICUE 21:11 → MEDS 03-30 12:40 → ICUE 03-30 12:41 → MEDS 03-31 17:00 → ENPENDDIS 04-03 11:15 → MEDS 04-03 14:22
PROVIDERS: Emergency Medicine; Hospitalist; Internal Medicine; Student in an Organized Health Care Education/Training Program; ADMIT Student in an Organized Health Care Education/Training Program
DX: E10.10 Type 1 diabetes mellitus with ketoacidosis without coma (principal); D68.00 Von Willebrand disease, unspecified; R11.2 Nausea with vomiting, unspecified; F12.90 Cannabis use, unspecified, uncomplicated; F41.9 Anxiety disorder, unspecified; F31.9 Bipolar disorder, unspecified; F17.200 Nicotine dependence, unspecified, uncomplicated; E86.0 Dehydration; G24.9 Dystonia, unspecified; Z88.0 Allergy status to penicillin; Z88.8 Allergy status to other drugs, medicaments and biological substances; Z79.4 Long term (current) use of insulin; Z86.14 Personal history of Methicillin resistant Staphylococcus aureus infection
CPT/HCPCS: 80048; 80053; 80069; 81001; 82010; 82803; 82947; 83036; 83690; 83735; 84100; 85014; 85018; 85025; 85027; 96361; 96372; 96374; 96375; 96376; 99285-25; A9270; C1751; G0378; J0780; J1200; J1630; J1650; J1815; J2060; J2405; J3480; J7030; J7040; J7050; J7120

== ENCOUNTER 2025-04-17 02:18 | Inpatient (IN) | payer OTHER ==
[~2025-04-17] VITALS: Ht 175.3 cm; Wt 93.7 kg
[2025-04-17 03:00] LABS: BASOPHILS ABSOLUTE AUTO 0.05 K/mm3 (0.00-0.23); BASOPHILS PERCENT AUTO 0 % (0-2); EOSINOPHILS ABSOLUTE AUTO 0.03 K/mm3 (0.00-0.68); EOSINOPHILS PERCENT AUTO 0 % (0-6); Hematocrit 37.2 % (37.0-53.0); Hemoglobin 12.4 g/dL (13.5-17.5); IMMATURE GRAN ABSOLUTE AUTO 0.04 K/mm3 (0.00-0.10); IMMATURE GRAN PERCENT AUTO 0 % (0-1); LYMPHOCYTES ABSOLUTE AUTO 2.69 K/mm3 (0.84-5.20); LYMPHOCYTES PERCENT AUTO 17 % (21-46); MONOCYTES ABSOLUTE AUTO 0.88 K/mm3 (0.16-1.47); MONOCYTES PERCENT AUTO 5 % (4-13); Mean Corpuscular HGB 27.4 pg (26.0-34.0); Mean Corpuscular HGB Conc 33.3 g/dL (31.5-36.5); Mean Corpuscular Volume 82 fL (80-100); Mean Platelet Volume 9.5 fL (9.1-12.4); NEUTROPHILS ABSOLUTE AUTO 12.48 K/mm3 (1.96-9.15); NEUTROPHILS PERCENT AUTO 77 % (41-73); Platelet Count 425 K/mm3 (150-400); RDW Standard Deviation 41.1 fL (35.1-46.3); Red Blood Cell Count 4.53 M/mm3 (4.30-5.90); White Blood Cell Count 16.17 K/mm3 (4.00-11.30)
[2025-04-17] MEDS ORDERED: NS 1,000 ML IV SCH (03:00)
[2025-04-17] MEDS ORDERED: Ondansetron HCl 2 MG / ML 2ML Vial IV ONE ×2 (03:00→04:20)
[2025-04-17 03:15] LABS: Source, Urine Clean Catch
[2025-04-17 03:25] LABS: Bilirubin, Urine Neg (Neg); Blood, Urine Neg (Neg); Glucose Qualitative, Urine 4+ (Neg); Ketones, Urine 4+ (Neg); Leukocyte Esterase, Urine Neg (Neg); Nitrite, Urine Neg (Neg); Protein, Urine 1+ (Neg); Specific Gravity, Urine 1.015 (1.003-1.022); Urobilinogen, Urine 1+ (Normal)
[2025-04-17 03:29] LABS: Albumin, Blood 3.7 g/dL (3.4-5.0); Bilirubin, Total 1.6 mg/dL (0.1-1.0); Bun/Creatinine Ratio 10.1 (12.0-20.0); Calcium, Blood 9.1 mg/dL (8.5-10.1); Creatinine, Blood 0.89 mg/dL (0.60-1.20); Globulin, Blood 3.6 g/dL (2.2-4.0); Magnesium, Blood 1.7 mg/dL (1.6-2.4); Potassium, Blood 3.3 mmol/L (3.5-5.5); Total Protein, Blood 7.3 g/dL (6.4-8.2)
[2025-04-17 03:34] LABS: Appearance, Urine Clear (Clear); Color, Urine Yellow (P-Yellow)
[2025-04-17 04:01] LABS: Base Excess Venous 0.6 mmol/L; Bicarbonate Venous 25.1 mmol/L (24.0-30.0); PCO2 Venous 36.6 mmHg (38-42); pH Blood Venous 7.44 (7.34-7.37)
[2025-04-17] MEDS ORDERED: Magnesium Oxide 400 MG Tab PO ONE (04:10)
[2025-04-17] MEDS ORDERED: Potassium Chloride 20 MEQ TabCR PO ONE (04:10)
[2025-04-17] MEDS ORDERED: Potassium Chl 20MEQ/Water100ML 100 ML IV SCH (04:35)
[2025-04-17] MEDS ORDERED: Mag Sulfate 1 GM/D5% 100ML 100 ML IV ONE (04:40)
[2025-04-17] MEDS ORDERED: Potassium Chloride 40 MEQ in NS 250 ML IV ONE (05:30)
[2025-04-17] MEDS ORDERED: Prochlorperazine Edisylate 10 mg Vial IV PRN (05:45)
[2025-04-17] MEDS ORDERED: Ondansetron HCl 2 MG / ML 2ML Vial IV PRN (05:45)
[2025-04-17] MEDS ORDERED: FentaNYL Citrate 50 MCG/ML 2 ML Injection IV PRN (05:50)
[2025-04-17] MEDS ORDERED: NS 1,000 ML IV ONE (05:50)
[2025-04-17] MEDS ORDERED: Pantoprazole Sodium 40 MG Injection IV SCH (06:00)
[2025-04-17] MEDS ORDERED: Insulin Glargine-Yfgn 100 Unit/mL 3 ML SYR SC ONE (06:00)
[2025-04-17 06:39] LABS: Bun/Creatinine Ratio 10.5 (12.0-20.0); Creatinine, Blood 0.76 mg/dL (0.60-1.20); Potassium, Blood 3.4 mmol/L (3.5-5.5)
[2025-04-17] MEDS ORDERED: Insulin Human Lispro 100 Units/ML 3ML Syringe SC SCH (07:30)
[2025-04-17 08:34] VITALS: BP 163/101
[2025-04-17] MEDS ORDERED: Enoxaparin 40 MG/0.4 ML SYR SC SCH (09:00)
[2025-04-17] MEDS ORDERED: DiphenhydrAMINE HCl 50 MG/ML 1ML Vial IV PRN (10:20)
[2025-04-17 12:24] LABS: Bun/Creatinine Ratio 10.6 (12.0-20.0); Calcium, Blood 8.4 mg/dL (8.5-10.1); Creatinine, Blood 0.85 mg/dL (0.60-1.20); Potassium, Blood 3.5 mmol/L (3.5-5.5)
[2025-04-17 17:32] VITALS: BP 147/91
--- NOTE | 2025-04-17 18:03 | NUR ---
SHIFT SUMMARY: PT A&O X4. PLEASANT AND COOPERATIVE WITH CARE. NPO ORDER IN PLACE BUT PT TOLERATING ICE CHIPS AT THIS TIME. AC/HS BLOOD SUGARS IN PLACE. BLOOD SUGAR FROM BREAKFAST TO LUNCH FROM 108 TO 250. PT HAD EMESIS TWICE SINCE ADMISSION. SPOKE WITH DR. HU ABOUT ORDERING BENEDRYL PT STATES THIS HAS WORKED IN THE PAST FOR N/V. INDEPENDENT IN ROOM. ONE TIME BAG NS INFUSING @ 100/HR. CALL LIGHT IN REACH. BED IN LOWEST POSITION.
[2025-04-17 18:12] LABS: Bun/Creatinine Ratio 11.3 (12.0-20.0); Calcium, Blood 8.5 mg/dL (8.5-10.1); Creatinine, Blood 0.79 mg/dL (0.60-1.20); Potassium, Blood 4.2 mmol/L (3.5-5.5)
[2025-04-17 20:22] VITALS: BP 128/84
[2025-04-18] VITALS (47 sets, daily range): BP systolic 86–162; BP diastolic 45–120
[2025-04-18 02:30] LABS: BASOPHILS ABSOLUTE AUTO 0.03 K/mm3 (0.00-0.23); BASOPHILS PERCENT AUTO 0 % (0-2); EOSINOPHILS ABSOLUTE AUTO 0.06 K/mm3 (0.00-0.68); EOSINOPHILS PERCENT AUTO 1 % (0-6); Hematocrit 36.3 % (37.0-53.0); Hemoglobin 11.6 g/dL (13.5-17.5); IMMATURE GRAN ABSOLUTE AUTO 0.03 K/mm3 (0.00-0.10); IMMATURE GRAN PERCENT AUTO 0 % (0-1); LYMPHOCYTES ABSOLUTE AUTO 1.61 K/mm3 (0.84-5.20); LYMPHOCYTES PERCENT AUTO 18 % (21-46); MONOCYTES ABSOLUTE AUTO 0.36 K/mm3 (0.16-1.47); MONOCYTES PERCENT AUTO 4 % (4-13); Mean Corpuscular HGB 27.1 pg (26.0-34.0); Mean Corpuscular Volume 85 fL (80-100); Mean Platelet Volume 10.1 fL (9.1-12.4); NEUTROPHILS PERCENT AUTO 77 % (41-73); Platelet Count 335 K/mm3 (150-400); RDW Coefficient Variation 13.7 % (11.7-14.2); RDW Standard Deviation 42.1 fL (35.1-46.3); Red Blood Cell Count 4.28 M/mm3 (4.30-5.90); White Blood Cell Count 8.89 K/mm3 (4.00-11.30)
[2025-04-18 02:56] LABS: Albumin, Blood 3.1 g/dL (3.4-5.0); Albumin/Globulin Ratio 0.9 (0.8-1.8); Bilirubin, Total 1.3 mg/dL (0.1-1.0); Bun/Creatinine Ratio 15.9 (12.0-20.0); Calcium, Blood 8.4 mg/dL (8.5-10.1); Creatinine, Blood 0.88 mg/dL (0.60-1.20); Globulin, Blood 3.3 g/dL (2.2-4.0); Potassium, Blood 4.6 mmol/L (3.5-5.5); Total Protein, Blood 6.4 g/dL (6.4-8.2)
[2025-04-18] MEDS ORDERED: Insulin Glargine-Yfgn 100 Unit/mL 3 ML SYR SC ONE (04:50)
[2025-04-18] MEDS ORDERED: Insulin Human Lispro 100 Units/ML 3ML Syringe SC ONE (05:10)
[2025-04-18 06:33] LABS: Glucose, Blood 729 mg/dL (70-99)
[2025-04-18] MEDS ORDERED: Insulin Human Regular 100 UNIT in NS 100 ML IV SCH (06:55)
[2025-04-18 07:19] LABS: Bun/Creatinine Ratio 19.7 (12.0-20.0); Calcium, Blood 8.7 mg/dL (8.5-10.1); Creatinine, Blood 0.96 mg/dL (0.60-1.20); Potassium, Blood 5.2 mmol/L (3.5-5.5)
--- NOTE | 2025-04-18 07:50 | NUR ---
SO STARTING AT 0630 A HIGH GLUCOSE VALUE TRIGGERED A CALL TO JORDI AND PATIENT WAS TO BE TRANSFERRED TO ICU FOR HEPARIN DRIP. I CALLED REPORT TO KALEB AND PATIENT WAS TAKEN VIA W/C TO BED 12.
[2025-04-18 07:53] LABS: Glucose, Blood 560 mg/dL (70-99)
[2025-04-18] MEDS ORDERED: NS 1,000 ML IV SCH (07:55)
[2025-04-18 08:49] LABS: Glucose, Blood 389 mg/dL (70-99)
--- NOTE | 2025-04-18 08:56 | NUR ---
ASSUMPTION OF CARE/TRANSFER TO ICU PT TRASNFERED TO ICU VIA WHEELCHAIR. PT TRANSFERED TO ICU BED VIA SBA. PT ALERT AND ORIENTED X4 ANSWERS QUESTIONS APPROPRIATLEY, FOLLOWS DIRECTION WHEN PROMPTED AND IS ABLE TO MAKE HIS NEEDS KNOWN. PT MOVES EXTREMITIES EQUALLY BILATERALLY. HR 90-140'S SINUS, MAP >65. PT ON RA, OXYGEN SATURATION >95%. ABDOMEN SOFT, BOWEL TONES HYPOACTIVE. PT COMPLAINING OF NUAESEA, NO VOMITING, MEDICATED PER EMAR FOR NAUSEA. URINAL AT THE BEDSIDE. PIV IN PLACE TO RFA AND LFA, POWERGLIDE IN PLACE TO YU. NS INFUSING AT 350MLS/HR, INSULIN INFUSING AT 9.2UNITS/HR. BED IN LOWEST POSITION, CALL LIGHT WITHIN REACH, CARE CONTINUES.
[2025-04-18 09:24] LABS: Base Excess Venous -5.8 mmol/L; PCO2 Venous 34.3 mmHg (38-42); pH Blood Venous 7.37 (7.34-7.37)
[2025-04-18 09:55] LABS: Bun/Creatinine Ratio 17.7 (12.0-20.0); Calcium, Blood 8.4 mg/dL (8.5-10.1); Creatinine, Blood 0.9 mg/dL (0.60-1.20)
[2025-04-18] MEDS ORDERED: D5W-1/2NS KCl 20mEq 1,000 ML IV SCH (10:15)
[2025-04-18 13:12] LABS: Bun/Creatinine Ratio 15.1 (12.0-20.0); Calcium, Blood 8.6 mg/dL (8.5-10.1); Creatinine, Blood 0.86 mg/dL (0.60-1.20)
[2025-04-18] MEDS ORDERED: Nicotine 14 MG PATCH TOP SCH (14:00)
[2025-04-18] MEDS ORDERED: Insulin Human Lispro 100 Units/ML 3ML Syringe SC SCH ×2 (16:30→21:30)
[2025-04-18 17:06] LABS: Calcium, Blood 8.3 mg/dL (8.5-10.1); Creatinine, Blood 0.83 mg/dL (0.60-1.20); Potassium, Blood 3.9 mmol/L (3.5-5.5)
[2025-04-18] MEDS ORDERED: Insulin NPH 100 Unit / ML 10ML Vial SC ONE (17:30)
[2025-04-18] MEDS ORDERED: Potassium Chloride 10 Meq Tablet SA PO ONE (17:50)
--- NOTE | 2025-04-18 17:55 | NUR ---
SHIFT SUMMARY PT CONTINUES TO REST IN BED, ALERT AND ORIENTED X4, PT COOPERATIVE WITH CARE. PT ANSWERS QUESTIONS APPROPRIATELY, FOLLOWS DIRECTION WHEN PROMPTED AND IS ABLE TO MAKE HIS NEEDS KNOWN. PT AMBULATES IN THE ROOM INDEPENDENTLY. PT DENIES PAIN THIS SHIFT. HR 80-140'S SINUS, MAP >65, PT DENIES CP/PRESSURE. PT ON RA, OXYGEN SATURATION >95%. ABDOMEN SOFT, BOWEL TONES ACTIVE THROUGHOUT, PT COMPLAINING OF NAUSEA, NO VOMITING. MEDICATED PER EMAR FOR NAUSEA WITH GOOD EFFECT. PT USES URINAL TO VOID. PIV IN PLACE TO RFA AND LAC, POWERGLIDE IN PLACE TO YU. INSULIN INFUSING AT 0.75UNITS/HR, SEE FLOWSHEET FOR TITRATIONS. D5 1/2 NS INFUSING AT 200MLS/HR. PT GIVEN SHORT AND LONG ACTING INSULIN, GIVEN DINNER. PT REMIAINING ON INSULIN DRIP FOR TWO HOURS AFTER GIVEN SUBQ INSULIN PER DR. HU. BED IN LOWEST POSITION, CALL LIGHT WITHIN REACH, CARE CONTINUES.
[2025-04-18 21:53] LABS: Bun/Creatinine Ratio 13.2 (12.0-20.0); Creatinine, Blood 0.83 mg/dL (0.60-1.20); Potassium, Blood 4.2 mmol/L (3.5-5.5)
[2025-04-19 04:10] VITALS: BP 150/91
--- NOTE | 2025-04-19 04:12 | NUR ---
PT MOVED TO [facility] 12 AT APPROXIMATELY 0355.
[2025-04-19 05:08] LABS: Bun/Creatinine Ratio 12.7 (12.0-20.0); Calcium, Blood 8.5 mg/dL (8.5-10.1); Creatinine, Blood 0.86 mg/dL (0.60-1.20); Potassium, Blood 3.5 mmol/L (3.5-5.5)
--- NOTE | 2025-04-19 05:14 | NUR ---
ASSUMPTION OF CARE: PT ARRIVED FROM ICU TO PCU 12. SKIN SWARM DONE. DEXCOM NOTED TO LOWER BACK OTHERWISE SKIN WNL. PT ALERT AND ORIENTED X 4. INDEPENDENT WITH AMBULATION. MEDS FROM ICU PLACED IN PT LOCKBOX. NO TELE ORDERS. VSS. PT ON RA. PT SHOWERED. PRN COMPAZINE GIVEN FOR NAUSEA. WILL CONTINUE TO MONITOR. PLAN IS FOR D/C HOME TODAY.
[2025-04-19] MEDS ORDERED: Insulin Human Lispro 100 Units/ML 3ML Syringe SC SCH (07:30)
[2025-04-19 07:37] VITALS: BP 140/86
--- NOTE | 2025-04-19 10:42 | NUR ---
PT IV'S REMOVED. GIVEN ALL DISCHARGE PAPERWORK AND ANSWERED ANY QUESTIONS ABOUT D/C. ALL BELONGINGS TAKEN WITH AND WALKED (REFUSED WHEELCHAIR) OUT OF UNIT TO AWAITING RIDE BY TRANSPORTATION ATTENDANT.
== END 2025-04-19 10:40 | disposition home or self-care (01) | DRG 74 ==
LOC: ER 02:18 → MEDS 02:19 → ICUE 04-18 07:21 → PCU 04-19 04:00
PROVIDERS: Emergency Medicine; Family Medicine; Internal Medicine; ADMIT Specialist
DX: E10.43 Type 1 diabetes mellitus with diabetic autonomic (poly)neuropathy (principal); E87.1 Hypo-osmolality and hyponatremia; K31.84 Gastroparesis; E10.10 Type 1 diabetes mellitus with ketoacidosis without coma; F31.9 Bipolar disorder, unspecified; F41.9 Anxiety disorder, unspecified; E86.0 Dehydration; F17.210 Nicotine dependence, cigarettes, uncomplicated; F12.90 Cannabis use, unspecified, uncomplicated; E87.6 Hypokalemia; Z71.51 Drug abuse counseling and surveillance of drug abuser; M54.9 Dorsalgia, unspecified; G89.29 Other chronic pain; R11.15 Cyclical vomiting syndrome unrelated to migraine; Z86.14 Personal history of Methicillin resistant Staphylococcus aureus infection; Z79.4 Long term (current) use of insulin; Z88.6 Allergy status to analgesic agent; Z88.1 Allergy status to other antibiotic agents; Z88.8 Allergy status to other drugs, medicaments and biological substances; Z79.899 Other long term (current) drug therapy; Z88.0 Allergy status to penicillin; Z88.2 Allergy status to sulfonamides
CPT/HCPCS: 36415; 71046; 80048; 80053; 81001; 82010; 82803; 82947; 83690; 83735; 85025; 93005; 93010; 96361; 96365; 96366; 96367; 96372; 96374; 96375; 96376; 99284-25; 99285-25; A9270; C1751; G0378; J0780; J1200; J1650; J1790; J1815; J2405; J2470; J3475; J3480; J7030; J7050; J7120

== ENCOUNTER 2025-05-06 03:02 | Inpatient (IN) | payer OTHER ==
[2025-05-06] VITALS (48 sets, daily range): BP systolic 117–206; BP diastolic 74–125
[~2025-05-06] VITALS: Ht 175.3 cm; Wt 91.2 kg
[2025-05-06] MEDS ORDERED: Ondansetron HCl 2 MG / ML 2ML Vial IV PRN ×2 (03:20→05:05)
[2025-05-06 03:34] LABS: BASOPHILS ABSOLUTE AUTO 0.03 K/mm3 (0.00-0.23); BASOPHILS PERCENT AUTO 0 % (0-2); EOSINOPHILS ABSOLUTE AUTO 0.00 K/mm3 (0.00-0.68); EOSINOPHILS PERCENT AUTO 0 % (0-6); Hematocrit 37.1 % (37.0-53.0); Hemoglobin 12.4 g/dL (13.5-17.5); IMMATURE GRAN ABSOLUTE AUTO 0.06 K/mm3 (0.00-0.10); IMMATURE GRAN PERCENT AUTO 0 % (0-1); LYMPHOCYTES ABSOLUTE AUTO 1.18 K/mm3 (0.84-5.20); LYMPHOCYTES PERCENT AUTO 8 % (21-46); MONOCYTES ABSOLUTE AUTO 0.37 K/mm3 (0.16-1.47); MONOCYTES PERCENT AUTO 3 % (4-13); Mean Corpuscular HGB Conc 33.4 g/dL (31.5-36.5); Mean Corpuscular Volume 83 fL (80-100); NEUTROPHILS ABSOLUTE AUTO 12.48 K/mm3 (1.96-9.15); NEUTROPHILS PERCENT AUTO 88 % (41-73); NRBC ABSOLUTE 0.00 K/mm3 (0.00-0.02); NRBC Auto 0.0 /100 WBC (0.0-0.2); Platelet Count 475 K/mm3 (150-400); RDW Coefficient Variation 15.2 % (11.7-14.2); RDW Standard Deviation 44.9 fL (35.1-46.3)
[2025-05-06] MEDS ORDERED: DiphenhydrAMINE HCl 50 MG/ML 1ML Vial IV ONE (03:55)
[2025-05-06] MEDS ORDERED: NS 1,000 ML IV SCH (03:55)
[2025-05-06] MEDS ORDERED: Prochlorperazine Edisylate 10 mg Vial IV ONE (03:55)
[2025-05-06 04:04] LABS: pH Blood Venous 7.44 (7.34-7.37)
[2025-05-06 04:34] LABS: Alanine Aminotransfer (ALT/SGP 39.0 U/L (12-78); Albumin, Blood 4.0 g/dL (3.4-5.0); Albumin/Globulin Ratio 1.0 (0.8-1.8); Anion Gap 20.0 mmol/L (3-11); Aspartate Aminotrans (AST/SGOT 25.0 U/L (12-37); Bilirubin, Total 1.1 mg/dL (0.1-1.0); Blood Urea Nitrogen 13.0 mg/dL (8-24); CO2, Blood 19.0 mmol/L (21-32); Calcium, Blood 9.4 mg/dL (8.5-10.1); Chloride, Blood 99.0 mmol/L (98-108); Creatinine, Blood 0.74 mg/dL (0.60-1.20); Globulin, Blood 4.0 g/dL (2.2-4.0); Glucose, Blood 332.0 mg/dL (70-99); Potassium, Blood 4.0 mmol/L (3.5-5.5); Sodium, Blood 134.0 mmol/L (136-145); Total Protein, Blood 8.0 g/dL (6.4-8.2)
[2025-05-06] MEDS ORDERED: Insulin Human Regular 100 UNIT in NS 100 ML IV SCH ×2 (04:40→05:10)
[2025-05-06 05:28] LABS: Source, Urine Clean Catch
[2025-05-06 05:43] LABS: Bilirubin, Urine Neg (Neg); Color, Urine Yellow (P-Yellow); Glucose Qualitative, Urine 4+ (Neg); Ketones, Urine 4+ (Neg); Leukocyte Esterase, Urine Neg (Neg); Protein, Urine 2+ (Neg); Specific Gravity, Urine 1.025 (1.003-1.022); Urobilinogen, Urine NORM (Normal)
--- NOTE | 2025-05-06 05:58 | NUR ---
ASSUMED CARE/SUMMARY PT ARRIVED VIA GURNEY WITH RN. A/OX4, ON ROOM AIR, SATS >94%. TACHY IN THE 110'S, BP STABLE. AFEBRILE. PT ACTIVELY VOMITING, RECEIVED ANTIEMETICS IN ED. PT HAS TWO PIVS WITH NS W/ KCL AND INSULIN GTT Y-SITED TO L AC AND NS PRESSURE BAGGED TO R AC. CBG WAS CHECKED ON ARRIVAL AND WAS 420. INSULIN INCREASED TO 8 UNITS/H PER DKA PROTOCOL. PT IS NOW RESTING IN BED AND APPEARS MORE COMFORTABLE. CALL LIGHT IN REACH.
[2025-05-06 06:00] LABS: Red Blood Cells, Urine 0-2 /hpf (0-2); White Blood Cells, Urine 0-2 /hpf (0-5)
[2025-05-06 06:52] LABS: Anion Gap 22.0 mmol/L (3-11); Blood Urea Nitrogen 14.0 mg/dL (8-24); CO2, Blood 16.0 mmol/L (21-32); Calcium, Blood 9.1 mg/dL (8.5-10.1); Chloride, Blood 100.0 mmol/L (98-108); Creatinine, Blood 0.8 mg/dL (0.60-1.20); Glucose, Blood 423.0 mg/dL (70-99); Potassium, Blood 4.0 mmol/L (3.5-5.5); Sodium, Blood 134.0 mmol/L (136-145)
--- NOTE | 2025-05-06 08:00 | NUR ---
ASSUMPTION OF CARE ASSUMED CARE OF PATIENT AT APPROXIMATELY 0700. PT RESTING IN BED, SLEEPING BUT AROUSABLE TO VERBAL STIMULI. PT ANSWERS QUESTIONS APPROPRIATLEY, FOLLOWS DIRECTION WHEN PROMPTED AND IS ABLE TO MAKE HIS NEEDS KNOWN. PT MOVES EXTREMITIES EQUALLY BILATERALLY, REPOSITIONS SELF IN THE BED, AND AMBULATES IN THE ROOM WITH MINIMAL ASSISTANCE WITH CORD MANAGEMENT. HR 90-110'S SINUS, MAP >65. PT ON RA, OXYGEN SATURATION >95%. ABDOMEN SOFT, BOWEL TONES ACTIVE THROUGHOUT, PT HAVING N/V, MEDICATED PER EMAR. PT USES URINAL TO VOID. PIV IN PLACE TO LAC AND RAC. INSULIN INFUSING, SEE FLOWSHEET FOR TITRATIONS. NS WITH 20MEQ KCL INFUSING AT 250MLS/HR. BED IN LOWEST POSITION, CALL LIGHT WITHIN REACH, CARE CONTINUES.
[2025-05-06] MEDS ORDERED: NS 2,000 ML IV ONE (08:40)
[2025-05-06] MEDS ORDERED: Prochlorperazine Edisylate 10 mg Vial IV PRN (08:40)
[2025-05-06] MEDS ORDERED: D5W-1/2NS KCl 20mEq 1,000 ML IV SCH (08:40)
[2025-05-06 09:04] LABS: Anion Gap 19.0 mmol/L (3-11); Blood Urea Nitrogen 12.0 mg/dL (8-24); CO2, Blood 16.0 mmol/L (21-32); Calcium, Blood 9.6 mg/dL (8.5-10.1); Chloride, Blood 107.0 mmol/L (98-108); Creatinine, Blood 0.75 mg/dL (0.60-1.20); Glucose, Blood 228.0 mg/dL (70-99); Potassium, Blood 4.4 mmol/L (3.5-5.5); Sodium, Blood 138.0 mmol/L (136-145)
[2025-05-06] MEDS ORDERED: DiphenhydrAMINE HCl 50 MG/ML 1ML Vial IV PRN (10:05)
--- NOTE | 2025-05-06 10:19 | NUR ---
PT UPDATE PT HAVING INVOLUNTARY SPASMS AND DIFFICULTY BREATHING, PT STATES THAT THIS HAPPENS WITH CERTAIN MEDICATIONS. CALL PLACED TO DR. POWELL, ORDER FOR BENADRYL RECEIVED AND ADMINISTERED PER EMAR. PT NOW RESTING QUIETLY IN BED, EPISODE SEEMS TO HAVE PASSED. CARE CONTINUES.
[2025-05-06 10:27] LABS: Anion Gap 13.0 mmol/L (3-11); Blood Urea Nitrogen 12.0 mg/dL (8-24); CO2, Blood 23.0 mmol/L (21-32); Calcium, Blood 9.2 mg/dL (8.5-10.1); Chloride, Blood 107.0 mmol/L (98-108); Creatinine, Blood 0.62 mg/dL (0.60-1.20); Glucose, Blood 221.0 mg/dL (70-99); Potassium, Blood 5.0 mmol/L (3.5-5.5); Sodium, Blood 138.0 mmol/L (136-145)
[2025-05-06 12:13] LABS: Anion Gap 12.0 mmol/L (3-11); Blood Urea Nitrogen 10.0 mg/dL (8-24); CO2, Blood 24.0 mmol/L (21-32); Calcium, Blood 8.5 mg/dL (8.5-10.1); Chloride, Blood 108.0 mmol/L (98-108); Creatinine, Blood 0.71 mg/dL (0.60-1.20); Glucose, Blood 234.0 mg/dL (70-99); Potassium, Blood 3.9 mmol/L (3.5-5.5); Sodium, Blood 140.0 mmol/L (136-145)
--- NOTE | 2025-05-06 12:26 | NUR ---
PT UPDATE HOME MEDICATION LIST RECONCILLED WITH PTS . CARE CONTINUES.
[2025-05-06] MEDS ORDERED: NS 1,000 ML IV ONE (13:20)
[2025-05-06 16:29] LABS: Alanine Aminotransfer (ALT/SGP 28.0 U/L (12-78); Albumin, Blood 3.1 g/dL (3.4-5.0); Albumin/Globulin Ratio 0.9 (0.8-1.8); Anion Gap 6.0 mmol/L (3-11); Aspartate Aminotrans (AST/SGOT 11.0 U/L (12-37); Bilirubin, Total 0.8 mg/dL (0.1-1.0); Blood Urea Nitrogen 8.0 mg/dL (8-24); CO2, Blood 29.0 mmol/L (21-32); Calcium, Blood 8.7 mg/dL (8.5-10.1); Chloride, Blood 110.0 mmol/L (98-108); Creatinine, Blood 0.64 mg/dL (0.60-1.20); Globulin, Blood 3.4 g/dL (2.2-4.0); Glucose, Blood 155.0 mg/dL (70-99); Potassium, Blood 3.9 mmol/L (3.5-5.5); Sodium, Blood 141.0 mmol/L (136-145); Total Protein, Blood 6.5 g/dL (6.4-8.2)
--- NOTE | 2025-05-06 17:02 | NUR ---
SHIFT SUMMARY NO ACUTE CHANGES THIS SHIFT. PT CONTINUES TO REST IN BED, SLEEPING BUT AROUSABLE. PT ANSWERS QUESTIONS APPROPRIATELY, FOLLOWS DIRECTION WHEN PROMPTED AND IS ABLE TO MAKE HIS NEEDS KNOWN. PT MOVES EXTREMITIES EQUALLY BILATERALLY, REPOSITIONS SELF IN BED FOR COMFORT AND AMBULATES IN THE ROOM WITH MINIMAL HELP. HR 80-130'S SINUS, MAP >65. PT ON RA, OXYGEN SATURATION >95%. ABDOMEN SOFT, BOWEL TONES ACTIVE THROUGHOUT. PT HAS HAD INTERMITENT NAUSEA AND VOMITING THIS SHIFT. PT USES URINAL TO VOID. POWERGLIDE IN PLACE TO ION. INSULIN INFUSING, SEE FLOWSHEET FOR TITRATIONS. D5 1/2 NS WITH 20 MEQ KCL INFUSING AT 150MLS/HR. BED IN LOWEST POSITION, CALL LIGHT WITHIN REACH, CARE CONTINUES.
--- NOTE | 2025-05-06 19:25 | NUR ---
ASSESSMENT/ ASSUMED CARE PT RESTING QUIETLY WITH EYES CLOSED. AWAKENS EASILY TO VERBAL STIMULI. A&O X4. SPEECH CLEAR AND APPROP. DENIES PAIN OR DISCOMFORT AT THIS TIME. LUNGS CLEAR ON ROOMAIR. RESP EVEN AND NONLABORED. DENIES SOB OR COUGH. HEART RATE REGULAR IN THE 80-90'S. DENIES CHEST PAIN OR PRESSURE. SKIN WARM AND DRY. MAEW. TURING AND MOVING SELF IN BED. BT+ ABD SOFT AND NONTENDER. DENIES N/V. IV POWER GLIDE TO RIGHT UPPER ARM. SITE CLEAR AND DRSG INTACT. ABLE TO DRAW BLOOD AND FLUSH WITHOUT DIFFICULTY. D5 1/2 NS WITH 20 KCL AT 150 ML/HR AND INSULIN GTT INFUSING. PT DENIES NEEDS AT THIS TIME. CALL LIGHT WITHIN REACH.
[2025-05-06 21:14] LABS: Alanine Aminotransfer (ALT/SGP 28.0 U/L (12-78); Albumin, Blood 2.8 g/dL (3.4-5.0); Albumin/Globulin Ratio 0.9 (0.8-1.8); Anion Gap 7.0 mmol/L (3-11); Aspartate Aminotrans (AST/SGOT 14.0 U/L (12-37); Bilirubin, Total 0.7 mg/dL (0.1-1.0); Blood Urea Nitrogen 6.0 mg/dL (8-24); CO2, Blood 27.0 mmol/L (21-32); Calcium, Blood 8.6 mg/dL (8.5-10.1); Chloride, Blood 110.0 mmol/L (98-108); Creatinine, Blood 0.62 mg/dL (0.60-1.20); Globulin, Blood 3.1 g/dL (2.2-4.0); Glucose, Blood 155.0 mg/dL (70-99); Potassium, Blood 3.5 mmol/L (3.5-5.5); Sodium, Blood 140.0 mmol/L (136-145); Total Protein, Blood 5.9 g/dL (6.4-8.2)
[2025-05-06] MEDS ORDERED: Insulin Glargine-Yfgn 100 Unit/mL 3 ML SYR SC SCH (21:25)
--- NOTE | 2025-05-06 22:26 | NUR ---
PT C/O NAUSEA AND HEARTBURN. UNABLE TO EAT. LONG ACTING INSULIN HELD. CALL TO DR. BETHEA REGARDING NAUSEA AND HEARTBURN. HOLD TRANSITION OFF INSULIN GTT TONIGHT, WILL TRY AGAIN IN THE MORNING.
[2025-05-07] VITALS (23 sets, daily range): BP systolic 134–187; BP diastolic 77–130
[2025-05-07 00:03] LABS: Alanine Aminotransfer (ALT/SGP 27.0 U/L (12-78); Albumin, Blood 3.0 g/dL (3.4-5.0); Albumin/Globulin Ratio 1.0 (0.8-1.8); Anion Gap 8.0 mmol/L (3-11); Aspartate Aminotrans (AST/SGOT 15.0 U/L (12-37); Bilirubin, Total 0.8 mg/dL (0.1-1.0); Blood Urea Nitrogen 5.0 mg/dL (8-24); CO2, Blood 28.0 mmol/L (21-32); Calcium, Blood 8.1 mg/dL (8.5-10.1); Chloride, Blood 109.0 mmol/L (98-108); Creatinine, Blood 0.74 mg/dL (0.60-1.20); Globulin, Blood 2.9 g/dL (2.2-4.0); Glucose, Blood 177.0 mg/dL (70-99); Potassium, Blood 3.6 mmol/L (3.5-5.5); Sodium, Blood 141.0 mmol/L (136-145); Total Protein, Blood 5.9 g/dL (6.4-8.2)
[2025-05-07] MEDS ORDERED: Metoclopramide HCl 5MG / ML 2ML Vial IV PRN (01:10)
--- NOTE | 2025-05-07 01:10 | NUR ---
PT HAVING EMESIS 700 ML GREEN BILE. CALL TO DR BETHEA REGARDING NAUSEA. SEE NEW ORDERS
[2025-05-07] MEDS ORDERED: LORazepam 2 MG/ML 1ML Injection IV PRN (01:25)
--- NOTE | 2025-05-07 03:48 | NUR ---
PT AWAKE SITTING UP IN BED. HAVING NAUSEA. MED WITH ATIVAN SL
[2025-05-07 03:59] LABS: Alanine Aminotransfer (ALT/SGP 27.0 U/L (12-78); Albumin, Blood 3.2 g/dL (3.4-5.0); Albumin/Globulin Ratio 1.1 (0.8-1.8); Anion Gap 7.0 mmol/L (3-11); Aspartate Aminotrans (AST/SGOT 16.0 U/L (12-37); Bilirubin, Total 0.7 mg/dL (0.1-1.0); Blood Urea Nitrogen 5.0 mg/dL (8-24); CO2, Blood 30.0 mmol/L (21-32); Calcium, Blood 8.5 mg/dL (8.5-10.1); Chloride, Blood 107.0 mmol/L (98-108); Creatinine, Blood 0.72 mg/dL (0.60-1.20); Globulin, Blood 2.9 g/dL (2.2-4.0); Glucose, Blood 175.0 mg/dL (70-99); Potassium, Blood 3.7 mmol/L (3.5-5.5); Sodium, Blood 140.0 mmol/L (136-145); Total Protein, Blood 6.1 g/dL (6.4-8.2)
--- NOTE | 2025-05-07 06:01 | NUR ---
SHIFT SUMMARY PT CONT ON INSULIN GTT DUE TO NAUSEA AND VOMITING. UNABLE TO TRANSITION OFF AND TO SLIDING SCALE INSULIN. MED WITH ZOFRAN AND ATIVAN FOR N/V. PT ALSO C/O HEART BURN, MED WITH TUMS. PT STATED ON O2 AT 2 LITERS DURING THE NIGHT DUE TO PERIODS OF APNEA WHILE SLEEPING. PT STATES,"I KNOW I HAVE SLEEP APNEA. I NEED TO HAVE A SLEEP STUDY AND A CPAP". PT MOVING AND TURNING SELF IN BED. ELEVATED BP NOTED AT TIMES. REPORT TO ON COMING NURSE
[2025-05-07] MEDS ORDERED: Enoxaparin 40 MG/0.4 ML SYR SC SCH (09:00)
[2025-05-07] MEDS ORDERED: NS 1,000 ML IV SCH (09:05)
[2025-05-07 09:22] LABS: Albumin, Blood 3.0 g/dL (3.4-5.0); Anion Gap 8 mmol/L (3-11); Blood Urea Nitrogen 5 mg/dL (8-24); CO2, Blood 28 mmol/L (21-32); Calcium, Blood 9.0 mg/dL (8.5-10.1); Chloride, Blood 107 mmol/L (98-108); Creatinine, Blood 0.71 mg/dL (0.60-1.20); Glucose, Blood 168 mg/dL (70-99); Magnesium, Blood 1.6 mg/dL (1.6-2.4); Phosphorus, Blood 3.3 mg/dL (2.5-4.9); Potassium, Blood 3.7 mmol/L (3.5-5.5); Sodium, Blood 139 mmol/L (136-145)
[2025-05-07] MEDS ORDERED: Insulin Glargine-Yfgn 100 Unit/mL 3 ML SYR SC SCH (10:00)
[2025-05-07] MEDS ORDERED: Insulin Human Lispro 100 Units/ML 3ML Syringe SC SCH ×3 (11:30→16:00)
--- NOTE | 2025-05-07 21:00 | NUR ---
ASSUMPTION OF CARE CARE OF PT ASSUMED FOLLOWING BEDSIDE SHIFT REPORT FROM DAY RN. PT SLEEPING. AWAKES TO VOICE AND IS ALERT AND ORIENTED. PT ASKS FOR JUICE. HE IS NAUSEATED. TREATED WITH SUBLINGUAL ATIVAN, ZOFRAN, COOL RAG. NAUSEA DECREASES SOME. PT VOMITS 800ML. 98.4 F. NO PAIN. SINUS RHYTHYM IN THE 90'S WITH STABLE BP. TELE ORDERED FOR OFF. WILL REMOVE EXCEPT FOR SPO2 DUE TO SLEEP APNEA. NO CHEST PAIN/PRESSURE, SOB. NO AB PAIN. LUNGS CLEAR. BOWEL SOUNDS ACTIVE. WILL REVIEW AND CONTINUE PLAN OF CARE INCLUDING AC/HS GLUCOSE CHECKS.
[2025-05-08] VITALS (7 sets, daily range): BP systolic 141–182; BP diastolic 75–119
--- NOTE | 2025-05-08 01:15 | NUR ---
TRANSFER PT ARRIVED FROM ICU AT THIS TIME. IS A/OX4 AND ABLE TO TRANSFER SELF INTO BED. DENIES CP, PRESSURE, N/T. PT STARTED VOMITING ONCE IN BED. HTN NOTED WITH BP. MEDICATED PER EMAR FOR N/V AND ANXIETY. ON CLEAR LIQUID DIET, STATES ICED TEA IS THE ONLY THING HE WANTS TO DRINK WATER INCREASES N/V. SPO2 AT 99% ON RA. CONT BIOX IN PLACE R/T DESAT WITH SLEEP. SCDS APPLIED. PT PLEASANT AND COOPERATIVE WITH CARE. ORIENTATION TO ROOM PROVIDE. PT DENIES NEEDS AT THIS TIME, REQUESTING TO SLEEP. HAS CALL LIGHT IN REACH.
--- NOTE | 2025-05-08 01:29 | NUR ---
TRANSFER OF CARE AFTER GIVING REPORT TO RECEIVING NURSE IN SURGICAL UNIT, PT WAS TRANSFERRED AT 0120 VIA GURNEY TO ROOM 229. AT THE TIME PT IN MOD DISTRESS RELATED TO NAUSEA. ALERT AND ORIENTED TO ALL, AMBULATES WELL, AND IS NEUROVASCULARLY INTACT, GROSSLY. PT WAS IN SINUS RHTHYM BEFORE TELE WAS D/C'D AND ALL BP MEASUREMENTS WERE STABLE. PT WAS PUT ON 2L NC FOR SLEEP APNEA (UNDIAGNOSED). PT DENIED CHEST PAIN/PRESSURE AND SOB. PT VOMITED 1500ML DURING SHIFT BEFORE TRANSFER (BILOUS). PT TRANSFERRED WITH CHART, PT BELONGINGS INCLUDING PHONE.
--- NOTE | 2025-05-08 01:54 | NUR ---
TRANSFER PT TRANSFER FROM ICU TO 229 APPROX 0125. PT IND TRANSFER TO BED. BECAME NAUSEATED & STARTED RETCHING, GAVE EMESIS BAG. JACKIE Hernandez TO ASSUME CARE OF PT, MEDICATED W/SL ATIVAN PER EMAR. BP ELEVATED, HOWEVER IT WAS TAKEN WHILE PT RETCHING & THROWING UP. ORIENTED TO & CALL LIGHT.
[2025-05-08 05:43] LABS: Hematocrit 31.8 % (37.0-53.0); Hemoglobin 10.5 g/dL (13.5-17.5); Mean Corpuscular HGB Conc 33.0 g/dL (31.5-36.5); Mean Corpuscular Volume 84 fL (80-100); NRBC ABSOLUTE 0.00 K/mm3 (0.00-0.02); NRBC Auto 0.0 /100 WBC (0.0-0.2); Platelet Count 313 K/mm3 (150-400); RDW Coefficient Variation 15.0 % (11.7-14.2); RDW Standard Deviation 45.3 fL (35.1-46.3)
[2025-05-08 06:35] LABS: Anion Gap 7.0 mmol/L (3-11); Blood Urea Nitrogen 4.0 mg/dL (8-24); CO2, Blood 30.0 mmol/L (21-32); Calcium, Blood 8.5 mg/dL (8.5-10.1); Chloride, Blood 104.0 mmol/L (98-108); Creatinine, Blood 0.74 mg/dL (0.60-1.20); Glucose, Blood 62.0 mg/dL (70-99); Potassium, Blood 3.0 mmol/L (3.5-5.5); Sodium, Blood 138.0 mmol/L (136-145)
--- NOTE | 2025-05-08 06:35 | NUR ---
SHIFT SUMMARY NO CHANGES IN PATIENTS STATUS SINCE TRANSFER. PT APPEARS TO HAVE SLEPT SINCE ARRIVING TO UNIT. SPO2 AT 95% ON 2L NC, CONT BIOX IN PLACE. MEDICATED X1 FOR NAUSEA X 1. JONH 500ML PO INTAKE. PT CURRENTLY RESTING IN BED WITH EYES CLOSED, RESP EVEN, AND CALL LIGHT IN REACH. AWAITING [facility]OR[facility] LABS. WILL GIVE REPORT ON COMING RN.
[2025-05-08] MEDS ORDERED: Insulin Human Lispro 100 Units/ML 3ML Syringe SC SCH (16:30)
--- NOTE | 2025-05-08 17:20 | NUR ---
SHIFT SUMMARY PATIENT IS AOX4, USES 2L NC AT NIGHT, CONT PULSE OX ON SPO2 REMAIN >90%. PATIENT GLUCOSE THIS AM 64, JUICE GIVEN AND ENCOURAGED JELLO PATIENT IS ON CL DIET. PATIENT TOLERATING ICE TEA, AND CRANBERRY JUICE. GLUCOSE UP TO 140. PATIENT ABLE TO SHOWER THIS AFTERNOON. IV K+ INFUSED TODAY. PATIENT RESTS T/O SHIFT A FEW BOUGHTS OF NAUSEA AND MEDICATED PER EMAR. DENIES NEEDS AT THIS TIME, VSS. CALL LIGHT IN REACH.
[2025-05-08] MEDS ORDERED: Insulin Glargine-Yfgn 100 Unit/mL 3 ML SYR SC SCH (21:00)
[2025-05-09 03:31] VITALS: BP 147/104
--- NOTE | 2025-05-09 05:14 | NUR ---
SHIFT SUMMARY PT IRRITABLE, ANGRY AT BEGINNING OF SHIFT. STATED "I WANT MY ZOFRAN & ATIVAN." TRIED INFORMING PT WE DONT NORMALLY MEDICATE W/2 ANTIEMETICS @1X, PT GOT EVEN MORE IRRITATED STATING "OH ARE YOU GOING TO TELL ME I CAN ONLY HAVE THE ATIVAN FOR ANXIETY?" STATED "NO," PT THEN SAID "OKAY JUST GIVE ME MY ATIVAN." MEDICATED W/0.5 MG PO ATIVAN 1x @HS & NO FURTHER NAUSEA REPORTED. PT DID HAVE 1 EPISODE 200ML CLEAR LIQUID EMESIS THIS SHIFT. INFORMED PT I NEED HIM TO TELL ME WHEN HES NOT FEELING WELL SO I CAN HELP. PT DID NOT REQUEST FURTHER ANTIEMETICS @THIS TIME. AOX4. VSS. CALL LIGHT IN REACH & PT ABLE TO MAKE NEEDS KNOWN.
[2025-05-09 07:04] LABS: Albumin, Blood 3.0 g/dL (3.4-5.0); Anion Gap 6 mmol/L (3-11); Blood Urea Nitrogen 5 mg/dL (8-24); CO2, Blood 32 mmol/L (21-32); Calcium, Blood 8.7 mg/dL (8.5-10.1); Chloride, Blood 103 mmol/L (98-108); Creatinine, Blood 0.75 mg/dL (0.60-1.20); Glucose, Blood 89 mg/dL (70-99); Magnesium, Blood 1.8 mg/dL (1.6-2.4); Phosphorus, Blood 4.3 mg/dL (2.5-4.9); Potassium, Blood 3.4 mmol/L (3.5-5.5); Sodium, Blood 138 mmol/L (136-145)
[2025-05-09 08:16] VITALS: BP 163/96
--- NOTE | 2025-05-09 14:25 | NUR ---
DISCHARGE PT ABLE TO TOLERATE EATING LUNCH. DENIES FURTHER NAUSEA SINCE THIS AM. IND IN ROOM. ALL DISCHARGE INSTRUCTIONS GONE OVER WITH PATIENT. POWERGLIDE REMOVED WNL. PT ELECTS TO AMBULATE OUT ON HIS OWN. DENIES FURTHER NEEDS AT THIS TIME.
== END 2025-05-09 15:02 | disposition home or self-care (01) | DRG 638 ==
LOC: ER 03:02 → ICUE 05:02 → SURS 05-08 01:27
PROVIDERS: Emergency Medicine; Family Medicine; Internal Medicine; ADMIT Internal Medicine
DX: E10.10 Type 1 diabetes mellitus with ketoacidosis without coma (principal); E87.1 Hypo-osmolality and hyponatremia; R11.2 Nausea with vomiting, unspecified; F12.988 Cannabis use, unspecified with other cannabis-induced disorder; F41.9 Anxiety disorder, unspecified; F31.9 Bipolar disorder, unspecified; R25.8 Other abnormal involuntary movements; E10.649 Type 1 diabetes mellitus with hypoglycemia without coma; E87.6 Hypokalemia; Z79.4 Long term (current) use of insulin; Z88.0 Allergy status to penicillin; Z88.8 Allergy status to other drugs, medicaments and biological substances; Z86.14 Personal history of Methicillin resistant Staphylococcus aureus infection; T38.3X6A Underdosing of insulin and oral hypoglycemic [antidiabetic] drugs, initial encounter; Z91.138 Patient's unintentional underdosing of medication regimen for other reason
CPT/HCPCS: 36415; 74022; 80048; 80053; 80069; 81001; 82010; 82803; 82947; 83690; 83735; 85025; 85027; 94762; 96361; 96374; 96375; 99285-25; A9270; C1751; J0780; J1200; J1650; J1815; J2405; J3480; J7030; J7050

== ENCOUNTER 2025-08-11 20:45 | Emergency (ER) | payer OTHER ==
[~2025-08-11] VITALS: Ht 177.8 cm; Wt 95.2 kg
[2025-08-11] MEDS ORDERED: Ondansetron HCl 2 MG / ML 2ML Vial IV PRN (21:25)
[2025-08-11 21:56] LABS: BASOPHILS ABSOLUTE AUTO 0.02 K/mm3 (0.00-0.23); BASOPHILS PERCENT AUTO 0 % (0-2); EOSINOPHILS ABSOLUTE AUTO 0.00 K/mm3 (0.00-0.68); EOSINOPHILS PERCENT AUTO 0 % (0-6); Hematocrit 34.2 % (37.0-53.0); Hemoglobin 11.1 g/dL (13.5-17.5); IMMATURE GRAN ABSOLUTE AUTO 0.02 K/mm3 (0.00-0.10); IMMATURE GRAN PERCENT AUTO 0 % (0-1); LYMPHOCYTES ABSOLUTE AUTO 0.72 K/mm3 (0.84-5.20); LYMPHOCYTES PERCENT AUTO 7 % (21-46); MONOCYTES ABSOLUTE AUTO 0.22 K/mm3 (0.16-1.47); MONOCYTES PERCENT AUTO 2 % (4-13); Mean Corpuscular HGB Conc 32.5 g/dL (31.5-36.5); Mean Corpuscular Volume 73 fL (80-100); NEUTROPHILS ABSOLUTE AUTO 9.11 K/mm3 (1.96-9.15); NEUTROPHILS PERCENT AUTO 90 % (41-73); NRBC ABSOLUTE 0.00 K/mm3 (0.00-0.02); NRBC Auto 0.0 /100 WBC (0.0-0.2); Platelet Count 480 K/mm3 (150-400); RDW Coefficient Variation 14.5 % (11.7-14.2); RDW Standard Deviation 37.7 fL (35.1-46.3)
[2025-08-11 22:13] LABS: Alanine Aminotransfer (ALT/SGP 25.0 U/L (12-78); Albumin, Blood 4.6 g/dL (3.4-5.0); Albumin/Globulin Ratio 1.2 (0.8-1.8); Anion Gap 15.0 mmol/L (3-11); Aspartate Aminotrans (AST/SGOT 19.0 U/L (12-37); Bilirubin, Total 0.8 mg/dL (0.1-1.0); Blood Urea Nitrogen 16.0 mg/dL (8-24); CO2, Blood 23.0 mmol/L (21-32); Calcium, Blood 10.2 mg/dL (8.5-10.1); Chloride, Blood 102.0 mmol/L (98-108); Creatinine, Blood 0.72 mg/dL (0.60-1.20); Globulin, Blood 3.8 g/dL (2.2-4.0); Glucose, Blood 252.0 mg/dL (70-99); Potassium, Blood 3.6 mmol/L (3.5-5.5); Sodium, Blood 136.0 mmol/L (136-145); Total Protein, Blood 8.4 g/dL (6.4-8.2)
[2025-08-11] MEDS ORDERED: Lidocaine 2% Viscous Soln 15 ML UDC PO ONE (23:40)
[2025-08-12] VITALS: BP 172/87
[2025-08-12] MEDS ORDERED: LORazepam 2 MG/ML 1ML Injection IV ONE (00:20)
== END 2025-08-12 00:33 | disposition home or self-care (01) ==
LOC: ER 20:45
PROVIDERS: Student in an Organized Health Care Education/Training Program
DX: R11.2 Nausea with vomiting, unspecified (principal); E10.9 Type 1 diabetes mellitus without complications; F17.200 Nicotine dependence, unspecified, uncomplicated; Z79.82 Long term (current) use of aspirin; Z88.0 Allergy status to penicillin; Z88.8 Allergy status to other drugs, medicaments and biological substances; Z79.4 Long term (current) use of insulin; Z79.899 Other long term (current) drug therapy
CPT/HCPCS: 80053; 83690; 85025; 96361; 96374; 96375; 99284-25; A9270; J2060; J2405; J7120

== ENCOUNTER 2025-08-13 09:35 | Inpatient (IN) | payer OTHER ==
[~2025-08-13] VITALS: Ht 175.3 cm; Wt 95.2 kg
[2025-08-13] MEDS ORDERED: Ondansetron HCl 2 MG / ML 2ML Vial IV ONE (10:35)
[2025-08-13 11:31] LABS: BASOPHILS ABSOLUTE AUTO 0.03 K/mm3 (0.00-0.23); BASOPHILS PERCENT AUTO 0 % (0-2); EOSINOPHILS ABSOLUTE AUTO 0.00 K/mm3 (0.00-0.68); EOSINOPHILS PERCENT AUTO 0 % (0-6); Hematocrit 40.1 % (37.0-53.0); Hemoglobin 12.5 g/dL (13.5-17.5); IMMATURE GRAN ABSOLUTE AUTO 0.07 K/mm3 (0.00-0.10); IMMATURE GRAN PERCENT AUTO 0 % (0-1); LYMPHOCYTES ABSOLUTE AUTO 1.38 K/mm3 (0.84-5.20); LYMPHOCYTES PERCENT AUTO 7 % (21-46); MONOCYTES ABSOLUTE AUTO 1.09 K/mm3 (0.16-1.47); MONOCYTES PERCENT AUTO 6 % (4-13); Mean Corpuscular HGB Conc 31.2 g/dL (31.5-36.5); Mean Corpuscular Volume 73 fL (80-100); NEUTROPHILS ABSOLUTE AUTO 17.36 K/mm3 (1.96-9.15); NEUTROPHILS PERCENT AUTO 87 % (41-73); NRBC ABSOLUTE 0.00 K/mm3 (0.00-0.02); NRBC Auto 0.0 /100 WBC (0.0-0.2); Platelet Count 576 K/mm3 (150-400); RDW Coefficient Variation 14.8 % (11.7-14.2); RDW Standard Deviation 38.4 fL (35.1-46.3)
[2025-08-13 11:34] LABS: pH Blood Venous 7.59 (7.34-7.37)
[2025-08-13 12:06] LABS: Alanine Aminotransfer (ALT/SGP 26.0 U/L (12-78); Albumin, Blood 4.6 g/dL (3.4-5.0); Albumin/Globulin Ratio 1.1 (0.8-1.8); Anion Gap 12.0 mmol/L (3-11); Aspartate Aminotrans (AST/SGOT 17.0 U/L (12-37); Bilirubin, Total 0.8 mg/dL (0.1-1.0); Blood Urea Nitrogen 22.0 mg/dL (8-24); CO2, Blood 37.0 mmol/L (21-32); Calcium, Blood 10.4 mg/dL (8.5-10.1); Chloride, Blood 90.0 mmol/L (98-108); Creatinine, Blood 0.8 mg/dL (0.60-1.20); Globulin, Blood 4.1 g/dL (2.2-4.0); Glucose, Blood 155.0 mg/dL (70-99); Potassium, Blood 2.6 mmol/L (3.5-5.5); Sodium, Blood 136.0 mmol/L (136-145); Total Protein, Blood 8.7 g/dL (6.4-8.2)
[2025-08-13] MEDS ORDERED: NS 1,000 ML IV SCH ×2 (14:05→19:00)
[2025-08-13] MEDS ORDERED: DiphenhydrAMINE HCl 50 MG/ML 1ML Vial IV ONE (15:20)
[2025-08-13] MEDS ORDERED: FLU VACC TS2025-26(6MOS UP)/PF 45 MCG/0.5 ML SYRINGE IM SCH (15:45)
[2025-08-13] MEDS ORDERED: Ondansetron HCl 2 MG / ML 2ML Vial IV PRN (15:45)
[2025-08-13] MEDS ORDERED: D5W-NS 1,000 ML IV SCH (16:00)
[2025-08-13] MEDS ORDERED: Magnesium Sulf 2 GM/Water 50ML 50 ML IV STA (16:27)
[2025-08-13 16:29] LABS: Source, Urine Clean Catch
[2025-08-13] MEDS ORDERED: Pantoprazole Sodium 40 MG Injection IV SCH (16:30)
[2025-08-13 16:32] LABS: Bilirubin, Urine Neg (Neg); Color, Urine Yellow (P-Yellow); Glucose Qualitative, Urine Neg (Neg); Ketones, Urine 3+ (Neg); Leukocyte Esterase, Urine Neg (Neg); Protein, Urine 3+ (Neg); Specific Gravity, Urine 1.015 (1.003-1.022); Urobilinogen, Urine 1+ (Normal)
[2025-08-13 16:38] LABS: Red Blood Cells, Urine 0-2 /hpf (0-2); White Blood Cells, Urine 0-2 /hpf (0-5)
[2025-08-13 17:47] VITALS: BP 158/97
[2025-08-13] MEDS ORDERED: Insulin Regular 100 UNIT/ML 10ML Vial SC SCH (18:00)
--- NOTE | 2025-08-13 18:06 | NUR ---
ADMITTED TO ROOM 356 FROM ED AT 1740. PT ORIENTED TO ROOM AND CALL LIGHT PT IS WITHDRAWN, ABLE TO AMBULATE FROM GOURNEY TO BED ADQ STRENGTH. DENIES PAIN, STAETS ACTIVE NAUSEA. HAS IV NS RUNNING CONCURRENT WITH KCL RF. UNABLE TO KEEP FLUIDS DOWN, TAKING ICE CHIPS SPARINGLY TO MOISTEN MOUTH. WILL CONT TO CONG
[2025-08-13 19:37] VITALS: BP 158/96
--- NOTE | 2025-08-13 19:40 | NUR ---
SUMMARY- PT ADMITTED 1739, WITHDRAWN AND WONT TO ANSWER MANY QUESTIONS, CURLS UP IN POSITION AND ATTEMPTING TO SLEEP. CAME FROM ID WITH NS 250ML/HR CONCURRENT WITH IV KCL 40MEQ COMPLETED BY END OF SHIFT. 1L NS WAS ADMINISTERED WITH THE KCL ACCORDING TO NICO KIRBY RN BECAUSE KCL WAS BURNING. SLOWED TO PERSCRIBED RATE OF 75ML/HR FOR REMAINDER OF LITER. 2ND BAG OF KCL 40MEQ IV ORDERED BY DR POMPA. REPORTED TO YUE SAUNDERS RN TO ASSURE THIS BAG IS TO BE RUN EVEN THOUGH ONE ALREADY ADMIN OR TO RUN A KCL LAB FIRST. ALSO TO SEE IF MAGNESIUM IV SHOULD BE ADMIN. PT UNABLE TO TOLERATE PO INTAKE, TAKING IN ICE SPARINGLY. TRIED DILUTED LEMONAID AND HAD 500ML EMESIS IMMEDIATELY, YELLOW CLEAR EMESIS. MEDICATED WITH ZOFRAN AND PROTONIX, HELD ORAL KCL.
--- NOTE | 2025-08-13 19:46 | NUR ---
CALLED HOSPITALIST VERIFIED THAT THEY STILL WANTED US TO GIVE IV K+ AND IV MG++ AT THIS TIME. WILL PROCEED TO ADMINISTER
[2025-08-13 23:44] VITALS: BP 164/104
[2025-08-14 00:09] LABS: Anion Gap 10.0 mmol/L (3-11); Blood Urea Nitrogen 15.0 mg/dL (8-24); CO2, Blood 32.0 mmol/L (21-32); Calcium, Blood 9.2 mg/dL (8.5-10.1); Chloride, Blood 99.0 mmol/L (98-108); Creatinine, Blood 0.79 mg/dL (0.60-1.20); Glucose, Blood 77.0 mg/dL (70-99); Potassium, Blood 3.2 mmol/L (3.5-5.5); Sodium, Blood 138.0 mmol/L (136-145)
[2025-08-14 04:32] VITALS: BP 160/99
[2025-08-14] MEDS ORDERED: DiphenhydrAMINE HCl 50 MG/ML 1ML Vial IV ONE (05:00)
[2025-08-14 05:10] LABS: BASOPHILS ABSOLUTE AUTO 0.03 K/mm3 (0.00-0.23); BASOPHILS PERCENT AUTO 0 % (0-2); EOSINOPHILS ABSOLUTE AUTO 0.00 K/mm3 (0.00-0.68); EOSINOPHILS PERCENT AUTO 0 % (0-6); Hematocrit 38.5 % (37.0-53.0); Hemoglobin 11.8 g/dL (13.5-17.5); IMMATURE GRAN ABSOLUTE AUTO 0.08 K/mm3 (0.00-0.10); IMMATURE GRAN PERCENT AUTO 1 % (0-1); LYMPHOCYTES ABSOLUTE AUTO 2.48 K/mm3 (0.84-5.20); LYMPHOCYTES PERCENT AUTO 15 % (21-46); MONOCYTES ABSOLUTE AUTO 1.22 K/mm3 (0.16-1.47); MONOCYTES PERCENT AUTO 8 % (4-13); Mean Corpuscular HGB Conc 30.6 g/dL (31.5-36.5); Mean Corpuscular Volume 75 fL (80-100); NEUTROPHILS ABSOLUTE AUTO 12.31 K/mm3 (1.96-9.15); NEUTROPHILS PERCENT AUTO 76 % (41-73); NRBC ABSOLUTE 0.00 K/mm3 (0.00-0.02); NRBC Auto 0.0 /100 WBC (0.0-0.2); Platelet Count 486 K/mm3 (150-400); RDW Coefficient Variation 14.6 % (11.7-14.2); RDW Standard Deviation 39.8 fL (35.1-46.3)
--- NOTE | 2025-08-14 05:32 | NUR ---
SHIFT SUMMARY ADMITTED FOR HYPOKALEMIA. FULL CODE. N/V CONTINUOUSLY THROUGHOUT SHIFT WITH ANY PO INTAKE. ODDLY, EVEN MERE SIPS OF FLUIDS CAUSE COPIOUS VOMITING - THE PATIENT ANGRILY DEMANDS MORE FLUIDS. WE HAVE NOW PROVIDED HIM ICE CHIPS ALL PO TRIALS HAVE FAILED. WE DID FIND HIS HOME INSULIN PEN ON HIS BEDSIDE TABLE, HE REFUSES TO LET US STORE IT FOR HIM AND WANTS IT TO REMAIN IN HIS POCKET. HE DENIES SELF-MEDICATING WITH THAT INSULIN. IV K+ AND IV MG++ GIVEN ORDERED. TELEMETRY: TACHY @ 117 BPM. Q6 CBG'S, HIGH SS. IV FLUID INFUSING.
[2025-08-14 05:48] LABS: Anion Gap 10.0 mmol/L (3-11); Blood Urea Nitrogen 15.0 mg/dL (8-24); CO2, Blood 34.0 mmol/L (21-32); Calcium, Blood 9.4 mg/dL (8.5-10.1); Chloride, Blood 98.0 mmol/L (98-108); Creatinine, Blood 0.86 mg/dL (0.60-1.20); Glucose, Blood 99.0 mg/dL (70-99); Potassium, Blood 3.1 mmol/L (3.5-5.5); Sodium, Blood 139.0 mmol/L (136-145)
[2025-08-14] MEDS ORDERED: Insulin Glargine 100 Unit/ML 3 ML SYR SC SCH ×2 (06:00→21:47)
[2025-08-14] MEDS ORDERED: LORazepam 2 MG/ML 1ML Injection IV PRN (07:15)
[2025-08-14 07:48] VITALS: BP 139/97
[2025-08-14] MEDS ORDERED: D5W-1/2NS 1,000 ML IV SCH (08:00)
[2025-08-14] MEDS ORDERED: Potassium Chl 20MEQ/Water100ML 100 ML IV SCH (08:00)
[2025-08-14] MEDS ORDERED: Enoxaparin 40 MG/0.4 ML SYR SC SCH (09:00)
[2025-08-14 12:11] VITALS: BP 147/92
[2025-08-14 15:15] VITALS: BP 165/95
[2025-08-14] MEDS ORDERED: BENADRYL25 MG PO (15:25)
[2025-08-14 16:10] LABS: Anion Gap 6.0 mmol/L (3-11); Blood Urea Nitrogen 16.0 mg/dL (8-24); CO2, Blood 34.0 mmol/L (21-32); Calcium, Blood 9.4 mg/dL (8.5-10.1); Chloride, Blood 100.0 mmol/L (98-108); Creatinine, Blood 0.79 mg/dL (0.60-1.20); Glucose, Blood 213.0 mg/dL (70-99); Potassium, Blood 3.7 mmol/L (3.5-5.5); Sodium, Blood 136.0 mmol/L (136-145)
--- NOTE | 2025-08-14 17:31 | NUR ---
PATIENT SLEPT OFF AND ON THIS SHIFT, ONLY GETTING UP TO SHOWER AND USE THE RESTROOM. PATIENT COOPERATIVE WITH CARE. NAUSEA NOTED AND MEDICATION GIVEN THIS AM. PATIENT HAS NO NOTED VOMITTING THIS AFTERNOON. REQUESTING ICE TEA AND TOLERATING WELL.
[2025-08-14 19:29] VITALS: BP 124/69
[2025-08-14 23:48] VITALS: BP 143/82
[2025-08-15 03:53] VITALS: BP 127/91
[2025-08-15 05:24] LABS: BASOPHILS ABSOLUTE AUTO 0.05 K/mm3 (0.00-0.23); BASOPHILS PERCENT AUTO 1 % (0-2); EOSINOPHILS ABSOLUTE AUTO 0.08 K/mm3 (0.00-0.68); EOSINOPHILS PERCENT AUTO 1 % (0-6); Hematocrit 35.9 % (37.0-53.0); Hemoglobin 10.8 g/dL (13.5-17.5); IMMATURE GRAN ABSOLUTE AUTO 0.02 K/mm3 (0.00-0.10); IMMATURE GRAN PERCENT AUTO 0 % (0-1); LYMPHOCYTES ABSOLUTE AUTO 3.00 K/mm3 (0.84-5.20); LYMPHOCYTES PERCENT AUTO 30 % (21-46); MONOCYTES ABSOLUTE AUTO 0.82 K/mm3 (0.16-1.47); MONOCYTES PERCENT AUTO 8 % (4-13); Mean Corpuscular HGB Conc 30.1 g/dL (31.5-36.5); Mean Corpuscular Volume 74 fL (80-100); NEUTROPHILS ABSOLUTE AUTO 6.21 K/mm3 (1.96-9.15); NEUTROPHILS PERCENT AUTO 61 % (41-73); NRBC ABSOLUTE 0.00 K/mm3 (0.00-0.02); NRBC Auto 0.0 /100 WBC (0.0-0.2); Platelet Count 382 K/mm3 (150-400); RDW Coefficient Variation 14.4 % (11.7-14.2); RDW Standard Deviation 38.4 fL (35.1-46.3)
[2025-08-15 06:17] LABS: Anion Gap 6.0 mmol/L (3-11); Blood Urea Nitrogen 15.0 mg/dL (8-24); CO2, Blood 34.0 mmol/L (21-32); Calcium, Blood 9.3 mg/dL (8.5-10.1); Chloride, Blood 98.0 mmol/L (98-108); Creatinine, Blood 0.84 mg/dL (0.60-1.20); Glucose, Blood 125.0 mg/dL (70-99); Potassium, Blood 3.4 mmol/L (3.5-5.5); Sodium, Blood 135.0 mmol/L (136-145)
[2025-08-15 07:16] VITALS: BP 168/95
--- NOTE | 2025-08-15 07:19 | NUR ---
DIRECTOR OF PRODUCT MANAGEMENT SUMMARY PT A&OX4, VSS. ABLE TO COMMUNICATE NEEDS APPROPRIATELY. PT HAS BEEN ASLEEP FOR MOST OF THE NIGHT. CHEST RISE/RESPIRATIONS NOTED. UP INTERMITTENTLY TO SHOWER. ATIVAN & ZOFRAN GIVEN 1X EACH W/ MOD EFFECT. PT REQUESTED [employer] CREAM TO HELP W/ NAUSEA. ORDER OBTAINED AND ADMIN W/ MOD EFFECT. PT REMAINS ON TELE. SR AT 86. BED RAILS UP X 2, BED IN LOWEST POSITION, BED WHEELS LOCKED, PERSONAL BELONGINGS AND CALL LIGHT WITHIN REACH FOR SAFETY.
[2025-08-15] MEDS ORDERED: Magnesium Sulf 2 GM/Water 50ML 50 ML IV ONE (07:35)
[2025-08-15 08:02] VITALS: BP 126/70
[2025-08-15] MEDS ORDERED: NS 1,000 ML IV SCH (13:00)
[2025-08-15 15:16] VITALS: BP 143/89
[2025-08-15] MEDS ORDERED: CAPSAICIN60 G1 TOP (15:32)
[2025-08-15] MEDS ORDERED: TRANSDERM-SCOP1 EA10 TD (15:33)
--- NOTE | 2025-08-15 16:46 | NUR ---
DISCHARGE SUMMARY PATIENT DISCHARGED HOME, DROVE SELF, WALKED OUT. A/OX4. ONE EPISODE OF EMESIS NOTED, PATIENT STATES HE IS ABLE TO MANAGE SYMPTOMS AT HOME AND WILL CONTINUE HIS "HOME REMEDIES" THAT ARE PROVEN TO WORK, WOULD NOT ELABORATE ON THESE. IV REMOVED WITHOUT COMPLICATION. DISCHARGE PACKET GIVEN AND REVIEWED, QUESTIONS ANSWERED, VERBALIZED UNDERSTANDING.
[2025-08-16] MEDS ORDERED: Pantoprazole Sodium 40 MG Injection IV SCH (09:00)
== END 2025-08-15 15:44 | disposition home or self-care (01) | DRG 641 ==
LOC: ER 09:35 → MEDS 09:36
PROVIDERS: Student in an Organized Health Care Education/Training Program; ADMIT Student in an Organized Health Care Education/Training Program
DX: E87.6 Hypokalemia (principal); E87.3 Alkalosis; R11.2 Nausea with vomiting, unspecified; F12.90 Cannabis use, unspecified, uncomplicated; M54.50 Low back pain, unspecified; G89.29 Other chronic pain; F31.9 Bipolar disorder, unspecified; F41.9 Anxiety disorder, unspecified; D64.9 Anemia, unspecified; E10.65 Type 1 diabetes mellitus with hyperglycemia; F17.210 Nicotine dependence, cigarettes, uncomplicated; E88.89 Other specified metabolic disorders; Z86.19 Personal history of other infectious and parasitic diseases; Z79.4 Long term (current) use of insulin; Z79.899 Other long term (current) drug therapy; Z88.1 Allergy status to other antibiotic agents; Z88.6 Allergy status to analgesic agent; E10.9 Type 1 diabetes mellitus without complications; F17.200 Nicotine dependence, unspecified, uncomplicated; Z79.82 Long term (current) use of aspirin; Z88.0 Allergy status to penicillin; Z88.8 Allergy status to other drugs, medicaments and biological substances
CPT/HCPCS: 36415; 71046; 74177; 80048; 80053; 81001; 82010; 82803; 82947; 83690; 83735; 85025; 96361; 96365-59; 96366; 96374; 96375; 99284-25; 99285-25; A9270; G0378; J1200; J1650; J1815; J2060; J2405; J2470; J3475; J3480; J7030; J7042; J7050; J7120; Q9967

== ENCOUNTER 2025-09-20 08:03 | Inpatient (IN) | payer OTHER ==
[2025-09-20] VITALS (21 sets, daily range): BP systolic 111–166; BP diastolic 48–82
[~2025-09-20] VITALS: Ht 175.3 cm; Wt 84.4 kg
[~2025-09-20 08:03] MED LIST changes: +BENADRYL25 MG PO; +CAPSAICIN60 G1 TOP; +TRANSDERM-SCOP1 EA10 TD
[2025-09-20] MEDS ORDERED: NS 1,000 ML IV SCH ×3 (08:45→15:00)
[2025-09-20 09:08] LABS: BASOPHILS ABSOLUTE AUTO 0.02 K/mm3 (0.00-0.23); BASOPHILS PERCENT AUTO 0 % (0-2); EOSINOPHILS ABSOLUTE AUTO 0.01 K/mm3 (0.00-0.68); EOSINOPHILS PERCENT AUTO 0 % (0-6); Hematocrit 46.1 % (37.0-53.0); Hemoglobin 14.8 g/dL (13.5-17.5); IMMATURE GRAN ABSOLUTE AUTO 0.06 K/mm3 (0.00-0.10); IMMATURE GRAN PERCENT AUTO 0 % (0-1); LYMPHOCYTES ABSOLUTE AUTO 2.06 K/mm3 (0.84-5.20); LYMPHOCYTES PERCENT AUTO 14 % (21-46); MONOCYTES ABSOLUTE AUTO 1.25 K/mm3 (0.16-1.47); MONOCYTES PERCENT AUTO 9 % (4-13); Mean Corpuscular HGB Conc 32.1 g/dL (31.5-36.5); Mean Corpuscular Volume 72 fL (80-100); NEUTROPHILS ABSOLUTE AUTO 11.12 K/mm3 (1.96-9.15); NEUTROPHILS PERCENT AUTO 77 % (41-73); NRBC ABSOLUTE 0.02 K/mm3 (0.00-0.02); NRBC Auto 0.1 /100 WBC (0.0-0.2); Platelet Count 662 K/mm3 (150-400); RDW Coefficient Variation 20.9 % (11.7-14.2); RDW Standard Deviation 46.3 fL (35.1-46.3)
[2025-09-20 09:29] LABS: pH Blood Venous 7.70 (7.34-7.37)
[2025-09-20] MEDS ORDERED: DiphenhydrAMINE HCl 50 MG/ML 1ML Vial IV ONE ×2 (09:30→15:20)
[2025-09-20 09:34] LABS: Influenza A, PCR NEGATIVE (NEGATIVE); Influenza B, PCR NEGATIVE (NEGATIVE); Resp Syncytial Virus, PCR NEGATIVE (NEGATIVE); SARS-Cov-2 (COVID-19) PCR, MMC NEGATIVE (NEGATIVE)
[2025-09-20] MEDS ORDERED: Benztropine Mesylate 1 MG/ML 2ML Amp IV ONE (10:00)
[2025-09-20 10:58] LABS: Alanine Aminotransfer (ALT/SGP 32.0 U/L (12-78); Albumin, Blood 5.3 g/dL (3.4-5.0); Albumin/Globulin Ratio 1.3 (0.8-1.8); Anion Gap 22.0 mmol/L (3-11); Aspartate Aminotrans (AST/SGOT 30.0 U/L (12-37); Bilirubin, Total 1.7 mg/dL (0.1-1.0); Blood Urea Nitrogen 45.0 mg/dL (8-24); CO2, Blood 32.0 mmol/L (21-32); Calcium, Blood 10.7 mg/dL (8.5-10.1); Chloride, Blood 83.0 mmol/L (98-108); Creatinine, Blood 2.18 mg/dL (0.60-1.20); Globulin, Blood 4.1 g/dL (2.2-4.0); Glucose, Blood 181.0 mg/dL (70-99); Potassium, Blood 2.7 mmol/L (3.5-5.5); Sodium, Blood 134.0 mmol/L (136-145); Total Protein, Blood 9.4 g/dL (6.4-8.2)
[2025-09-20 11:31] LABS: Magnesium, Blood 2.3 mg/dL (1.6-2.4); Phosphorus, Blood 4.3 mg/dL (2.5-4.9)
[2025-09-20] MEDS ORDERED: NS 1,000 ML IV STA (12:46)
[2025-09-20] MEDS ORDERED: FLU VACC TS2025-26(6MOS UP)/PF 45 MCG/0.5 ML SYRINGE IM SCH (12:50)
[2025-09-20] MEDS ORDERED: Ondansetron HCl 2 MG / ML 2ML Vial IV PRN (12:50)
[2025-09-20 13:42] LABS: Albumin, Blood 4.5 g/dL (3.4-5.0); Anion Gap 15 mmol/L (3-11); Blood Urea Nitrogen 46 mg/dL (8-24); CO2, Blood 35 mmol/L (21-32); Calcium, Blood 9.6 mg/dL (8.5-10.1); Chloride, Blood 88 mmol/L (98-108); Creatinine, Blood 1.79 mg/dL (0.60-1.20); Glucose, Blood 261 mg/dL (70-99); Phosphorus, Blood 5.4 mg/dL (2.5-4.9); Potassium, Blood 3.2 mmol/L (3.5-5.5); Sodium, Blood 135 mmol/L (136-145)
[2025-09-20] MEDS ORDERED: Metoprolol Tartrate 1 MG/ML 5 ML VIAL IV PRN (13:55)
--- NOTE | 2025-09-20 15:00 | NUR ---
PROVIDER NOTIFICATION PTS BLOOD SUGAR CHECKED UPON ARRIVAL TO UNIT, RESULTED AT 404, NO INSULIN ORDERS ON EMAR. DR. ZAZUETA CALLED AND NOTIFIED, NO NEW ORDERS GIVEN, INSTRUCTED TO FINISH CURRENT FLUID BOLUS AND POTASSIUM INFUSION AND TO RECHECK LABS AT 1700. BED IN LOWEST POSITION, CALL LIGHT WITHIN REACH, CARE CONTINUES.
--- NOTE | 2025-09-20 15:41 | NUR ---
ARRIVAL TO UNIT - 1445 PT ARRIVED TO UNIT VIA GOURNEY. PT ABLE TO STAND/PIVOT TO BED c MIN SBA R/T LINE MANAGEMENT/WEAKNESS. PT A&O x4. PT LETHARGIC, RESPONDS TO YES/NO QUESTIONS c HEAD NOD, SOFT SPEECH, MIN VERBAL RESPONSES R/T PT REPORTS OF SOB. SPO2 >98% 2L O2 VIA NC. PT HAS MOMENTS OF UNLABORED RESPIRATIONS. PT THEN HAS MOMENTS OF INCREASED WORK OF BREATHING, PT REPORTS SOB, PT ASSUMES TRIPOD POSITION TO EASE WORK OF BREATHING, SPO2 REMAINS >95%. HR SINUS TACH 100-130s, MAP >65, SBP 150s, PT DENIES CHEST PAIN/PRESSURE. DURING PERIODS OF INCREASED WOB, PT HAS INVOLUNTARY MUSCLE SPASMS/RIGIDITY IN ARMS. PT NPO, REQUESTING WATER, MOUTH MOISTURIZER PROVIDED. ENDORSES MIN NAUSEA, DENIES ANTIEMETICS PER EMAR AT THIS TIME. IV FLUIDS INFUSING PER EMAR. PHONE IN BED c PT & GLASSES ON PT FACE. ORIENTED TO UNIT, CALL LIGHT IN REACH.
[2025-09-20] MEDS ORDERED: Potassium Chl 20MEQ/Water100ML 100 ML IV SCH (16:00)
[2025-09-20 16:04] LABS: pH Blood Venous 7.43 (7.34-7.37)
[2025-09-20 16:40] LABS: Source, Urine Clean Catch
[2025-09-20 17:04] LABS: Color, Urine Yellow (P-Yellow); Glucose Qualitative, Urine 3+ (Neg); Ketones, Urine 3+ (Neg); Leukocyte Esterase, Urine 1+ (Neg); Protein, Urine 3+ (Neg); Specific Gravity, Urine 1.025 (1.003-1.022); Urobilinogen, Urine 1+ (Normal)
--- NOTE | 2025-09-20 17:12 | NUR ---
DR CHASTITY ZAZUETA NOTIFIED OF PT GLUCOSE >500. NO NEW ORDERS AT THIS TIME. STATES TO CALL BACK AFTER POTASSIUM IS RESULTED FOR FURTHER ORDERS.
[2025-09-20 17:18] LABS: Bilirubin, Urine 1+ (Neg)
[2025-09-20 17:20] LABS: Red Blood Cells, Urine 0-2 /hpf (0-2)
[2025-09-20 17:34] LABS: Glucose, Blood 493 mg/dL (70-99)
[2025-09-20 17:49] LABS: Albumin, Blood 3.2 g/dL (3.4-5.0); Anion Gap 16 mmol/L (3-11); Blood Urea Nitrogen 43 mg/dL (8-24); CO2, Blood 28 mmol/L (21-32); Calcium, Blood 7.8 mg/dL (8.5-10.1); Chloride, Blood 97 mmol/L (98-108); Creatinine, Blood 1.51 mg/dL (0.60-1.20); Glucose, Blood 495 mg/dL (70-99); Magnesium, Blood 2.0 mg/dL (1.6-2.4); Phosphorus, Blood 5.4 mg/dL (2.5-4.9); Potassium, Blood 3.9 mmol/L (3.5-5.5); Sodium, Blood 137 mmol/L (136-145)
--- NOTE | 2025-09-20 18:05 | NUR ---
MD CONSULT DR. ZAZUETA NOTIFIED OF PT 1700 LABS & GLUCOSE RESULT. MD ORDER 10 UNITS IV INSULIN NOW PER EMAR. MD ORDER INITIATION OF INSULIN DRIP @ 0.1UNITS/KG/HR. MD CHANGE ORDER OF GLUCOSE CHECKS FROM Q2 TO Q1. MD STATES IF GLUCOSE DROPS BELOW 250, TO CALL THE HOSPITALIST TO CHANGE IV FLUIDS FROM NS TO D5.
[2025-09-20] MEDS ORDERED: Insulin Regular 100 UNIT/ML 10ML Vial IV ONE (18:20)
[2025-09-20] MEDS ORDERED: Insulin Human Regular 100 UNIT in NS 100 ML IV SCH (18:30)
--- NOTE | 2025-09-20 18:33 | NUR ---
SHIFT SUMMARY PT A&O x4, LETHARGIC. NPO, PT ENDORSES MIN EMESIS, DENIES ANTIEMETICS. HR 90s-130s, MAP >65. SPO2 >96% ON 3L O2 VIA NC. PT HAS INTERMITTENT EPISODES REPORTING SOB/INCREASED WOB c INVOLUNTARY MUSCLE SPASMS & RIGIDITY IN UPPER EXTREMITITES. INSULIN DRIP PER FLOWSHEET. NS INFUSING @ 100mL/HR. DARK URINE OUTPUT. PT RESTING IN BED. CALL LIGHT IN REACH, REPORT TO BE GIVEN TO CHIP GUAN.
[2025-09-20] MEDS ORDERED: D5W-1/2NS 1,000 ML IV SCH (20:45)
[2025-09-20] MEDS ORDERED: LORazepam 2 MG/ML 1ML Injection IV PRN (20:55)
[2025-09-20 21:33] LABS: pH Blood Venous 7.53 (7.34-7.37)
[2025-09-20 21:35] LABS: Albumin, Blood 3.9 g/dL (3.4-5.0); Anion Gap 12 mmol/L (3-11); Blood Urea Nitrogen 43 mg/dL (8-24); CO2, Blood 32 mmol/L (21-32); Calcium, Blood 9.2 mg/dL (8.5-10.1); Chloride, Blood 101 mmol/L (98-108); Creatinine, Blood 1.19 mg/dL (0.60-1.20); Glucose, Blood 182 mg/dL (70-99); Magnesium, Blood 2.5 mg/dL (1.6-2.4); Phosphorus, Blood 2.6 mg/dL (2.5-4.9); Potassium, Blood 3.2 mmol/L (3.5-5.5); Sodium, Blood 142 mmol/L (136-145)
[2025-09-21] VITALS (22 sets, daily range): BP systolic 99–132; BP diastolic 51–90
[2025-09-21 00:54] LABS: Anion Gap 6.0 mmol/L (3-11); Blood Urea Nitrogen 35.0 mg/dL (8-24); CO2, Blood 38.0 mmol/L (21-32); Calcium, Blood 8.9 mg/dL (8.5-10.1); Chloride, Blood 104.0 mmol/L (98-108); Creatinine, Blood 1.11 mg/dL (0.60-1.20); Glucose, Blood 97.0 mg/dL (70-99); Potassium, Blood 3.5 mmol/L (3.5-5.5); Sodium, Blood 144.0 mmol/L (136-145)
[2025-09-21 04:59] LABS: pH Blood Venous 7.43 (7.34-7.37)
--- NOTE | 2025-09-21 05:09 | NUR ---
SHIFT SUMMARY PT A/OX4 T/O SHIFT. WAS ABLE TO SLEEP MOST OF THE NIGHT. NSR W/ HR 60-80'S, BP STABLE. ON 3L NC WHILE ASLEEP R/T A FEW EPISODES OF DESATTING. VOIDING W/ URINAL INDEPENDENTLY. TOLERATING ICE CHIPS THIS AM. REMAINED ON INSULIN GTT T/O NIGHT DUE TO N/V, INABILITY TO TOLERATE ANYTHING PO. PT STATES HE "FEELS BETTER THAN HE DID LAST NIGHT". GAVE ELECTROLYTE REPLACEMENT FOR POTASSIUM. POWERGLIDE WAS PLACED THIS SHIFT. D5 1/2 NS INFUSING AT 250ML/H, INSULIN AT 4.2U/H. PT HAD ONE EPISODE EARLY THIS AM WHERE HIS CBG WAS 89, FOLLOWED DKA PROTOCOL, PAUSED INSULIN GTT AND RECHECKED CBG IN 30 MINS. NEXT CBG WAS 96. PROVIDER NOTIFIED, ORDERS TO INCREASE FLUIDS FROM 200ML TO 250ML/H AND RESTART INSULIN GTT. CBGS HAVE IMPROVED. NO ACUTE EVENTS. CALL LIGHT IN REACH.
[2025-09-21 05:20] LABS: Anion Gap 7.0 mmol/L (3-11); Blood Urea Nitrogen 28.0 mg/dL (8-24); CO2, Blood 35.0 mmol/L (21-32); Calcium, Blood 8.6 mg/dL (8.5-10.1); Chloride, Blood 106.0 mmol/L (98-108); Creatinine, Blood 1.12 mg/dL (0.60-1.20); Glucose, Blood 126.0 mg/dL (70-99); Potassium, Blood 3.4 mmol/L (3.5-5.5); Sodium, Blood 145.0 mmol/L (136-145)
[2025-09-21] MEDS ORDERED: Insulin Human Lispro 100 Units/ML 3ML Syringe SC SCH ×2 (11:30→16:30)
[2025-09-21] MEDS ORDERED: Insulin Human Lispro 100 Units/ML 3ML Syringe SC ONE (14:10)
--- NOTE | 2025-09-21 18:06 | NUR ---
Patient is well known by staff with past admissions of DKA N/V. Was able to stop insulin infusion today and transition to sliding scale coverage with long acting insulin to start this evening. Nausea and vomiting controlled today with PRN Zofran and Ativan (see MAR) Patient was able to tolerate lunch and supper without an emesis episode. Due to uncontrolled spikes of glucose reading with past admissions, patient to remain on ICU tonight for reevaluation of level of care unit tomorrow.
[2025-09-21] MEDS ORDERED: Insulin Glargine 100 Unit/ML 3 ML SYR SC SCH (21:00)
--- NOTE | 2025-09-21 22:04 | NUR ---
ASSUMPTION OF CARE ASSUMED CARE OF PT APPROX 1900. PT IS A/O X4, ABLE TO ANSWER QUESTIONS AND USE CALL LIGHT APPROPRIATELY. DENIES HEADACHE, N/V. SINUS RHYTHM ON MONITOR WITH RATE IN THE 70S-80S, BP STABLE WITH MAP >65 AND SYSTOLIC IN THE 120S. PT MAINTAINING SATS >95% ON RA AND USING 2L NC DURING SLEEP DUE TO SATS DIPPING INTO HIGH 80S. PT IS ABLE TO AMBULATE TO TOILET IN ROOM WITH ASSISTANCE IN UNHOOKING CORDS, ABLE TO INDEPENDENTLY REPOSITION IN THE BED NEEDED. ENDORSES DESIRE TO EAT, WAS ON FULL LIQUIDS AT START OF SHIFT, CONTACTED PROVIDER FOR ORDERS TO ADVANCE DIET TOLERATED TO GOAL OF CONSISTENT CARB DIET.
[2025-09-22] VITALS (12 sets, daily range): BP systolic 99–140; BP diastolic 52–86
[2025-09-22 04:31] LABS: Hematocrit 33.9 % (37.0-53.0); Hemoglobin 9.9 g/dL (13.5-17.5); Mean Corpuscular HGB Conc 29.2 g/dL (31.5-36.5); NRBC ABSOLUTE 0.00 K/mm3 (0.00-0.02); NRBC Auto 0.0 /100 WBC (0.0-0.2); Platelet Count 289 K/mm3 (150-400); RDW Coefficient Variation 18.4 % (11.7-14.2); RDW Standard Deviation 49.1 fL (35.1-46.3)
[2025-09-22 04:33] LABS: Mean Corpuscular Volume 79 fL (80-100)
[2025-09-22 04:49] LABS: Anion Gap 5.0 mmol/L (3-11); Blood Urea Nitrogen 18.0 mg/dL (8-24); CO2, Blood 34.0 mmol/L (21-32); Calcium, Blood 8.5 mg/dL (8.5-10.1); Chloride, Blood 105.0 mmol/L (98-108); Creatinine, Blood 0.9 mg/dL (0.60-1.20); Glucose, Blood 165.0 mg/dL (70-99); Magnesium, Blood 2.3 mg/dL (1.6-2.4); Phosphorus, Blood 3.0 mg/dL (2.5-4.9); Potassium, Blood 4.1 mmol/L (3.5-5.5); Sodium, Blood 140.0 mmol/L (136-145)
--- NOTE | 2025-09-22 04:57 | NUR ---
SHIFT SUMMARY PT REMAINS A/O X4, ABLE TO AMBULATE TO BEDSIDE TOILET INDEPENDENTLY AND USE CALL LIGHT APPROPRIATELY. SINUS RHTYHM ON MONITOR WITH RATES IN THE 70S-80S, BP STABLE WITH MAP >65. PT SATS REMAIN >95% ON RA, USING 2L NC WHILE SLEEPING. PT DENIES N/V, ABLE TO TOLERATE PO INTAKE WELL, DIET WAS ADVANCED PER ORDERS TO CONSISTENT CARB. PT DENIES UNMET NEEDS AT THIS TIME, CALL LIGHT WITHIN REACH.
--- NOTE | 2025-09-22 12:50 | NUR ---
Discharge orders received and reviewed, patient's iv access d/c'd. Reviewed discharge summary with patient and diabetes education. Valuables returned to patient, patient left under own power without difficulty to meet ride.
== END 2025-09-22 12:56 | disposition home or self-care (01) | DRG 637 ==
LOC: ER 08:03 → ICUE 12:45
PROVIDERS: Nurse Practitioner Acute Care; Physician Assistant; ADMIT Internal Medicine
DX: E10.10 Type 1 diabetes mellitus with ketoacidosis without coma (principal); N17.0 Acute kidney failure with tubular necrosis; E87.1 Hypo-osmolality and hyponatremia; E87.3 Alkalosis; E87.6 Hypokalemia; F41.9 Anxiety disorder, unspecified; F31.9 Bipolar disorder, unspecified; D72.829 Elevated white blood cell count, unspecified; D75.839 Thrombocytosis, unspecified; F17.210 Nicotine dependence, cigarettes, uncomplicated; Z79.4 Long term (current) use of insulin; Z88.0 Allergy status to penicillin; Z88.8 Allergy status to other drugs, medicaments and biological substances; Z86.14 Personal history of Methicillin resistant Staphylococcus aureus infection
CPT/HCPCS: 36415; 71045; 80048; 80053; 80069; 81001; 82010; 82803; 82947; 83735; 84100; 84484; 85025; 85027; 87086; 87637; 93005; 93010; 94762; 96361; 96374; 96375; 99285-25; A9270; C1751; G0378; J0515; J1200; J1790; J1815; J2060; J2405; J3480; J7030; J7042; J7050

== ENCOUNTER 2025-10-21 22:48 | Observation (INO) | payer OTHER ==
[~2025-10-21] VITALS: Ht 175.3 cm; Wt 92.8 kg
[2025-10-21] MEDS ORDERED: Ondansetron HCl 2 MG / ML 2ML Vial IV PRN (23:15)
[2025-10-21 23:26] LABS: BASOPHILS ABSOLUTE AUTO 0.01 K/mm3 (0.00-0.23); BASOPHILS PERCENT AUTO 0 % (0-2); EOSINOPHILS ABSOLUTE AUTO 0.00 K/mm3 (0.00-0.68); EOSINOPHILS PERCENT AUTO 0 % (0-6); Hematocrit 38.4 % (37.0-53.0); Hemoglobin 12.1 g/dL (13.5-17.5); IMMATURE GRAN ABSOLUTE AUTO 0.05 K/mm3 (0.00-0.10); IMMATURE GRAN PERCENT AUTO 0 % (0-1); LYMPHOCYTES ABSOLUTE AUTO 1.71 K/mm3 (0.84-5.20); LYMPHOCYTES PERCENT AUTO 12 % (21-46); MONOCYTES ABSOLUTE AUTO 0.89 K/mm3 (0.16-1.47); MONOCYTES PERCENT AUTO 6 % (4-13); Mean Corpuscular HGB Conc 31.5 g/dL (31.5-36.5); Mean Corpuscular Volume 75 fL (80-100); NEUTROPHILS ABSOLUTE AUTO 11.69 K/mm3 (1.96-9.15); NEUTROPHILS PERCENT AUTO 82 % (41-73); NRBC ABSOLUTE 0.00 K/mm3 (0.00-0.02); NRBC Auto 0.0 /100 WBC (0.0-0.2); Platelet Count 559 K/mm3 (150-400); RDW Coefficient Variation 19.5 % (11.7-14.2); RDW Standard Deviation 51.8 fL (35.1-46.3)
[2025-10-21 23:38] LABS: Source, Urine Voided
[2025-10-21 23:45] LABS: Bilirubin, Urine Neg (Neg); Glucose Qualitative, Urine Neg (Neg); Ketones, Urine 3+ (Neg); Leukocyte Esterase, Urine Neg (Neg); Protein, Urine 2+ (Neg); Specific Gravity, Urine 1.010 (1.003-1.022); Urobilinogen, Urine 2+ (Normal)
[2025-10-21 23:47] LABS: Alanine Aminotransfer (ALT/SGP 23.0 U/L (12-78); Albumin, Blood 4.0 g/dL (3.4-5.0); Albumin/Globulin Ratio 1.0 (0.8-1.8); Anion Gap 12.0 mmol/L (3-11); Aspartate Aminotrans (AST/SGOT 21.0 U/L (12-37); Bilirubin, Total 1.0 mg/dL (0.1-1.0); Blood Urea Nitrogen 16.0 mg/dL (8-24); CO2, Blood 32.0 mmol/L (21-32); Calcium, Blood 9.7 mg/dL (8.5-10.1); Chloride, Blood 99.0 mmol/L (98-108); Creatinine, Blood 0.74 mg/dL (0.60-1.20); Globulin, Blood 3.9 g/dL (2.2-4.0); Glucose, Blood 164.0 mg/dL (70-99); Potassium, Blood 3.5 mmol/L (3.5-5.5); Sodium, Blood 139.0 mmol/L (136-145); Total Protein, Blood 7.9 g/dL (6.4-8.2)
[2025-10-21 23:57] LABS: Color, Urine Yellow (P-Yellow)
[2025-10-21 23:58] LABS: Red Blood Cells, Urine 0-2 /hpf (0-2); White Blood Cells, Urine 0-2 /hpf (0-5)
[2025-10-22] MEDS ORDERED: NS 1,000 ML IV SCH ×4 (04:40→13:45)
[2025-10-22] MEDS ORDERED: Ondansetron HCl 2 MG / ML 2ML Vial ONE (05:05)
[2025-10-22 05:31] LABS: pH Blood Venous 7.46 (7.34-7.37)
[2025-10-22] MEDS ORDERED: Pantoprazole Sodium 40 MG Injection IV ONE (06:20)
[2025-10-22] MEDS ORDERED: DiphenhydrAMINE HCl 50 MG/ML 1ML Vial IV ONE (06:25)
[2025-10-22] MEDS ORDERED: Ondansetron HCl 2 MG / ML 2ML Vial IV ONE (11:30)
[2025-10-22] MEDS ORDERED: LORazepam 2 MG/ML 1ML Injection IV STA (11:39)
[2025-10-22] MEDS ORDERED: Ondansetron HCl 2 MG / ML 2ML Vial IV PRN (13:40)
[2025-10-22] MEDS ORDERED: FLU VACC TS2025-26(6MOS UP)/PF 45 MCG/0.5 ML SYRINGE IM SCH (13:45)
[2025-10-22] MEDS ORDERED: NS 1,000 ML IV ONE (13:50)
[2025-10-22 14:00] LABS: Albumin, Blood 3.5 g/dL (3.4-5.0); Anion Gap 14 mmol/L (3-11); Blood Urea Nitrogen 19 mg/dL (8-24); CO2, Blood 26 mmol/L (21-32); Calcium, Blood 8.7 mg/dL (8.5-10.1); Chloride, Blood 99 mmol/L (98-108); Creatinine, Blood 0.73 mg/dL (0.60-1.20); Glucose, Blood 414 mg/dL (70-99); Phosphorus, Blood 3.9 mg/dL (2.5-4.9); Potassium, Blood 3.9 mmol/L (3.5-5.5); Sodium, Blood 135 mmol/L (136-145)
[2025-10-22] MEDS ORDERED: Insulin Human Lispro 100 Units/ML 3ML Syringe SC SCH ×2 (15:13→16:00)
[2025-10-22] MEDS ORDERED: LORazepam 2 MG/ML 1ML Injection IV PRN (16:00)
[2025-10-22 16:31] LABS: pH Blood Venous 7.38 (7.34-7.37)
[2025-10-22 17:03] LABS: Influenza A/2009-H1 Not Detected (NOT DETECT); SARS-Cov-2 (COVID-19), BioFire Not Detected (NOT DETECT)
[2025-10-22 17:21] VITALS: BP 142/88
[2025-10-22 18:03] LABS: Albumin, Blood 3.6 g/dL (3.4-5.0); Anion Gap 11 mmol/L (3-11); Blood Urea Nitrogen 17 mg/dL (8-24); CO2, Blood 29 mmol/L (21-32); Calcium, Blood 8.6 mg/dL (8.5-10.1); Chloride, Blood 102 mmol/L (98-108); Creatinine, Blood 0.74 mg/dL (0.60-1.20); Glucose, Blood 308 mg/dL (70-99); Phosphorus, Blood 3.8 mg/dL (2.5-4.9); Potassium, Blood 3.9 mmol/L (3.5-5.5); Sodium, Blood 138 mmol/L (136-145)
[2025-10-22] MEDS ORDERED: NS 500 ML IV STA (18:20)
--- NOTE | 2025-10-22 18:44 | NUR ---
ARRIVAL TO UNIT PT ARRIVED TO PCU VIA GURNEY AT 1700. PT ABLE TO TRANSFER FROM URNEY TO PCU BED WITH MINIMAL ASSISTANCE. PT ON RA AT TIME OF ARRIVAL. NO REPORT OF N/V/D AT THIS TIME. PT DENIES CHEST PAIN/PRESSURE OR SOB. VSS AT TOME OF ARRIVAL. PT A/OX4 AND ABLE TO ANSWER ALL HX QUESTIONS. PT TOLERATING ICE CHIPS.
[2025-10-22 22:07] VITALS: BP 155/87
[2025-10-22] MEDS ORDERED: CATAPRES0.1 MG PO (22:10)
[2025-10-22 23:16] VITALS: BP 146/79
[2025-10-23 04:08] LABS: Hematocrit 32.4 % (37.0-53.0); Hemoglobin 10.0 g/dL (13.5-17.5); Mean Corpuscular HGB Conc 30.9 g/dL (31.5-36.5); Mean Corpuscular Volume 76 fL (80-100); NRBC ABSOLUTE 0.00 K/mm3 (0.00-0.02); NRBC Auto 0.0 /100 WBC (0.0-0.2); Platelet Count 395 K/mm3 (150-400); RDW Coefficient Variation 18.7 % (11.7-14.2); RDW Standard Deviation 51.0 fL (35.1-46.3)
[2025-10-23 04:34] LABS: Anion Gap 7.0 mmol/L (3-11); Blood Urea Nitrogen 14.0 mg/dL (8-24); CO2, Blood 30.0 mmol/L (21-32); Calcium, Blood 8.5 mg/dL (8.5-10.1); Chloride, Blood 103.0 mmol/L (98-108); Creatinine, Blood 0.68 mg/dL (0.60-1.20); Glucose, Blood 175.0 mg/dL (70-99); Potassium, Blood 3.2 mmol/L (3.5-5.5); Sodium, Blood 137.0 mmol/L (136-145)
[2025-10-23 04:41] VITALS: BP 134/78
--- NOTE | 2025-10-23 06:03 | NUR ---
Shift Summary Pt states very little nausea this shift, although he did take two hour+ long showers. He wanted to advance to full liquid so I called the resident who ordered full liquid and an adv. diet as tolerated order. Pt tolerating full liquid well. Pt is hypertensive, the resident started him on Losartan though pt states he takes Clonidine 0.1 mg TID for HTN and anxiety. Pt also requested a nicotine patch which the resident ordered and I put on. Pt medicated x1 with 0.5 mg IV Ativan for anxiety and nausea per emar. He slept t/o the 2nd half of the shift. No events on tele.
[2025-10-23 08:17] VITALS: BP 113/93
[2025-10-23] MEDS ORDERED: Enoxaparin 40 MG/0.4 ML SYR SC SCH (09:00)
[2025-10-23] MEDS ORDERED: Potassium Chloride 10 Meq Tablet SA PO ONE (11:00)
[2025-10-23] MEDS ORDERED: LOSA25 PO (11:20)
--- NOTE | 2025-10-23 13:08 | NUR ---
DISCHARGE NOTE PT IS A/O X4 ABLE TO MAKE NEEDS KNOWN AND CAN MOVE EXTREMITIES EQUALLY AND BILATERALLY. PT IS AFEBRILE. DISCHARE INSTRUCTIONS ARE PROVIDED TO PT, ALL BELONGINGS LEFT WITH PT. DOCTORS NOTE IS WITH PT. PT LEFT UNIT AT 1150.
== END 2025-10-23 12:18 | disposition home or self-care (01) ==
LOC: ER 22:48 → PCU 22:49
PROVIDERS: Emergency Medicine; ADMIT Internal Medicine
DX: R11.16 Cannabis hyperemesis syndrome (principal); F12.99 Cannabis use, unspecified with unspecified cannabis-induced disorder; R19.7 Diarrhea, unspecified; R10.9 Unspecified abdominal pain; E87.1 Hypo-osmolality and hyponatremia; E10.43 Type 1 diabetes mellitus with diabetic autonomic (poly)neuropathy; F17.210 Nicotine dependence, cigarettes, uncomplicated; Z88.1 Allergy status to other antibiotic agents; Z88.8 Allergy status to other drugs, medicaments and biological substances; Z79.4 Long term (current) use of insulin
CPT/HCPCS: 0202U; 36415; 80048; 80053; 80069; 81001; 82010; 82803; 82947; 83690; 83735; 85025; 85027; 96361; 96372; 96374; 96375; 96376; 99285-25; A9270; G0378; J1200; J1650; J2060; J2405; J2470; J7030; J7040